=== PATIENT | female | born 1935 | race Caucasian/White ===

== ENCOUNTER 2016-11-17 09:18 | Inpatient (IN) | payer MEDICARE, BC ==
[2016-11-17] MEDS ORDERED: Ondansetron INJ* 2 MG/ML VIAL IV PRN (12:33)
[2016-11-17] MEDS ORDERED: Albuterol 2.5 MG/3 ML NEB.SOL* (0.083%) INH PRN (12:33)
[2016-11-17] MEDS ORDERED: Acetaminophen TAB* 325 MG PO PRN (12:33)
[2016-11-17] MEDS ORDERED: Dextrose 50% Syringe 50 ML* 25 GM/50 ML SYRINGE IV PUSH PRN (12:33)
[2016-11-17] MEDS ORDERED: Digoxin IV* 0.5 MG/2 ML AMP (0.25 MG/ML) IV SLOW PU ONE ×2 (12:45→16:00)
--- NOTE | 2016-11-17 13:22 | RAD ---
Indication: Pneumonia. Single frontal view of the chest performed at 1250 hours was reviewed. No prior study is available. No mediastinal shift is noted. Heart is of normal size and configuration. Lung hernández appear clear. IMPRESSION: NO ACTIVE CARDIOPULMONARY DISEASE IS NOTED.
[2016-11-17] MEDS: predniSONE TAB* 20 MG PO SCH (13:31)
[2016-11-17] MEDS: Metoprolol Tartrate TAB* 25 MG PO SCH ×2 (13:31→18:29)
[2016-11-17] MEDS: cefTRIAXone VIAL(*) 1,000 MG in NS 0.9% 50 ML* 50 ML IVPB SCH (14:07)
[2016-11-17] MEDS: Azithromycin IV(*) 500 MG in NS 0.9% 250 ML* 250 ML IVPB SCH (14:43)
[2016-11-17] MEDS: Diltiazem TAB* 30 MG PO SCH ×3 (14:45→23:37)
[2016-11-17 15:43] LABS: Hematocrit 33 % (35-47); Hemoglobin 10.8 g/dl (12.0-16.0); Mean Corpuscular HGB Conc 33 g/dl (31-36); Mean Corpuscular Hemoglobin 30 pg (27-31); Mean Corpuscular Volume 92 fL (80-97); Mean Platelet Volume 8 um3 (7.4-10.4); Red Blood Count 3.63 10^6/ul (4.0-5.4); Red Cell Distribution Width 14 % (10.5-15); White Blood Count 10.7 10^3/ul (3.5-10.8)
[2016-11-17 15:45] LABS: Add Diff/Slide Review? Slide Review Added; Comments Flag Yes
[2016-11-17 16:01] LABS: BUN/Creatinine Ratio 55.8 (8-20); EGFR African American 146.7 (>60); Magnesium 1.2 mg/dL (1.9-2.7); Potassium 3.1 mmol/L (3.5-5.0)
[2016-11-17 16:03] LABS: Calcium 5.3 mg/dL (8.6-10.3)
[2016-11-17 16:13] LABS: TSH (Thyroid Stimulating Horm) 0.83 mcIU/mL (0.34-5.60)
[2016-11-17 16:37] LABS: Urine Bacteria Absent (Absent)
[2016-11-17 16:39] LABS: Urine Bilirubin Negative (Negative); Urine Glucose 3+(>=500 mg/dL) (Negative); Urine Nitrite Negative (Negative)
--- NOTE | 2016-11-17 16:49 | PN ---
Hospitalist Progress Note Hospitalist MEDICINE PROCEDURE NOTE DATE OF PROCEDURE: 11/17/2016 SERVICE: Hospitalist LOCATION OF PROCEDURE: ICU Room 9 PROCEDURE: Midline placement under ultrasound guidance PROCEDURALIST: Moni Pedraza N.P. Consent obtain: Verbal, Long Dwell PIV. Patient stated understanding and agreement. Time out held: Not indicated INDICATION: Multiple attempts by staff members to obtain Labs and vascular access without success. Patient currently has a 22 gauge PIV in the left arm which is tenuous. Multiple lines needed in a critical care setting with pneumonia & Afib requiring multiple IV medications. PROCEDURE: Midline placed with ultrasound guidance in the left lower forearm cephalic. Patient sitting up right in bed. Pre-medication not indicated. Patient tolerated well and stated appreciation for placement of IV with minimal pain. Primary RN notified and at bedside to draw pending labs and blood cultures. Moni Tom
[2016-11-17 16:56] LABS: BUN/Creatinine Ratio 44.2 (8-20); Calcium 8.4 mg/dL (8.6-10.3); EGFR African American 82.1 (>60); EGFR Non-African American 63.8 (>60); Potassium 4.7 mmol/L (3.5-5.0)
[2016-11-17 17:07] LABS: Hematocrit 43 % (35-47); Hemoglobin 13.6 g/dl (12.0-16.0); Mean Corpuscular HGB Conc 32 g/dl (31-36); Mean Corpuscular Hemoglobin 29 pg (27-31); Mean Corpuscular Volume 92 fL (80-97); Mean Platelet Volume 9 um3 (7.4-10.4); Red Blood Count 4.65 10^6/ul (4.0-5.4); Red Cell Distribution Width 14 % (10.5-15); White Blood Count 14.7 10^3/ul (3.5-10.8)
[2016-11-17] MEDS: Albuterol/Ipratropium NEB.SOL* Albuterol 2.5 MG/Ipratropium 0.5 MG 3 ML INH SCH ×3 (17:10→23:15)
[2016-11-17 17:12] LABS: Add Diff/Slide Review? Slide Review Added; Comments Flag Yes
[2016-11-17 17:18] LABS: Calcium 8.4 mg/dL (8.6-10.3); EGFR African American 79.9 (>60); EGFR Non-African American 62.1 (>60); Magnesium 1.9 mg/dL (1.9-2.7); Potassium 4.8 mmol/L (3.5-5.0)
[2016-11-17 17:28] LABS: TSH (Thyroid Stimulating Horm) 1.1 mcIU/mL (0.34-5.60)
[2016-11-17] MEDS: Insulin LISPRO* 1 UNITS UNIT SUBCUT SCH (17:58)
[2016-11-17] MEDS: Atorvastatin* 20 MG TAB PO SCH (17:59)
[2016-11-17] MEDS ORDERED: Enoxaparin(*) 100 MG/ML SYR SUBCUT ONE (18:32)
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
[2016-11-17] MEDS: Mometasone/Formoter 200/5 MDI INH SCH (23:15)
[2016-11-18] MEDS: Metoprolol Tartrate TAB* 25 MG PO SCH ×4 (00:34→22:57)
--- NOTE | 2016-11-18 01:17 | CONS ---
CC: Dr. Puckett, [facility]; Olaf Jones NP,hospitalist service ; Dr. Mercado. * CARDIOLOGY CONSULT: DATE OF CONSULT: 11/17/16 HISTORY OF PRESENT ILLNESS: I was asked by Olaf Jones from hospitalist service to see this 80-year-old female patient who was transferred from [facility] today with rapid atrial fibrillation. The patient was admitted to [facility] because of left lower lobe infiltrate and pneumonia. She does have chronic medical conditions including diabetes mellitus type 2, gastroesophageal reflux disease, hyperlipidemia and systemic arterial hypertension. She had known history of chronic atrial fibrillation since 2008 and she is on Coumadin treatment. She was treated for her pneumonia, but she had an echocardiogram that was done on November 15, showed EF 30% to 35 %, biatrial enlargement, trace aortic insufficiency, moderate mitral insufficiency, moderate tricuspid insufficiency, moderate to severe pulmonary hypertension, dilated ascending aorta. It was noticed that she was on calcium channel lilli and beta lilli, but her heart rate was still uncontrolled. She was transferred for further medical management. In speaking to her, she gives no active symptoms of chest pain. She said her shortness improved. No orthopnea, no PND, no dizziness, no syncope, no history of congestive heart failure, no edema in the lower extremities, no hematochezia, no scattered rash, no abdominal pain, no syncope, no nausea, no vomiting is appreciated. PAST MEDICAL HISTORY: As outlined above. PAST SURGICAL HISTORY: Includes history of appendectomy, history of cancer of the uterus. She is status post total abdominal hysterectomy and bilateral salpingo- oophorectomy, history of umbilical hernia surgery. She gives no history of drinking and no illicit drug use, no history of smoking. MEDICATIONS: On discharge from [facility] include: 1. Diltiazem 120 mg t.i.d. 2. Metoprolol 25 mg b.i.d. 3. Lipitor 20 mg daily. 4. Lisinopril 20 mg daily. 5. Metformin 1000 in the morning. 6. Omeprazole 20 mg daily. 7. Evista 60 mg daily. 8. Coumadin adjusted to her PT and INR. Her medications as an inpatient include: 1. Tylenol 650 mg p.o. q.4 hours p.r.n. 2. Ventolin inhaler 200. 3. Lipitor 20 mg daily. 4. Azithromycin 500 mg q.24 hours. 5. Ceftriaxone 1000 mg q.24 hours. 6. Digoxin loaded just now, then 0.25 mg IV daily. 7. Diltiazem 30 mg p.o. q.6 hours. 8. Insulin adjusted to her blood sugar. 9. Metoprolol 25 mg p.o. q.6 hours. 10. Prednisone 60 mg daily. 11. Coumadin adjusted to her PT/INR. ALLERGIES: She is allergic to CIPRO and SULFA. FAMILY HISTORY: She does have father of [place] at age, according to her, 47. SOCIAL HISTORY: She is . She has 3 kids, doing well. PHYSICAL EXAMINATION: On exam, she is awake, alert and oriented. She feels better. Vitals: Blood pressure is 104/77, pulse is coming down to about 86. She is in atrial fibrillation. Respiratory rate 18 and she is afebrile with a temperature of 97.6. Head and Neck Exam: Normocephalic and atraumatic. Head, ears, nose, and throat essentially benign. Neck: Supple. JVP is not elevated. No carotid bruits. No masses in the neck is appreciated. Chest: Diminished air entry bilaterally at the bases. Heart: Irregularly irregular. S1, S2. No added sounds. No gallops, no rubs. Abdomen: Benign. Positive bowel sounds. Extremities: No edema, no cyanosis, no clubbing. Skin exam is normal. Psych: Normal affect and mood. 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 DIAGNOSTIC STUDIES/LAB DATA: Her chemistry is pending. Her white blood cell is 10.7, hemoglobin 10.8, hematocrit 33, platelets 160. Her echocardiogram as described. Her chest x-ray, no active cardiopulmonary disease noted. Her EKG done today at our facility, showed her to be in atrial fibrillation, heart rate is 111, borderline low voltage, nonspecific T abnormality. IMPRESSION: The patient is a 80-year-old with a transfer from [facility] with: 1. Diagnosed recently with left lower lobe pneumonia, on antibiotic treatment. 2. Rapid atrial fibrillation. Not well controlled, with history of atrial fibrillation, chronic, goes back to 2008. She is on Coumadin treatment. 3. Systemic arterial hypertension. 4. Diabetes mellitus type 2. 5. Hyperlipidemia. 6. Obesity. 7. Cardiomyopathy with an ejection fraction by recent echo of 30% to 35% of unknown duration. 8. Moderate mitral insufficiency. 9. [id number] tricuspid insufficiency and [id number] pulmonary hypertension. 10. Biatrial enlargement. 11. Abnormal EKG as described. PLAN: I have discussed this patient further with Olaf Jones from the hospitalist service. I agree with the current medical regimen with beta lilli , calcium channel lilli after adjusting the dosages and adding digoxin, which I believe it will help with her heart rate and her cardiomyopathy. It is not immediately clear the etiology for her cardiomyopathy and how long she had reduced left ventricular systolic function. Possibility in the differential includes tachycardia induced, especially she had history of atrial fibrillation since 2008. Other possibilities include hypertensive heart disease, ischemic cardiomyopathy, although she has just been free of thyroid cardiomyopathy or idiopathic cardiomyopathy. I think the plan at the present time is a treatment for her AFib with rate control. Continue Coumadin as you are already doing. Continue cardiomyopathy medication as you are already doing. Consideration for adding a very low dose CAITLIN inhibitor if blood pressure allows and follow up accordingly. I answered all her concerns and questions up to her satisfaction. Thank you very much for asking us to participate in the care of this patient. At one point, we might need to follow up the echo after she is treated for her pneumonia for followup on her left ventricular systolic function. TIME SPENT: More than half of at least 35 plus minutes was [id number] in education and counseling mode, explaining the above and talking to the patient. [id number]/CPS #: [id number] PACO
[2016-11-18] MEDS: Albuterol/Ipratropium NEB.SOL* Albuterol 2.5 MG/Ipratropium 0.5 MG 3 ML INH SCH ×2 (03:39→07:45)
[2016-11-18] MEDS: Diltiazem TAB* 30 MG PO SCH ×4 (06:27→22:57)
[2016-11-18 06:50] LABS: Hematocrit 42 % (35-47); Hemoglobin 13.9 g/dl (12.0-16.0); Mean Corpuscular HGB Conc 33 g/dl (31-36); Mean Corpuscular Hemoglobin 30 pg (27-31); Mean Corpuscular Volume 90 fL (80-97); Mean Platelet Volume 8 um3 (7.4-10.4); Red Blood Count 4.69 10^6/ul (4.0-5.4); Red Cell Distribution Width 14 % (10.5-15); White Blood Count 11.6 10^3/ul (3.5-10.8)
[2016-11-18 06:51] LABS: Add Diff/Slide Review? Slide Review Added; Comments Flag Yes
[2016-11-18 07:40] LABS: Digoxin 1.2 ng/ml (0.8-2.0)
[2016-11-18 07:41] LABS: BUN/Creatinine Ratio 39.5 (8-20); Blood Urea Nitrogen 30 mg/dL (6-24); CO2 Carbon Dioxide 30 mmol/L (22-32); Calcium 8.3 mg/dL (8.6-10.3); Chloride 99 mmol/L (101-111); EGFR African American 94.7 (>60); EGFR Non-African American 73.6 (>60); Glucose 252 mg/dL (70-100); Sodium 133 mmol/L (133-145)
[2016-11-18] MEDS: Mometasone/Formoter 200/5 MDI INH SCH ×2 (07:45→20:01)
[2016-11-18] MEDS: Digoxin TAB* 0.125 MG PO SCH (09:04)
[2016-11-18] MEDS: Omeprazole CAP* 20 MG PO SCH (09:05)
[2016-11-18] MEDS: predniSONE TAB* 20 MG PO SCH (09:05)
[2016-11-18] MEDS: Insulin LISPRO* 1 UNITS UNIT SUBCUT SCH ×3 (09:22→17:29)
[2016-11-18 09:35] LABS: Anion Gap 4 mmol/L (2-11)
[2016-11-18] MEDS ORDERED: Diltiazem TAB* 30 MG PO ONE (09:55)
[2016-11-18] MEDS ORDERED: Digoxin IV* 0.5 MG/2 ML AMP (0.25 MG/ML) IV SLOW PU ONE (09:56)
[2016-11-18] MEDS ORDERED: Diltiazem TAB* 30 MG ONE (09:59)
[2016-11-18] MEDS ORDERED: Digoxin IV* 0.5 MG/2 ML AMP (0.25 MG/ML) ONE (09:59)
[2016-11-18] MEDS ORDERED: Ipratropium 0.5MG/2.5ML NEB* 0.5 MG/2.5 ML NEB.SOLN INH SCH (10:00)
--- NOTE | 2016-11-18 10:26 | PN ---
Subjective Date of Service: 11/18/16 Interval History: HRs uncontrolled thia AM, frequently in 140s-150s, occasionally higher. Patient seen this morning. Biggest complaint is fatigue. Does not feel SOB although notes some wheezing. No chest pain or SOB. Cough has now become productive of calix sputum, no blood. Family History: Unchanged from Admission Social History: Unchanged from Admission Past Medical History: Unchanged from Admission Objective Active Medications: Acetaminophen (Tylenol Tab*) 650 mg PO Q4H PRN Atorvastatin Calcium (Lipitor*) 20 mg PO 1700 [facility] Dextrose (D50w Syringe 50 Ml*) 12.5 gm IV PUSH .FOR FS < 60 - SS PRN Digoxin (Lanoxin Tab*) 0.125 mg PO DAILY [facility] Diltiazem HCl (Cardizem Tab*) 60 mg PO Q6HR [facility] Ceftriaxone Sodium 1,000 mg/ (Sodium Chloride) 50 mls @ 200 mls/hr IVPB Q24H [facility] Azithromycin 500 mg/ Sodium (Chloride) 250 mls @ 250 mls/hr IVPB Q24H [facility] Insulin Human Lispro (Humalog*) 0 units SUBCUT AC MARCEL Ipratropium [place] (Atrovent 0.5 Mg Neb.Essence*) 0.5 mg INH Q4H [facility] Levalbuterol HCl (Xopenex 1.25 Mg/0.5 Ml Neb.Essence*) 1.25 mg INH Q2H PRN Metoprolol Tartrate (Lopressor Tab*) 25 mg PO Q6H [facility] Mometasone Furoate/Formoterol Fumar (Dulera 200/5 Mdi*) 2 puff INH BID [facility] Omeprazole (Prilosec Cap*) 20 mg PO DAILY [facility] Ondansetron HCl (Zofran Inj*) 4 mg IV Q6H PRN Prednisone (Deltasone Tab*) 40 mg PO DAILY [facility] Warfarin Sodium (Coumadin Tab(*)) 5 mg PO SuTuThSa@1700 [facility] Warfarin Sodium (Coumadin Tab(*)) 6 mg PO MoWeFr@1700 [facility] Vital Signs 11/17/16 11/17/16 11/17/16 11:19 11:20 11:30 Temperature Pulse Rate 125 156 90 Respiratory 28 Rate Blood Pressure 127/109 118/101 (mmHg) O2 Sat by Pulse 97 98 97 Oximetry 11/17/16 11/17/16 11/17/16 11:36 11:39 11:45 Temperature 97.6 F Pulse Rate 91 170 86 Respiratory 25 19 20 Rate Blood Pressure 133/82 121/77 121/77 (mmHg) O2 Sat by Pulse 97 97 97 Oximetry 11/17/16 11/18/16 11/18/16 23:40 00:00 00:01 Temperature 97.0 F Pulse Rate 94 84 89 Respiratory 16 18 15 Rate Blood Pressure 125/73 105/57 (mmHg) O2 Sat by Pulse 96 95 95 Oximetry 11/18/16 11/18/16 11/18/16 07:31 07:56 08:00 Temperature 97.5 F Pulse Rate 86 132 Respiratory 13 122 Rate Blood Pressure 142/84 (mmHg) O2 Sat by Pulse 98 100 Oximetry Oxygen Devices in Use Now: Nasal Cannula - 2L Appearance: Elderly, F, laying in bed in NAD Eyes: No Scleral Icterus Ears/Nose/Mouth/Throat: Mucous Membranes Moist Neck: NL Appearance and Movements; NL JVP Respiratory: Symmetrical Chest Expansion and Respiratory Effort, - - Moderate air movement, minimal wheezing, diminished BS in bases Cardiovascular: - - IRIR, tachycardia Abdominal: NL Sounds; No Tenderness; No Distention Lymphatic: No Cervical Adenopathy Extremities: - - Trace B/L LE edema Skin: No Rash or Ulcers Neurological: Alert and Oriented x 3 Result Diagrams: 11/18/16 06:36 11/18/16 06:36 Microbiology and Other Data: Microbiology 11/18/16 02:55 Gram Stain - Final Sputum 11/17/16 15:55 Legionella Urinary Antigen - Final Urine Negative Legionella Streptococcus pneumoniae Ag Screen - Final Negative S. pneumo Antigen 11/17/16 15:45 Influenza Types A,B Antigen (TANIA) - Final Nasal Specimen received for Influenza A/B Molecular testing Assess/Plan/Problems-Billing Assessment: CAP, AFib with RVR in a 80 yo F with hx of AFib on coumadin, HTN, HLD, DM, GERD - Patient Problems (1) Afib Current Visit: Yes Comment: HRs uncontrolled this morning. Gave additional IV Digoxin 125 mcg x 1 and additional PO Cardizem. Spoke with Cardiology who recommended increase beta-lilli due to cardiomyopathy, will increase Metoprolol to 50 mg q8h. INR subtherapeutic, continue Coumadin for now. Minimize beta-agonists (change to Ipratroprum and xopenex). Monitor K and Mg, redraw this AM. (2) CAP (community acquired pneumonia) Current Visit: Yes Comment: Continue CTX and Azithromycin. Seems to have some component of RAD. Decrease prednisone to 40 mg daily. Change duonebs to ATC ipratropium and change prn albuterol to xopenex. (3) Cardiomyopathy Current Visit: Yes Comment: EF 30-35% on echo from [facility]. Etiology unknown at this time. Continue rate control as above. Will need stress test in the future. Add CAITLIN-I if BPs allow. (4) Diabetes Current Visit: Yes Comment: Continue HISS, add back home Metformin. If BGs remain elevated can start Lantus. (5) GERD (gastroesophageal reflux disease) Current Visit: Yes Comment: Continue PPI (6) DVT prophylaxis Current Visit: Yes Comment: Lovenox SQ while INR subtherapeutic
[2016-11-18] MEDS ORDERED: Enoxaparin(*) 40 MG/0.4 ML SYR SUBCUT SCH (11:00)
[2016-11-18] MEDS ORDERED: Diltiazem TAB* 30 MG PO SCH (12:00)
[2016-11-18] MEDS: cefTRIAXone VIAL(*) 1,000 MG in NS 0.9% 50 ML* 50 ML IVPB SCH (12:15)
[2016-11-18] MEDS: metFORMIN* 1,000 MG TAB PO SCH (12:16)
[2016-11-18] MEDS ORDERED: Senna TAB PO PRN (12:46)
[2016-11-18] MEDS: Levalbuterol 1.25MG/0.5ML NEB INH PRN ×3 (12:47→23:05)
[2016-11-18] MEDS: Ipratropium 0.5MG/2.5ML NEB* 0.5 MG/2.5 ML NEB.SOLN INH SCH ×4 (12:47→23:05)
[2016-11-18] MEDS ORDERED: Metoprolol Tartrate IV* 1 MG/ML 5 ML VIAL ONE (12:50)
[2016-11-18] MEDS ORDERED: Metoprolol Tartrate IV* 1 MG/ML 5 ML VIAL IV ONE (12:50)
[2016-11-18] MEDS: Azithromycin IV(*) 500 MG in NS 0.9% 250 ML* 250 ML IVPB SCH (14:03)
[2016-11-18] MEDS: Atorvastatin* 20 MG TAB PO SCH (16:53)
[2016-11-18] MEDS: Warfarin TAB(*) 5 MG PO SCH (16:53)
[2016-11-18] MEDS: Enoxaparin(*) 100 MG/ML SYR SUBCUT SCH (21:16)
[2016-11-19] MEDS: Ipratropium 0.5MG/2.5ML NEB* 0.5 MG/2.5 ML NEB.SOLN INH SCH ×2 (03:38→08:25)
[2016-11-19] MEDS: Metoprolol Tartrate TAB* 25 MG PO SCH ×2 (05:44→16:23)
[2016-11-19] MEDS: Diltiazem TAB* 30 MG PO SCH ×2 (05:45→12:02)
[2016-11-19 06:35] LABS: BUN/Creatinine Ratio 26.8 (8-20); Calcium 8.4 mg/dL (8.6-10.3); EGFR African American 86.7 (>60); EGFR Non-African American 67.4 (>60); Potassium 4.2 mmol/L (3.5-5.0)
[2016-11-19] MEDS: Mometasone/Formoter 200/5 MDI INH SCH ×2 (08:20→21:52)
[2016-11-19] MEDS: Insulin LISPRO* 1 UNITS UNIT SUBCUT SCH ×3 (08:22→18:22)
[2016-11-19] MEDS: Digoxin TAB* 0.125 MG PO SCH (08:31)
[2016-11-19] MEDS: Enoxaparin(*) 100 MG/ML SYR SUBCUT SCH ×2 (08:31→22:08)
--- NOTE | 2016-11-19 08:58 | PN ---
Subjective Date of Service: 11/19/16 Interval History: Patient seen this morning. No new complaints, still feels "tired". Denies SOB, chest pain. No BM in a few days. Anxious about ELAYNE today, a bit tearful. Family History: Unchanged from Admission Social History: Unchanged from Admission Past Medical History: Unchanged from Admission Objective Active Medications: Acetaminophen (Tylenol Tab*) 650 mg PO Q4H PRN Atorvastatin Calcium (Lipitor*) 20 mg PO 1700 [facility] Dextrose (D50w Syringe 50 Ml*) 12.5 gm IV PUSH .FOR FS < 60 - SS PRN Digoxin (Lanoxin Tab*) 0.125 mg PO DAILY [facility] Diltiazem HCl (Cardizem Tab*) 30 mg PO Q6HR [facility] Docusate Sodium (Colace Cap*) 100 mg PO DAILY PRN Enoxaparin Sodium (Lovenox(*)) 100 mg SUBCUT Q12HR [facility] Ceftriaxone Sodium 1,000 mg/ (Sodium Chloride) 50 mls @ 200 mls/hr IVPB Q24H [facility] Azithromycin 500 mg/ Sodium (Chloride) 250 mls @ 250 mls/hr IVPB Q24H [facility] Insulin Human Lispro (Humalog*) 0 units SUBCUT AC [facility] Ipratropium Minetto (Atrovent 0.5 Mg Neb.Essence*) 0.5 mg INH [id number] AWAKE [facility] Levalbuterol HCl (Xopenex 1.25 Mg/0.5 Ml Neb.Essence*) 1.25 mg INH Q2H PRN Metformin HCl (Glucophage*) 1,000 mg PO DAILY [facility] Metoprolol Tartrate (Lopressor Tab*) 50 mg PO Q8H [facility] Mometasone Furoate/Formoterol Fumar (Dulera 200/5 Mdi*) 2 puff INH BID [facility] Omeprazole (Prilosec Cap*) 20 mg PO DAILY [facility] Ondansetron HCl (Zofran Inj*) 4 mg IV Q6H PRN Prednisone (Deltasone Tab*) 40 mg PO DAILY [facility] Senna (Senokot Tab*) 1 tab PO DAILY PRN Warfarin Sodium (Coumadin Tab(*)) 5 mg PO SuTuThSa@1700 [facility] Warfarin Sodium (Coumadin Tab(*)) 6 mg PO MoWeFr@1700 [facility] Vital Signs 11/18/16 11/18/16 11/18/16 09:00 09:04 09:31 Temperature 97.7 F Pulse Rate 94 151 156 Respiratory 15 23 18 Rate Blood Pressure 112/84 109/88 117/96 (mmHg) O2 Sat by Pulse 97 97 96 Oximetry 11/18/16 11/18/16 11/18/16 20:30 21:00 21:01 Temperature Pulse Rate 105 109 89 Respiratory 16 16 18 Rate Blood Pressure 97/79 82/70 (mmHg) O2 Sat by Pulse 96 95 95 Oximetry 11/19/16 11/19/16 11/19/16 06:31 07:00 08:00 Temperature 97.7 F Pulse Rate 79 78 Respiratory 14 14 Rate Blood Pressure 135/70 153/84 (mmHg) O2 Sat by Pulse 99 99 Oximetry Oxygen Devices in Use Now: Nasal Cannula - 2L Appearance: Elderly, F, laying in bed in NAD Eyes: No Scleral Icterus Ears/Nose/Mouth/Throat: - - Dry MM Neck: NL Appearance and Movements; NL JVP Respiratory: Symmetrical Chest Expansion and Respiratory Effort, - - Diminished in bases, no wheezing, no rales or ronchi Cardiovascular: - - IRIR, tachycardic Abdominal: - - Soft, non-distended, mild TTP, BS+ Lymphatic: No Cervical Adenopathy Extremities: - - Trace LE edema Skin: No Rash or Ulcers Neurological: Alert and Oriented x 3 Result Diagrams: 11/18/16 06:36 11/19/16 05:55 Assess/Plan/Problems-Billing Assessment: CAP, AFib with RVR in a 80 yo F with hx of AFib on coumadin, HTN, HLD, DM, GERD - Patient Problems (1) Afib Current Visit: Yes Comment: HRs better controlled today but still fast at rest. Plan is for ELAYNE and possible cardioversion today. Continue Digoxin, Cardizem and increased Metoprolol. INR subtherapeutic, continue Coumadin for now as well as Lovenox bridge. Minimize beta-agonists (change to Ipratroprum and xopenex). Monitor K and Mg. (2) CAP (community acquired pneumonia) Current Visit: Yes Comment: Patient received ABx at [place]. Will give one more dose of CTX today and then stop. ATC ipratropium and prn xopenex. Will hold prednisone. (3) Cardiomyopathy Current Visit: Yes Comment: EF 30-35% on echo from [place]. Etiology unknown at this time. Continue rate control as above. Will need stress test in the future. Add CAITLIN-I if BPs allow. (4) Diabetes Current Visit: Yes Comment: Continue HISS and home Metformin. Will see if BGs improve with cessation of prednisone. (5) GERD (gastroesophageal reflux disease) Current Visit: Yes Comment: Continue PPI (6) DVT prophylaxis Current Visit: Yes Comment: Lovenox SQ while INR subtherapeutic Status and Disposition: Inpatient for continued rate control/ELAYNE cardioversion.
[2016-11-19] MEDS ORDERED: predniSONE TAB* 20 MG PO SCH (09:00)
[2016-11-19 09:54] LABS: Magnesium 1.7 mg/dL (1.9-2.7)
[2016-11-19] MEDS ORDERED: Polyethylene Glycol 3350* 17 GM PACKET PO ONE (11:30)
[2016-11-19] MEDS: Omeprazole CAP* 20 MG PO SCH (12:02)
[2016-11-19] MEDS ORDERED: Ipratropium 0.5MG/2.5ML NEB* 0.5 MG/2.5 ML NEB.SOLN INH SCH (13:00)
[2016-11-19] MEDS: cefTRIAXone VIAL(*) 1,000 MG in NS 0.9% 50 ML* 50 ML IVPB SCH (13:19)
[2016-11-19] MEDS ORDERED: Midazolam* 1 MG/ML 5 ML VIAL (5 MG) ONE (13:25)
[2016-11-19] MEDS ORDERED: fentaNYL* 50 MCG/ML 2 ML VIAL (100 MCG VIAL) ONE (13:25)
[2016-11-19] MEDS ORDERED: Lidocaine 2% VISCOUS* 15 ML UDC ONE (13:26)
[2016-11-19] MEDS ORDERED: Naloxone* 0.4 MG/ML 1 ML VIAL ONE (13:26)
[2016-11-19] MEDS ORDERED: Flumazenil* 0.1 MG/ML 5 ML MDV ONE (13:26)
[2016-11-19] MEDS ORDERED: Magnesium Sulfate 2 GM IV* 2 GM/50 ML BAG IVPB ONE (13:36)
[2016-11-19] MEDS ORDERED: Magnesium Sulfate 2 GM IV* 2 GM/50 ML BAG ONE (13:39)
[2016-11-19] MEDS ORDERED: Amiodarone 150 MG IVPREMIX* 150 MG/100 ML BAG IV ONE (14:38)
[2016-11-19] MEDS ORDERED: Amiodarone IV VIAL* 6 ML ONE (14:38)
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
[2016-11-19] MEDS: metFORMIN* 1,000 MG TAB PO SCH (16:08)
[2016-11-19] MEDS: Amiodarone TAB* 200 MG PO SCH ×2 (16:20→22:06)
[2016-11-19] MEDS: Docusate CAP* 100 MG PO PRN (16:20)
[2016-11-19] MEDS: Warfarin TAB(*) 6 MG PO SCH (18:22)
[2016-11-20] MEDS: Mometasone/Formoter 200/5 MDI INH SCH ×2 (08:37→21:28)
[2016-11-20] MEDS: Enoxaparin(*) 100 MG/ML SYR SUBCUT SCH (08:49)
[2016-11-20] MEDS: Insulin LISPRO* 1 UNITS UNIT SUBCUT SCH ×3 (08:49→17:43)
[2016-11-20] MEDS: Omeprazole CAP* 20 MG PO SCH (08:52)
[2016-11-20] MEDS: Amiodarone TAB* 200 MG PO SCH ×2 (08:52→20:14)
[2016-11-20] MEDS: metFORMIN* 1,000 MG TAB PO SCH (08:52)
[2016-11-20 09:29] LABS: BUN/Creatinine Ratio 22.2 (8-20); Calcium 8.2 mg/dL (8.6-10.3); EGFR African American 100.8 (>60); EGFR Non-African American 78.3 (>60); Magnesium 1.9 mg/dL (1.9-2.7); Potassium 4.2 mmol/L (3.5-5.0)
[2016-11-20] MEDS ORDERED: Magnesium Oxide TAB* 400 MG PO ONE (09:33)
--- NOTE | 2016-11-20 09:38 | PN ---
Subjective Date of Service: 11/20/16 Interval History: Had short burst of SVT this AM. Patient seen this morning. Reports feeling well overall but still very tired. Reports some cough this morning, productive of calix sputum, ?maybe slightly pink -tinged. No fever or chills. Family History: Unchanged from Admission Social History: Unchanged from Admission Past Medical History: Unchanged from Admission Objective Active Medications: Acetaminophen (Tylenol Tab*) 650 mg PO Q4H PRN Amiodarone HCl (Cordarone Tab*) 200 mg PO BID [facility] Dextrose (D50w Syringe 50 Ml*) 12.5 gm IV PUSH .FOR FS < 60 - SS PRN Docusate Sodium (Colace Cap*) 100 mg PO DAILY PRN Enoxaparin Sodium (Lovenox(*)) 100 mg SUBCUT Q12HR [facility] Insulin Human Lispro (Humalog*) 0 units SUBCUT AC [facility] Levalbuterol HCl (Xopenex 1.25 Mg/0.5 Ml Neb.Essence*) 1.25 mg INH Q2H PRN Metformin HCl (Glucophage*) 1,000 mg PO DAILY [facility] Mometasone Furoate/Formoterol Fumar (Dulera 200/5 Mdi*) 2 puff INH BID [facility] Omeprazole (Prilosec Cap*) 20 mg PO DAILY [facility] Ondansetron HCl (Zofran Inj*) 4 mg IV Q6H PRN Rosuvastatin Calcium (Crestor (Nf)) 10 mg PO BEDTIME [facility] Senna (Senokot Tab*) 1 tab PO DAILY PRN Warfarin Sodium (Coumadin Tab(*)) 5 mg PO SuTuThSa@1700 [facility] Warfarin Sodium (Coumadin Tab(*)) 6 mg PO MoWeFr@1700 [facility] Vital Signs 11/19/16 11/19/16 11/19/16 10:00 10:01 10:30 Temperature Pulse Rate 84 83 80 Respiratory 12 15 15 Rate Blood Pressure 139/81 128/96 (mmHg) O2 Sat by Pulse 98 98 99 Oximetry 11/19/16 11/19/16 11/19/16 16:01 16:15 16:31 Temperature Pulse Rate 68 62 62 Respiratory 17 15 21 Rate Blood Pressure 114/67 127/71 123/69 (mmHg) O2 Sat by Pulse 98 98 94 Oximetry 11/20/16 11/20/16 07:26 08:40 Temperature 97.3 F Pulse Rate 70 78 Respiratory 16 14 Rate Blood Pressure 125/59 (mmHg) O2 Sat by Pulse 96 94 Oximetry Oxygen Devices in Use Now: Nasal Cannula - 2L Appearance: Elderly, F, laying in bed in NAD Eyes: No Scleral Icterus Ears/Nose/Mouth/Throat: Mucous Membranes Moist Neck: NL Appearance and Movements; NL JVP Respiratory: Symmetrical Chest Expansion and Respiratory Effort, - - Slightly diminished in bases, some scattered ronchi on R lower lung field Cardiovascular: NL Sounds; No Murmurs; No JVD, RRR Abdominal: NL Sounds; No Tenderness; No Distention Lymphatic: No Cervical Adenopathy Extremities: No Edema, - Neurological: Alert and Oriented x 3 Result Diagrams: 11/18/16 06:36 11/20/16 09:00 Assess/Plan/Problems-Billing Assessment: CAP, AFib with RVR in a 80 yo F with hx of AFib on coumadin, HTN, HLD, DM, GERD - Patient Problems (1) Afib Current Visit: Yes Comment: Appreciate Cardiology assistance, successful ELAYNE on 11/19, remains in NSR this morning. Continue Amiodarone. INR pending this morning, continue Coumadin for now as well as Lovenox bridge. Keep K and Mg replete. (2) CAP (community acquired pneumonia) Current Visit: Yes Comment: Completed ABx course (3) Cardiomyopathy Current Visit: Yes Comment: EF 30-35% on echo from [place]. Etiology unknown at this time. Continue rate control as above. Will need stress test in the future. Start low dose Lisinopril 2.5 mg daily. Beta-lilli on hold. Changed from Atorvastatin to Rosuvastatin due to Amiodarone interactions (4) Diabetes Current Visit: Yes Comment: Continue HISS and home Metformin. (5) GERD (gastroesophageal reflux disease) Current Visit: Yes Comment: Continue PPI (6) DVT prophylaxis Current Visit: Yes Comment: Lovenox SQ while INR subtherapeutic Status and Disposition: Continue to monitor on tele, PT eval, ?need for SONY
--- NOTE | 2016-11-20 10:05 | PN ---
Subjective Date of Service: 11/20/16 - CC: cough, weak Interval History: Breathing is stable. Complete resolution of fluttering sensation in her chest. Her cough is more productive, alejandro, rarely pink tinge. She hasn't tried walking yet, feels washed out. Medications Active Medications: Acetaminophen (Tylenol Tab*) 650 mg PO Q4H PRN PRN Reason: FEVER/PAIN Amiodarone HCl (Cordarone Tab*) 200 mg PO BID [facility] Last Admin: 11/20/16 08:52 Dose: 200 mg Dextrose (D50w Syringe 50 Ml*) 12.5 gm IV PUSH .FOR FS < 60 - SS PRN PRN Reason: FS < 60 Docusate Sodium (Colace Cap*) 100 mg PO DAILY PRN PRN Reason: CONSTIPATION Last Admin: 11/19/16 16:20 Dose: 100 mg Insulin Human Lispro (Humalog*) 0 units SUBCUT AC [facility] PRN Reason: Protocol Last Admin: 11/20/16 08:49 Dose: 3 units Levalbuterol HCl (Xopenex 1.25 Mg/0.5 Ml Neb.Essence*) 1.25 mg INH Q2H PRN PRN Reason: SOB/WHEEZING Last Admin: 11/18/16 23:05 Dose: 1.25 mg Lisinopril (Prinivil Tab*) 2.5 mg PO DAILY [facility] Metformin HCl (Glucophage*) 1,000 mg PO DAILY [facility] Last Admin: 11/20/16 08:52 Dose: 1,000 mg Mometasone Furoate/Formoterol Fumar (Dulera 200/5 Mdi*) 2 puff INH BID [facility] Last Admin: 11/20/16 08:37 Dose: 2 puff Omeprazole (Prilosec Cap*) 20 mg PO DAILY [facility] Last Admin: 11/20/16 08:52 Dose: 20 mg Ondansetron HCl (Zofran Inj*) 4 mg IV Q6H PRN PRN Reason: NAUSEA Rosuvastatin Calcium (Crestor (Nf)) 10 mg PO BEDTIME [facility] Last Admin: 11/19/16 22:09 Dose: 10 mg Senna (Senokot Tab*) 1 tab PO DAILY PRN PRN Reason: CONSTIPATION Warfarin Sodium (Coumadin Tab(*)) 5 mg PO SuTuThSa@1700 [facility] PRN Reason: Protocol Last Admin: 11/18/16 16:53 Dose: 5 mg Warfarin Sodium (Coumadin Tab(*)) 6 mg PO MoWeFr@1700 [facility] PRN Reason: Protocol Last Admin: 11/19/16 18:22 Dose: 6 mg Objective Vital Signs: Temp Pulse Resp BP Pulse Ox 97.3 F 78 14 125/59 94 11/20/16 07:26 11/20/16 08:40 11/20/16 08:40 11/20/16 07:26 11/20/16 08:40 Oxygen Devices in Use Now: Nasal Cannula - 2L Appearance: elderly female, lying 30 degrees comfortable, smiling. Eyes: No Scleral Icterus, PERRLA Ears/Nose/Mouth/Throat: Clear Oropharnyx, Mucous Membranes Moist Neck: NL Appearance and Movements; NL JVP, No Thyroid Enlargement, Masses Respiratory: Clear to Auscultation - rhonchorous cough. Cardiovascular: NL Sounds; No Murmurs; No JVD Abdominal: NL Sounds; No Tenderness; No Distention Extremities: No Edema, No Clubbing, Cyanosis Skin: No Rash or Ulcers Neurological: Alert and Oriented x 3, NL Muscle Strength and Tone - in bed. Lines/Tubes/Other Access: Clean, Dry and Intact Peripheral IV Laboratory Results: 11/18/16 06:36 11/20/16 09:00 INR (Anticoag Therapy) 2.22 (0.89-1.11) H 11/20/16 09:00 TSH 1.10 mcIU/mL (0.34-5.60) 11/17/16 16:15 11/17/16 11/17/16 11/17/16 16:15 18:45 22:00 Troponin I 0.00 0.00 0.00 Diagnostic Imaging: ECHO at [facility]: EF 30% ELAYNE 11/19/16 EF 45-50%, mild MR, TR, bi atrial enlargement. No clot in appendage, evidence of low flow/Rouleaux formation. small PFO by color Doppler. EKG Data: Monitor: NSR. Assessment/Plan 80 yo female with longstanding paroxysmal atrial fibrillation on chronic coumodin admitted with pneumonia, in afib, RVR and new drop in EF. Rate has been difficult to control. Now s/p electrical CV, EF had improved with rate control. Large atria indicate high risk of recurrent afib. AFIB: -Continue coumodin and lovenox bridge until INR theraputic. -Future option of NOAC if INR's hard to stabilize. Amiodarone will increase INR. -Maintaining sinus rhythm with amiodarone. HTN: -Well controlled with lisinopril. Continue abx/supportive care for pneumonia. Continue CAD risk factor modification. I stopped atorvastatin and replaced with rosuvastatin due to amiodarone interactions. Cardiology will follow distantly. Follow up in [place] with me (or Dr Ibanez) in November with ECG should be scheduled at discharge.
[2016-11-20] MEDS: Lisinopril TAB* 5 MG PO SCH (10:08)
[2016-11-20] MEDS: Docusate CAP* 100 MG PO PRN (12:06)
[2016-11-20] MEDS: Warfarin TAB(*) 5 MG PO SCH (17:44)
--- NOTE | 2016-11-20 22:06 | CARD ---
CC: Dr. Kings Puckett, [place], [place]; Hospitalist Service ELECTRICAL CARDIOVERSION: DATE OF CARDIOVERSION: 11/19/16 PROCEDURE: The indications, risks and benefits of a combined transesophageal echo and cardioversion were discussed with the patient. I had communicated with her primary care physician and confirmed that she was in paroxysmal AFib for years, not persistent or chronic. The patient was amenable to p roceeding. The patient received a total of 5 mg of Versed and 50 mcg of fentanyl throughout the combined proced ure. The transesophageal echo did not show thrombus in the left atrial appendage and the decision w as made to proceed with cardioversion. The patient had AP patches on and 200 joules was synchronously delivered across the chest wall with successful cardioversion to sinus rhythm. She had initially frequent PACs and some short bursts of SVT, but then settled out to sinus bradycardia. CONCLUSION: Successful cardioversion from atrial fibrillation to normal sinus rhythm. No complicat ions. [id number]/[facility] #: [id number]
[2016-11-21] MEDS ORDERED: Magnesium Sulfate 2 GM IV* 2 GM/50 ML BAG IVPB ONE ×2 (05:42→07:11)
[2016-11-21 05:52] LABS: BUN/Creatinine Ratio 19.2 (8-20); EGFR African American 99.2 (>60); EGFR Non-African American 77.1 (>60); Magnesium 1.8 mg/dL (1.9-2.7)
--- NOTE | 2016-11-21 08:28 | PN ---
Subjective Date of Service: 11/21/16 Interval History: Patient had isolated episodes of SVT yesterday afternoon and overnight. Seen this morning sitting up in chair eating breakfast. Says she is feeling great. Energy is returning. Denies chest pain, palpitations, cough. A little weak with PT yesterday but felt she did well after being in bed for so long. Family History: Unchanged from Admission Social History: Unchanged from Admission Past Medical History: Unchanged from Admission Objective Active Medications: Acetaminophen (Tylenol Tab*) 650 mg PO Q4H PRN Amiodarone HCl (Cordarone Tab*) 200 mg PO BID [facility] Dextrose (D50w Syringe 50 Ml*) 12.5 gm IV PUSH .FOR FS < 60 - SS PRN Docusate Sodium (Colace Cap*) 100 mg PO DAILY PRN Heparin Sodium (Porcine) (Heparin Flush Picc/Ml/Cvc(*)) 1 - 3 ml FLUSH 0600, 1800 [facility] Insulin Human Lispro (Humalog*) 0 units SUBCUT AC [facility] Levalbuterol HCl (Xopenex 1.25 Mg/0.5 Ml Neb.Essence*) 1.25 mg INH Q2H PRN Lisinopril (Prinivil Tab*) 2.5 mg PO DAILY [facility] Metformin HCl (Glucophage*) 1,000 mg PO DAILY [facility] Mometasone Furoate/Formoterol Fumar (Dulera 200/5 Mdi*) 2 puff INH BID [facility] Omeprazole (Prilosec Cap*) 20 mg PO DAILY [facility] Ondansetron HCl (Zofran Inj*) 4 mg IV Q6H PRN Rosuvastatin Calcium (Crestor (Nf)) 10 mg PO BEDTIME [facility] Senna (Senokot Tab*) 1 tab PO DAILY [facility] Warfarin Sodium (Coumadin Tab(*)) 5 mg PO SuTuThSa@1700 [facility] Warfarin Sodium (Coumadin Tab(*)) 6 mg PO MoWeFr@1700 [facility] Vital Signs 11/20/16 11/20/16 11/20/16 08:40 11:23 17:12 Temperature 97.7 F 98.2 F Pulse Rate 78 77 79 Respiratory 14 16 16 Rate Blood Pressure 131/61 132/60 (mmHg) O2 Sat by Pulse 94 96 97 Oximetry 11/20/16 11/20/16 11/20/16 19:30 19:56 20:00 Temperature 97.5 F Pulse Rate 81 77 Respiratory 16 16 16 Rate Blood Pressure 156/69 (mmHg) O2 Sat by Pulse 97 97 Oximetry 11/20/16 11/21/16 11/21/16 23:40 03:37 06:35 Temperature 97.4 F 97.8 F Pulse Rate 79 71 Respiratory 16 16 18 Rate Blood Pressure 131/87 120/54 (mmHg) O2 Sat by Pulse 98 97 Oximetry 11/21/16 11/21/16 11/21/16 07:25 07:44 07:45 Temperature 97.6 F Pulse Rate 78 74 Respiratory 18 18 Rate Blood Pressure 138/57 (mmHg) O2 Sat by Pulse 98 99 99 Oximetry Oxygen Devices in Use Now: Nasal Cannula - 2L Appearance: Elderly, F, sitting in chair in NAD Eyes: No Scleral Icterus Ears/Nose/Mouth/Throat: Mucous Membranes Moist Neck: NL Appearance and Movements; NL JVP Respiratory: Symmetrical Chest Expansion and Respiratory Effort, - - Slightly diminished in bases, no rales Cardiovascular: NL Sounds; No Murmurs; No JVD, RRR Abdominal: NL Sounds; No Tenderness; No Distention Lymphatic: No Cervical Adenopathy Extremities: - - Trace LE edema Skin: No Rash or Ulcers Neurological: Alert and Oriented x 3 Result Diagrams: 11/18/16 06:36 11/21/16 05:13 Assess/Plan/Problems-Billing Assessment: CAP, AFib with RVR in a 80 yo F with hx of AFib on coumadin, HTN, HLD, DM, GERD - Patient Problems (1) Afib Current Visit: Yes Comment: Appreciate Cardiology assistance, successful ELAYNE on 11/19, remains in NSR though having episodes of SVT. Will add back Metoprolol 25 mg BID. Continue Amiodarone. INR therapeutic, Lovenox bridge stopped. Keep K and Mg replete. (2) CAP (community acquired pneumonia) Current Visit: Yes Comment: Completed ABx course (3) Cardiomyopathy Current Visit: Yes Comment: EF 30-35% on echo from [place]. Etiology unknown at this time. Continue rate control as above. Will need stress test in the future. Start low dose Lisinopril 2.5 mg daily. Beta-lilli resume. Changed from Atorvastatin to Rosuvastatin due to Amiodarone interactions (4) Diabetes Current Visit: Yes Comment: Continue HISS and home Metformin. (5) GERD (gastroesophageal reflux disease) Current Visit: Yes Comment: Continue PPI (6) DVT prophylaxis Current Visit: Yes Comment: Coumadin Status and Disposition: Continue to monitor on tele, PT eval, ?need for SONY
[2016-11-21] MEDS: Insulin LISPRO* 1 UNITS UNIT SUBCUT SCH ×3 (08:31→17:12)
[2016-11-21] MEDS: Lisinopril TAB* 5 MG PO SCH (08:33)
[2016-11-21] MEDS: metFORMIN* 1,000 MG TAB PO SCH (08:33)
[2016-11-21] MEDS: Omeprazole CAP* 20 MG PO SCH (08:33)
[2016-11-21] MEDS: Amiodarone TAB* 200 MG PO SCH ×2 (08:33→22:37)
[2016-11-21] MEDS ORDERED: Metoprolol Tartrate TAB* 25 MG ONE (08:38)
[2016-11-21] MEDS: Metoprolol Tartrate TAB* 25 MG PO SCH ×2 (08:40→22:36)
[2016-11-21] MEDS: Mometasone/Formoter 200/5 MDI INH SCH ×2 (08:54→20:09)
--- NOTE | 2016-11-21 11:02 | TEE ---
Patient: IRAIDA WYATT [facility] [place] Rec#: [id number] : 1935 Date: 11/19/2016 Age: 80y Height: 170.18 cm / 67.0 in Weight: 103.42 kg / 227.9 lbs Sex: F BSA: 2.14 Room#: [facility] Type: Inpatient Referring: Kathryn Mercado MD Performing: Laurence Bearden MD Reading: Laurence Bearden MD Process Project Engineer: Isa Pettit RDCS Nurse: Iraida Bell Transesophageal Echocardiogram Indication: A-fib BP: 116/71 HR: 119 Rhythm: A-Fib Findings History: Uterine cancer, DM, HLD, HTN, chronic atrial fibrillation. Technical Comments: The study quality is good. Left Ventricle: The left ventricular chamber size is normal. There is mildly decreased left ventricular systolic function. The estimated ejection fraction is 45-50%. The assessment of diastolic function is non-diagnostic. Left Atrium: The left atrium is mildly dilated. Spontaneous echo contrast is present in the left atrium cavity and appendage. The left atrial appendage velocity is mildly reduced. No thrombus is visualized within the left atrium. There is no thrombus visualized in the left atrial appendage. Right Ventricle: The right ventricular cavity size is normal. The right ventricular global systolic function is mildly to moderately reduced. Right Atrium: The right atrial cavity size is severely dilated. The bubble study is negative. A patent foramen ovale is demonstrated by color Doppler. Aortic Valve: The aortic valve is trileaflet. The aortic valve leaflets are mildly thickened.Lambl's excressence noted, incidental finding. There is a trace of aortic regurgitation. There is no evidence of aortic stenosis. Mitral Valve: The mitral valve leaflets are mildly thickened. There is mild mitral regurgitation. There is no evidence of mitral stenosis. Tricuspid Valve: The tricuspid valve leaflets are normal. There is mild tricuspid regurgitation. The right ventricular systolic pressure is estimated at 27 mmHg. There is evidence that pulmonary hypertension may be underestimated. There is no tricuspid stenosis. Pulmonic Valve: The pulmonic valve appears normal. There is a trace pulmonic regurgitation. There is no pulmonic stenosis. Pericardium: There is no significant pericardial effusion. Aorta: There is mild dilatation of the ascending aorta. The aortic root is normal in size. There is plaque visualized in the descending aorta. There is minimal atherosclerotic plaque in the visualized segments of the aorta. Pulmonary Artery: The main pulmonary artery appears normal. Venous: The bicaval view was obtained and appears normal. The pulmonary veins appear normal. 3 of 4 visualized. The pulmonary veins appear normal in size. ELAYNE Procedures: All standard views were attempted within the limitations of patient tolerance and safety. History and physical as well as labs were reviewed. The patient was in a fasting state. Risks and benefits of the procedure, including alternatives, were discussed and written informed consent was obtained. The patient and/or their health care access services representative expressed understanding of the procedure, risks and benefits. Baseline and continuous monitoring of blood pressure, heart rate, pulse oximetry and heart rhythm was performed throughout the procedure. The appropriate time-out procedure was performed as per [facility] protocol. The patient was placed in the left lateral decubitus position. The patient's posterior pharynx was anesthetized with 20ml of 2% viscous lidocaine. The patient received IV Midazolam with a total dose of 4 mg. The patient received IV Fentanyl with a total dose of 50 mcg. An oral bite block was inserted for protection of oral dentition. The multiplane transesophageal echocardiogram probe was inserted through the posterior oropharynx and advanced into the esophagus without difficulty. Multiple 2D images were obtained of the heart and its related structures. Color flow Doppler was used for evaluation. Spectral Doppler was also used. The atrial septum was interrogated with color flow Doppler. At the conclusion of the procedure the probe was removed with continuous suction without complications. The patient tolerated the procedure with no apparent complications. Contrast: Normal saline was used as contrast for the bubble study. Image 42. Intravenous contrast was used to help determine presence of intracardiac shunting. Conclusions The patient was in atrial fibrillation throughout the study. There is mildly decreased left ventricular systolic function. The estimated ejection fraction is 45-50%. The right ventricular global systolic function is mildly to moderately reduced. The left atrium is mildly dilated. Spontaneous echo contrast is present in the left atrium cavity and appendage. The left atrial appendage velocity is mildly reduced. There is no thrombus visualized in the left atrial appendage. A patent foramen ovale is demonstrated by color Doppler. There is a trace of aortic regurgitation. There is mild mitral regurgitation. There is mild tricuspid regurgitation. There is mild dilatation of the ascending aorta. Compared with echo of 11/15/16, LV EF has improved from 30%, RV function has improved, the degree of MR and TR have improved from moderate. PA pressure previoiusly 61 mmHg. Measurements Name Value Normal Range RAd ISD 4CH 6.3 cm (3.4 - 4.9) RA (A4C)W 5.3 cm (2.9 - 4.6) Aortic Annulus 1.9 cm (1.4 - 2.6) Ao root diameter (2D) 3.4 cm (2.1 - 3.5) Ascending Ao 3.5 cm (2.1 - 3.4) LAd ISD 4CH 4.2 cm (2.9 - 5.3) LA ISD 4CH W 5.2 cm (2.5 - 4.5) Name Value Normal Range MV E-wave Vmax 0.67 m/sec - MV deceleration time 130.8 msec - Name Value Normal Range TR Vmax 2.2 m/sec - TR peak gradient 19 mmHg - RAP 8 mmHg - RVSP 27 mmHg -
[2016-11-21] MEDS: Warfarin TAB(*) 5 MG PO SCH (17:14)
[2016-11-22 05:37] LABS: BUN/Creatinine Ratio 17.3 (8-20); Calcium 8.1 mg/dL (8.6-10.3); EGFR African American 96.1 (>60); EGFR Non-African American 74.7 (>60); Magnesium 1.9 mg/dL (1.9-2.7); Potassium 4.2 mmol/L (3.5-5.0)
[2016-11-22] MEDS: Mometasone/Formoter 200/5 MDI INH SCH ×2 (08:42→20:56)
[2016-11-22] MEDS: Insulin LISPRO* 1 UNITS UNIT SUBCUT SCH ×3 (09:24→17:20)
[2016-11-22] MEDS: Metoprolol Tartrate TAB* 25 MG PO SCH ×2 (09:25→21:37)
[2016-11-22] MEDS: metFORMIN* 1,000 MG TAB PO SCH (09:25)
[2016-11-22] MEDS: Omeprazole CAP* 20 MG PO SCH (09:25)
[2016-11-22] MEDS: Lisinopril TAB* 5 MG PO SCH (09:25)
[2016-11-22] MEDS: Amiodarone TAB* 200 MG PO SCH ×2 (09:25→21:37)
[2016-11-22] MEDS: Docusate CAP* 100 MG PO PRN (10:27)
--- NOTE | 2016-11-22 13:59 | PN ---
Subjective Date of Service: 11/22/16 Interval History: Pt is feeling ok. She has been having blood clots drip down from her nose to her throat which then she is able to cough up. This started just today. She states that earlier today she worked with PT and walked 4x around the floor without difficulty. She finally had a BM today. Family History: Unchanged from Admission Social History: Unchanged from Admission Past Medical History: Unchanged from Admission Objective Active Medications: Acetaminophen (Tylenol Tab*) 650 mg PO Q4H PRN PRN Reason: FEVER/PAIN Amiodarone HCl (Cordarone Tab*) 200 mg PO BID [facility] Last Admin: 11/22/16 09:25 Dose: 200 mg Dextrose (D50w Syringe 50 Ml*) 12.5 gm IV PUSH .FOR FS < 60 - SS PRN PRN Reason: FS < 60 Docusate Sodium (Colace Cap*) 100 mg PO DAILY PRN PRN Reason: CONSTIPATION Last Admin: 11/22/16 10:27 Dose: 100 mg Heparin Sodium (Porcine) (Heparin Flush Picc/Ml/Cvc(*)) 1 - 3 ml FLUSH 0600, 1800 [facility] PRN Reason: Protocol Last Admin: 11/22/16 05:45 Dose: 1 ml Insulin Human Lispro (Humalog*) 0 units SUBCUT AC [facility] PRN Reason: Protocol Last Admin: 11/22/16 12:15 Dose: 6 units Levalbuterol HCl (Xopenex 1.25 Mg/0.5 Ml Neb.Essence*) 1.25 mg INH Q2H PRN PRN Reason: SOB/WHEEZING Last Admin: 11/18/16 23:05 Dose: 1.25 mg Lisinopril (Prinivil Tab*) 2.5 mg PO DAILY [facility] Last Admin: 11/22/16 09:25 Dose: 2.5 mg Metformin HCl (Glucophage*) 1,000 mg PO DAILY [facility] Last Admin: 11/22/16 09:25 Dose: 1,000 mg Metoprolol Tartrate (Lopressor Tab*) 25 mg PO BID [facility] Last Admin: 11/22/16 09:25 Dose: 25 mg Mometasone Furoate/Formoterol Fumar (Dulera 200/5 Mdi*) 2 puff INH BID [facility] Last Admin: 11/22/16 08:42 Dose: 2 puff Omeprazole (Prilosec Cap*) 20 mg PO DAILY [facility] Last Admin: 11/22/16 09:25 Dose: 20 mg Ondansetron HCl (Zofran Inj*) 4 mg IV Q6H PRN PRN Reason: NAUSEA Rosuvastatin Calcium (Crestor (Nf)) 10 mg PO BEDTIME [facility] Last Admin: 11/21/16 22:37 Dose: 10 mg Senna (Senokot Tab*) 1 tab PO DAILY PRN PRN Reason: CONSTIPATION Last Admin: 11/22/16 12:16 Dose: 1 tab Warfarin Sodium (Coumadin Tab(*)) 5 mg PO SuTuThSa@1700 [facility] PRN Reason: Protocol Last Admin: 11/21/16 17:14 Dose: 5 mg Warfarin Sodium (Coumadin Tab(*)) 6 mg PO MoWeFr@1700 [facility] PRN Reason: Protocol Last Admin: 11/19/16 18:22 Dose: 6 mg Vital Signs 11/21/16 11/21/16 11/21/16 15:36 19:39 19:43 Temperature 97.5 F 98.0 F Pulse Rate 77 79 Respiratory 16 18 16 Rate Blood Pressure 140/57 127/61 (mmHg) O2 Sat by Pulse 98 99 Oximetry 11/21/16 11/22/16 11/22/16 22:36 00:16 00:24 Temperature 98.7 F Pulse Rate 78 71 Respiratory 16 18 Rate Blood Pressure 126/55 118/56 (mmHg) O2 Sat by Pulse 98 Oximetry 11/22/16 11/22/16 11/22/16 04:12 04:29 07:24 Temperature 97.8 F 98.2 F Pulse Rate 71 72 74 Respiratory 18 16 20 Rate Blood Pressure 108/51 130/52 (mmHg) O2 Sat by Pulse 98 98 97 Oximetry 11/22/16 11/22/16 11/22/16 07:27 08:00 08:42 Temperature Pulse Rate 81 108 Respiratory 16 Rate Blood Pressure 141/63 (mmHg) O2 Sat by Pulse Oximetry 11/22/16 10:59 Temperature 98.6 F Pulse Rate 74 Respiratory 20 Rate Blood Pressure 112/59 (mmHg) O2 Sat by Pulse 92 Oximetry Oxygen Devices in Use Now: Nasal Cannula - 2L Appearance: Elderly female sitting in a chair, NAD Eyes: No Scleral Icterus Ears/Nose/Mouth/Throat: Mucous Membranes Moist Respiratory: Symmetrical Chest Expansion and Respiratory Effort, Clear to Auscultation Cardiovascular: NL Sounds; No Murmurs; No JVD, RRR, - - 2+ LE edema Abdominal: NL Sounds; No Tenderness; No Distention Extremities: No Clubbing, Cyanosis Skin: No Rash or Ulcers, No Nodules or Sclerosis Neurological: Alert and Oriented x 3 Result Diagrams: 11/18/16 06:36 11/22/16 04:52 Microbiology and Other Data: Microbiology 11/18/16 02:55 Gram Stain - Final Sputum 11/17/16 15:55 Legionella Urinary Antigen - Final Urine Negative Legionella Streptococcus pneumoniae Ag Screen - Final Negative S. pneumo Antigen 11/17/16 15:45 Influenza Types A,B Antigen (TANIA) - Final Nasal Specimen received for Influenza A/B Molecular testing Assess/Plan/Problems-Billing Ms Burdick is a 80 yo F with a hx of AFib on coumadin, HTN, HLD, DM, GERD who presented initially to [facility] with c/o respiratory illness and was admitted for treatment of pna and rapid afib but subsequently transferred to [facility] for further management of her uncontrolled afib. - Patient Problems (1) Afib Current Visit: Yes Status: Acute Code(s): I48.91 - UNSPECIFIED ATRIAL FIBRILLATION SNOMED Code(s): 32070083 Comment: The patient was cardioverted on 11/19 and has remained in NSR. Continue amiodarone and metoprolol. INR is now therapeutic. She is having bleeding likely from her nasopharynx-will monitor this overnight and if it worsens will need ENT eval. Otherwise she is stable for d/c home. (2) CAP (community acquired pneumonia) Current Visit: Yes Status: Acute Code(s): J18.9 - PNEUMONIA, UNSPECIFIED ORGANISM SNOMED Code(s): 428832043 Comment: The patient is coughing up some tannish colored sputum but overall improved from the pneumonia. She has completed a full course of Abx therapy. (3) Cardiomyopathy Current Visit: Yes Status: Acute Code(s): I42.9 - CARDIOMYOPATHY, UNSPECIFIED SNOMED Code(s): 58371386 Comment: EF 30-35% on echo from [place]. Etiology unknown at this time. Continue metoprolol and lisinopril. She will need to follow up with cardiology next month (needs appt scheduled on d/c with EKG). She will likely need stress test and follow up echo. (4) Diabetes Current Visit: Yes Status: Acute Code(s): E11.9 - TYPE 2 DIABETES MELLITUS WITHOUT COMPLICATIONS SNOMED Code(s): 58175635 Comment: Sugars are elevated but she has not been receiving her invokana. Continue metformin and lispro sliding scale for now. On d/c I suspect her sugars will improve with resuming her invokana. (5) GERD (gastroesophageal reflux disease) Current Visit: Yes Status: Acute Code(s): K21.9 - GASTRO-ESOPHAGEAL REFLUX DISEASE WITHOUT ESOPHAGITIS SNOMED Code(s): 448573540 Comment: Continue omeprazole (6) DVT prophylaxis Current Visit: Yes Status: Acute Code(s): HYY0821 - SNOMED Code(s): 091168084 Comment: Coumadin (7) Full code status Current Visit: Yes Status: Acute Code(s): Z78.9 - OTHER SPECIFIED HEALTH STATUS SNOMED Code(s): 406516512 Status and Disposition: Continue to monitor on tele, PT eval, ?need for SONY
[2016-11-22] MEDS: Warfarin TAB(*) 6 MG PO SCH (17:09)
[2016-11-23 04:50] LABS: Hematocrit 38 % (35-47); Hemoglobin 12.6 g/dl (12.0-16.0); Mean Corpuscular HGB Conc 33 g/dl (31-36); Mean Corpuscular Hemoglobin 30 pg (27-31); Mean Corpuscular Volume 90 fL (80-97); Mean Platelet Volume 8 um3 (7.4-10.4); Red Blood Count 4.24 10^6/ul (4.0-5.4); Red Cell Distribution Width 14 % (10.5-15); White Blood Count 9.1 10^3/ul (3.5-10.8)
[2016-11-23 05:04] LABS: BUN/Creatinine Ratio 18.1 (8-20); Calcium 8.3 mg/dL (8.6-10.3); EGFR African American 85.5 (>60); EGFR Non-African American 66.5 (>60)
[2016-11-23] MEDS: Mometasone/Formoter 200/5 MDI INH SCH ×2 (08:28→20:43)
[2016-11-23] MEDS: Amiodarone TAB* 200 MG PO SCH ×2 (08:45→21:05)
[2016-11-23] MEDS: Lisinopril TAB* 5 MG PO SCH (08:45)
[2016-11-23] MEDS: Insulin LISPRO* 1 UNITS UNIT SUBCUT SCH ×3 (08:45→17:03)
[2016-11-23] MEDS: Metoprolol Tartrate TAB* 25 MG PO SCH ×2 (08:45→21:05)
[2016-11-23] MEDS: metFORMIN* 1,000 MG TAB PO SCH (08:45)
[2016-11-23] MEDS: Omeprazole CAP* 20 MG PO SCH (08:45)
--- NOTE | 2016-11-23 10:49 | PN ---
Subjective Date of Service: 11/23/16 Interval History: Patient seen and examined at bedside. Patient denies any shortness of breath. Patient had 11 beat run of V-tach this AM. Asymptomatic. States she had abdominal distention last night which cause her severe discomfort. Now improved after voiding and a BM this AM. Ambulated in hallway without difficulty. Family History: Unchanged from Admission Social History: Unchanged from Admission Past Medical History: Unchanged from Admission Objective Active Medications: Acetaminophen (Tylenol Tab*) 650 mg PO Q4H PRN Amiodarone HCl (Cordarone Tab*) 200 mg PO BID [facility] Docusate Sodium (Colace Cap*) 100 mg PO DAILY PRN Heparin Sodium (Porcine) (Heparin Flush Picc/Ml/Cvc(*)) 1 - 3 ml FLUSH 0600, 1800 [facility] Insulin Human Lispro (Humalog*) 0 units SUBCUT AC [facility] Levalbuterol HCl (Xopenex 1.25 Mg/0.5 Ml Neb.Essence*) 1.25 mg INH Q2H PRN Lisinopril (Prinivil Tab*) 2.5 mg PO DAILY [facility] Metformin HCl (Glucophage*) 1,000 mg PO DAILY [facility] Metoprolol Tartrate (Lopressor Tab*) 25 mg PO BID [facility] Mometasone Furoate/Formoterol Fumar (Dulera 200/5 Mdi*) 2 puff INH BID [facility] Omeprazole (Prilosec Cap*) 20 mg PO DAILY [facility] Ondansetron HCl (Zofran Inj*) 4 mg IV Q6H PRN Senna (Senokot Tab*) 1 tab PO DAILY PRN Warfarin Sodium (Coumadin Tab(*)) 5 mg PO SuTuThSa@1700 [facility] Warfarin Sodium (Coumadin Tab(*)) 6 mg PO MoWeFr@1700 [facility] Vital Signs 11/22/16 11/22/16 11/23/16 20:00 20:57 00:05 Temperature 97.3 F Pulse Rate 78 Respiratory 16 16 20 Rate Blood Pressure 131/59 (mmHg) O2 Sat by Pulse 96 95 Oximetry Oxygen Devices in Use Now: Nasal Cannula - 2L Appearance: sitting up in chair, NAD Eyes: No Scleral Icterus, PERRLA Ears/Nose/Mouth/Throat: NL Teeth, Lips, Gums Neck: NL Appearance and Movements; NL JVP Respiratory: Symmetrical Chest Expansion and Respiratory Effort, Clear to Auscultation Cardiovascular: NL Sounds; No Murmurs; No JVD, RRR Abdominal: NL Sounds; No Tenderness; No Distention Extremities: No Edema Skin: No Rash or Ulcers Neurological: Alert and Oriented x 3, NL Muscle Strength and Tone Lines/Tubes/Other Access: Clean, Dry and Intact Peripheral IV Nutrition: Taking PO's Result Diagrams: 11/23/16 04:12 11/23/16 04:12 Assess/Plan/Problems-Billing Ms Burdick is a 80 yo F with a hx of AFib on coumadin, HTN, HLD, DM, GERD who presented initially to [facility] with c/o respiratory illness and was admitted for treatment of pna and rapid afib but subsequently transferred to [facility] for further management of her uncontrolled afib. - Patient Problems (1) Ventricular tachycardia Comment: Asymptomatic 11 beat run of V-tach this morning. D/w cardiology who recommends stress test before discharge. Ordered for tomorrow. Continue telemetry for now. (2) Afib Comment: The patient was cardioverted on 11/19 and has remained in NSR. Continue amiodarone and metoprolol. INR is now therapeutic. Nasopharynx bleeding resolved (3) CAP (community acquired pneumonia) Comment: The patient is coughing up some tannish colored sputum but overall improved from the pneumonia. She has completed a full course of Abx therapy. (4) Cardiomyopathy Comment: EF 30-35% on echo from [facility] and 45-50% on echocardiogram here. With new V-tach today will get stress test here before discharge. Etiology unknown at this time. Continue metoprolol and lisinopril. She will need to follow up with cardiology next month (needs appt scheduled on d/c with EKG). Will need follow up echo. (5) Diabetes Comment: SUgars improved. Continue metformin and lispro sliding scale for now. On d/c sugars should improve with resuming her invokana. (6) GERD (gastroesophageal reflux disease) Current Visit: Yes Status: Acute Comment: Continue omeprazole (7) DVT prophylaxis Comment: Coumadin (8) Full code status Status and Disposition: Will need stress test and then stable to discharge hopefully tomorrow.
[2016-11-23 13:30] LABS: Magnesium 1.7 mg/dL (1.9-2.7)
[2016-11-23] MEDS: Warfarin TAB(*) 5 MG PO SCH (17:26)
[2016-11-23] MEDS ORDERED: CMCS: Melatonin (NF) 3 MG TAB PO SCH (21:00)
[2016-11-24] MEDS: Mometasone/Formoter 200/5 MDI INH SCH (07:38)
[2016-11-24] MEDS: Insulin LISPRO* 1 UNITS UNIT SUBCUT SCH ×3 (08:06→12:39)
--- NOTE | 2016-11-24 10:07 | RAD ---
Edited for charges. INDICATION: History of V. tach. Chest pain. COMPARISON: Chest x-ray November 17, 2016 TECHNIQUE: A single day SPECT protocol was utilized. Rest images were acquired following the intravenous injection of 10.8 millicuries of technetium 99m tetrofosmin. Pharmacologic stress images were acquired following the intravenous administration of 25.2 millicuries of technetium 99m tetrofosmin. FINDINGS: There is a defect in the anterior wall which reverses with attenuation correction. The findings are therefore suspicious for breast attenuation artifact. There are no other defects.. The cardiac chamber size is normal. There are no wall motion abnormalities. The ejection fraction is calculated at 73 during stress. Source images show airspace disease in the left lung base. Suggest a repeat chest x-ray. IMPRESSION: PROBABLE BREAST ATTENUATION ARTIFACT. AIRSPACE DISEASE LEFT LUNG BASE. SUGGEST A FOLLOW-UP CHEST X-RAY. ASSESSMENT: LOW-RISK Based on imaging criteria from ACC/AHA 2002 Guideline Update for the Management of Patients With Chronic Stable Angina Table 23. Noninvasive Risk Stratification. MTDD
[2016-11-24] MEDS: Metoprolol Tartrate TAB* 25 MG PO SCH (10:46)
[2016-11-24] MEDS: Lisinopril TAB* 5 MG PO SCH (10:46)
[2016-11-24] MEDS: metFORMIN* 1,000 MG TAB PO SCH (10:46)
[2016-11-24] MEDS: Amiodarone TAB* 200 MG PO SCH (10:47)
[2016-11-24] MEDS: Omeprazole CAP* 20 MG PO SCH (10:48)
[2016-11-24] MEDS ORDERED: Hydrocortisone 1% CREAM* 30 GM TUBE TOPICAL SCH (11:00)
[2016-11-24 12:13] VITALS: BP 131/87
[2016-11-24] MEDS ORDERED: Regadenoson* 0.4 MG/5 ML SYRINGE ONE (13:29)
[2016-11-24] MEDS ORDERED: Metoprolol Tartrate IV* 1 MG/ML 5 ML VIAL ONE (13:30)
[2016-11-24] MEDS ORDERED: Aminophylline IV* 25 MG/ML 10 ML VIAL ONE (13:30)
--- NOTE | 2016-11-24 14:48 | PN ---
Subjective Date of Service: 11/24/16 Interval History: Patient seen and examined at bedside. Patient tolerated stress test without difficulty. No further V-tach seen on telemetry. Patient ambulating with walker without difficulty. Family History: Unchanged from Admission Social History: Unchanged from Admission Past Medical History: Unchanged from Admission Objective Active Medications: Acetaminophen (Tylenol Tab*) 650 mg PO Q4H PRN Amiodarone HCl (Cordarone Tab*) 200 mg PO BID [facility] Docusate Sodium (Colace Cap*) 100 mg PO DAILY PRN Heparin Sodium (Porcine) (Heparin Flush Picc/Ml/Cvc(*)) 1 - 3 ml FLUSH 0600, 1800 [facility] Hydrocortisone (Hytone Cream 1%*) 1 applic TOPICAL BID [facility] Insulin Human Lispro (Humalog*) 0 units SUBCUT AC [facility] Levalbuterol HCl (Xopenex 1.25 Mg/0.5 Ml Neb.Essence*) 1.25 mg INH Q2H PRN Lisinopril (Prinivil Tab*) 2.5 mg PO DAILY [facility] Melatonin (Melatonin (Nf)) 3 mg PO BEDTIME [facility] Metformin HCl (Glucophage*) 1,000 mg PO DAILY [facility] Metoprolol Tartrate (Lopressor Tab*) 25 mg PO BID [facility] Mometasone Furoate/Formoterol Fumar (Dulera 200/5 Mdi*) 2 puff INH BID [facility] Omeprazole (Prilosec Cap*) 20 mg PO DAILY [facility] Ondansetron HCl (Zofran Inj*) 4 mg IV Q6H PRN Rosuvastatin Calcium (Crestor (Nf)) 10 mg PO BEDTIME [facility] Senna (Senokot Tab*) 1 tab PO DAILY [facility] Warfarin Sodium (Coumadin Tab(*)) 5 mg PO 1700 [facility] Vital Signs 11/23/16 11/23/16 11/23/16 19:39 20:05 20:46 Temperature 98.6 F Pulse Rate 76 78 Respiratory 16 16 20 Rate Blood Pressure 113/58 (mmHg) O2 Sat by Pulse 93 94 Oximetry 11/23/16 11/24/16 11/24/16 23:34 03:28 07:15 Temperature 97.3 F 97.9 F 98.4 F Pulse Rate 71 72 78 Respiratory 16 16 16 Rate Blood Pressure 116/54 106/41 138/62 (mmHg) O2 Sat by Pulse 97 93 94 Oximetry 11/24/16 11/24/16 08:00 11:14 Temperature 97.6 F Pulse Rate 72 Respiratory 16 20 Rate Blood Pressure 131/87 (mmHg) O2 Sat by Pulse 95 Oximetry Oxygen Devices in Use Now: Nasal Cannula - 2L Appearance: sitting in chair, NAD Eyes: No Scleral Icterus, PERRLA Ears/Nose/Mouth/Throat: NL Teeth, Lips, Gums Neck: NL Appearance and Movements; NL JVP Respiratory: Symmetrical Chest Expansion and Respiratory Effort, Clear to Auscultation Cardiovascular: NL Sounds; No Murmurs; No JVD, RRR Abdominal: NL Sounds; No Tenderness; No Distention Extremities: No Edema Skin: No Rash or Ulcers Neurological: Alert and Oriented x 3, NL Muscle Strength and Tone Result Diagrams: 11/23/16 04:12 11/23/16 04:12 Assess/Plan/Problems-Billing Ms Burdick is a 80 yo F with a hx of AFib on coumadin, HTN, HLD, DM, GERD who presented initially to [facility] with c/o respiratory illness and was admitted for treatment of pna and rapid afib but subsequently transferred [place] [facility] [place] further management of her uncontrolled afib. - Patient Problems (1) Ventricular tachycardia (2) Afib (3) CAP (community acquired pneumonia) (4) Cardiomyopathy (5) Diabetes (6) GERD (gastroesophageal reflux disease) Current Visit: Yes Status: Acute (7) DVT prophylaxis (8) Full code status Status and Disposition: Stable to be discharged home.
[2016-11-24] MEDS ORDERED: Warfarin TAB(*) 5 MG PO SCH (17:00)
--- NOTE | 2016-11-25 02:46 | DS ---
DISCHARGE SUMMARY: ADDENDUM: DISCHARGE PLAN: The patient will need to have an INR drawn on 11/24/16, with the results ca lled to Dr. Puckett and then subsequently every Tuesday, Tuesday while she is on amiodarone. KYRA YORK, TIE FASTENER [id number]/CPS #: [id number]
--- NOTE | 2016-11-25 03:44 | DS ---
CC: Dr. Laurence Bearden; Dr. Puckett* DISCHARGE SUMMARY: DATE OF ADMISSION: 11/17/16 DATE OF DISCHARGE: 11/24/16 PRIMARY CARE PROVIDER: Dr. Puckett. ATTENDING PHYSICIAN: Dr. Sandra Celis* (report dictated by Amparo Lester NP). CONSULTATIONS WHILE IN THE HOSPITAL: Dr. Laurence Bearden. PRIMARY DIAGNOSES: 1. Pneumonia. 2. Atrial fibrillation with rapid ventricular response. SECONDARY DIAGNOSES: Hypertension, hyperlipidemia, and diabetes. STUDIES WHILE IN THE HOSPITAL: 1. Chest x-ray portable 11/17/16, no active cardiopulmonary disease is noted. 2. Nuclear cardiac stress test 11/24/16, probable breast attenuation artifact, airspace disease, left lung base. Suggest followup x-ray. 3. Transesophageal echocardiogram 11/19/16, mild decreased left ventricular systolic function. The estimated ejection fraction is 45% to 50%. The right ventricular global systolic function is mild to moderately reduced. The left atrium is mildly dilated. The left atrial appendage velocity is mildly reduced. There is no thrombus visualized in the left atrial appendage. Compared with echo of 11/15/16, left ventricular EF has improved from 30%. RV function has improved. The degree of MR and TR have improved from moderate PA pressure approximately 61 mmHg. MEDICATIONS AT THE TIME OF DISCHARGE: New medications: 1. Amiodarone 200 mg oral twice daily. 2. Metoprolol 25 mg oral twice daily. 3. Crestor 10 mg oral at bedtime. Changed medications: 1. Warfarin 5 mg oral at bedtime. 2. Lisinopril decreased to 2.5 mg oral every day. The following medications are the medications that the patient came in on: 1. Glucophage 1000 mg oral daily. 2. Evista 60 mg oral daily. 3. Prilosec 20 mg oral daily. 4. Invokana 100 mg oral daily. HISTORY OF PRESENT ILLNESS AND HOSPITAL COURSE: Ms. Burdick is a 80-year-old female with past medical history significant for hypertension, hyperlipidemia, diabetes, atrial fibrillation, who initially presented to [facility] on 11/09/16 in acute respiratory failure. She was admitted there for pneumonia and while admitted, she went into atrial fibrillation with rapid ventricular response. Echocardiogram there showed a low ejection fraction. Despite medication changes, the patient's rate was difficult to control and transfer request was made to [facility]. The patient was transferred here on 11/17/16. The patient was admitted to the ICU for close management of her atrial fibrillation. Consultation was obtained from Cardiology. Please refer to Dr. Mercado's dictation for details. The patient was anticoagulated and had a transesophageal echocardiogram on . Please refer to dictation for details. Subsequently, she was placed on amiodarone in an attempt to keep her in normal sinus rhythm. She was maintained on warfarin and maintained the therapeutic INR. Warfarin dose has been cut down as it interacts with amiodarone. In regards to her other cardiac medications, her statin was changed to rosuvastatin to decrease interaction with amiodarone and atenolol was switched to metoprolol to also help keep her in normal sinus rhythm. After her cardioversion, she did stay in normal sinus rhythm. On 11/23/16, she had an 11 beat run of most likely SVT with an aberrancy. Recommendation was for the patient to proceed with a stress test. The patient had a stress test on 11/24/16 that was low risk. She will be discharged with close Cardiology followup. For her pneumonia, she was kept on Dulera and had breathing treatment as needed. She was weaned off oxygen. She did not have any further evidence of any fever during the hospitalization. For her diabetes, blood sugars were controlled with lispro sliding scale as we do not have her home diabetes medication, this will be restarted upon discharge. For hyperlipidemia, her statin therapy was changed to rosuvastatin and she has been provided with a prescription for this. Her blood pressure was maintained with Lopressor as well as lisinopril now at a much lower dose of 2.5 mg. On 11/24/16, vitals were as follows: Temperature 84, heart rate 78, respiratory rate 16, oxygen saturation 95% on room air, blood pressure 138/62. At this point, she was stable for discharge. DISCHARGE PLANNING: The patient is discharged on a consistent carb, heart healthy diet with no caffeine. The patient's activity as tolerated. The patient has been instructed to follow up with Dr. Puckett. She has an appointment with him on December 02 at 11:30 a.m. and subsequently has an appointment with Dr. Ibanez at 11 a.m. The patient should return to the hospital if she experiences any worsening shortness of breath, high fever, chest pain, or palpitations. I have reviewed all these instructions with the patient and she is agreeable to discharge today. This is a summarized report of a complex medical history and hospital stay. For more details, please see the entire medical record. TIME SPENT: Time of discharge was 60 minute and 35 minutes was spent with the patient discussing medications and discharge plan. CONDITION ON DISCHARGE: Stable. AMPARO LESTER NP ADDENDUM TO DISCHARGE SUMMARY: DISCHARGE PLAN: The patient will need to have an INR drawn on 11/24/16 , with the results called to Dr. Puckett and then subsequently every Tuesday, Tuesday while she is on amiodarone. AMPARO LESTER NP [id number]/[facility]PS #: [id number]/CPS #: [id number] PACO
== END 2016-11-24 17:15 | disposition home health service (06) | DRG 308 ==
LOC: ICU 11:24 → MEDTELE 11-19 20:30
PROVIDERS: ADMIT Internal Medicine; ATTEND Internal Medicine
PROC: 05HF33Z Insertion of Infusion Device into Left Cephalic Vein, Percutaneous Approach (ICD-10-PCS; 2016-11-17)
PROC: B54NZZA Ultrasonography of Left Upper Extremity Veins, Guidance (ICD-10-PCS; 2016-11-17)
PROC: 5A2204Z Restoration of Cardiac Rhythm, Single (ICD-10-PCS; principal; 2016-11-20)
PROC: B24BZZ4 Ultrasonography of Heart with Aorta, Transesophageal (ICD-10-PCS; 2016-11-21)
DX: I48.0 Paroxysmal atrial fibrillation (principal); J18.9 Pneumonia, unspecified organism; I47.2 Ventricular tachycardia; I42.9 Cardiomyopathy, unspecified; I27.2 Other secondary pulmonary hypertension; I48.2 Chronic atrial fibrillation; E11.9 Type 2 diabetes mellitus without complications; I08.3 Combined rheumatic disorders of mitral, aortic and tricuspid valves; I10 Essential (primary) hypertension; I47.1 Supraventricular tachycardia; E66.9 Obesity, unspecified; I77.819 Aortic ectasia, unspecified site; K21.9 Gastro-esophageal reflux disease without esophagitis; E78.5 Hyperlipidemia, unspecified; Z85.42 Personal history of malignant neoplasm of other parts of uterus; Z90.710 Acquired absence of both cervix and uterus; Z88.1 Allergy status to other antibiotic agents; Z88.2 Allergy status to sulfonamides; Z82.49 Family history of ischemic heart disease and other diseases of the circulatory system; Z80.49 Family history of malignant neoplasm of other genital organs; Z90.722 Acquired absence of ovaries, bilateral; Z68.34 Body mass index [BMI] 34.0-34.9, adult; Z79.01 Long term (current) use of anticoagulants; Z79.4 Long term (current) use of insulin
CPT/HCPCS: 36415; 71010; 78452; 80048; 80162; 81003; 81015; 83036; 83735; 84145; 84443; 84484; 85025; 85027; 85610; 87040; 87070; 87086; 87106; 87205; 87502; 87899; 93005; 93017; 94640; 94760; A9270-GY; A9502; J0280; J0282; J0456; J0696; J1160; J1650; J2250; J2310; J2785; J3010; J3475; J7512; J7644

== ENCOUNTER 2019-06-01 14:02 | Inpatient (IN) | payer BC, MEDICARE ==
[2019-06-01] MEDS ORDERED: Diltiazem IV BAG* D5W Premix 125 MG/125 ML BAG IV ONE (14:44)
--- NOTE | 2019-06-01 14:46 | ED ---
HPI Cardiac - HPI Summary HPI Summary: Patient is an 83 y/o F presenting to [facility] for evaluation of afib with RVR. The patient had awoken around 0600 this morning with chest pressure and rapid heart rate. She went to [facility] and was found to be in afib with RVR on EKG. The patient had received ASA, nitro, duoneb, Lasix, heparin drip and cardizem 25 mg. CTA chest/thorax was negative for PE and aortic dissection. Patient was transferred to [facility] for further workup. Fever, cough, vomiting are denied. Patient does note that she has some epigastric pain/ pressure and attributes this pain to hiatal hernia. Home medications and allergies are reviewed. - History of Current Complaint Stated Complaint: SOB, AFIB PER EMS Time Seen by Provider: 06/01/19 14:10 Hx Obtained From: Patient Onset/Duration: Still Present Timing: Constant Current Severity: Severe Pain Intensity: 7 Pain Scale Used: 0-10 Numeric Character: Fast, Pressure/Squeezing Associated Signs and Symptoms: Positive: Chest Pain, Palpitations, Abdominal Pain. Negative: Fever, Cough, Productive Cough, Nonproductive Cough, Vomiting - Additional Pertinent History Primary Care Physician: [id number] - Allergy/Home Medications Allergies/Adverse Reactions: Allergies Allergy/AdvReac Type Severity Reaction Status Date / Time ciprofloxacin [From Cipro] Allergy GI Upset Verified 06/01/19 14:34 ondansetron Allergy Hives Verified 06/01/19 17:25 Sulfa (Sulfonamide Allergy Rash Verified 06/01/19 14:34 Antibiotics) Home Medications: Home Medications metFORMIN* [Glucophage 1000 MG TAB *] 500 mg PO BID 11/17/16 [History Confirmed 06/01/19] Amiodarone TAB* [Cordarone Tab*] 100 mg PO DAILY 06/01/19 [History Confirmed 05/17] Empagliflozin (NF) [Jardiance] 25 mg PO DAILY 06/01/19 [History Confirmed ] Fluticasone HFA 44 mcg(NF) [Flovent Hfa 44 mcg(NF)] 2 puff INH BID 06/01/19 [ History Confirmed 06/01/19] Hydrochlorothiazide TAB* [Hydrodiuril TAB*] 12.5 mg PO DAILY 06/01/19 [History Confirmed 06/01/19] Levothyroxine TAB* [Synthroid TAB*] 112 mcg PO QAM 06/01/19 [History Confirmed 06/01/19] Lisinopril TAB* [Prinivil TAB 5 MG*] 30 mg PO DAILY 06/01/19 [History Confirmed 06/01/19] Warfarin TAB(*) [Coumadin TAB(*)] 3 mg PO DAILY 06/01/19 [History Confirmed 05/17] PMH/Surg Hx/FS Hx/Imm Hx Endocrine/Hematology History: Reports: Hx Diabetes Cardiovascular History: Reports: Hx Congestive Heart Failure, Hx Hypercholesterolemia, Hx Hypertension Denies: Hx Coronary Artery Disease, Hx Myocardial Infarction, Hx Valvular Heart Disease Respiratory History: Reports: Hx Asthma - just alittle bit several yrs ago per pt Denies: Hx Chronic Obstructive Pulmonary Disease (COPD) GI History: Reports: Other GI Disorders - Trauma, multiple surgeries Sensory History: Reports: Hx Contacts or Glasses Denies: Hx Hearing Aid Opthamlomology History: Reports: Hx Contacts or Glasses - Cancer History Cancer Type, Location and Year: uterine, melanoma - Surgical History Surgery Procedure, Year, and Place: Abd surg. Infectious Disease History: No Infectious Disease History: Denies: Traveled Outside the [place] in Last 30 Days - Family History Known Family History: Positive: Cardiac Disease - Social History Alcohol Use: None Substance Use Type: Reports: None Smoking Status (MU): Never Smoked Tobacco Have You Smoked in the Last Year: No Review of Systems Negative: Fever Positive: Chest Pain Negative: Cough Positive: Abdominal Pain. Negative: Vomiting All Other Systems Reviewed And Are Negative: Yes Physical Exam - Summary Physical Exam Summary: Constitutional: Well-developed, Well-nourished, Alert. (-) Distressed Skin: Warm, Dry; patient has slight erythema of the RLE that is characterized as chronic by the patient HENT: Normocephalic; Atraumatic Eyes: Conjunctiva normal Neck: Musculoskeletal ROM normal neck. (-) JVD, (-) Stridor, (-) Tracheal deviation Cardio: Tachycardic with an irregular rhythm, Heart sounds normal; Intact distal pulses; The pedal pulses are 2+ and symmetric. Radial pulses are 2+ and symmetric. (-) Murmur Pulmonary/Chest wall: Effort normal. (-) Respiratory distress, (-) Wheezes, (-) Rales Abd: Soft, Epigastric tenderness is noted. (-) Distension, (-) Guarding, (-) Rebound Musculoskeletal: Mild BLE edema noted Lymph: (-) Cervical adenopathy Neuro: Alert, Oriented x3 Psych: Mood and affect Normal Triage Information Reviewed: Yes Vital Signs On Initial Exam: Initial Vitals Temp Pulse Resp BP Pulse Ox 97.9 F 102 24 125/87 96 06/01/19 14:15 06/01/19 14:15 06/01/19 14:15 06/01/19 14:15 06/01/19 14:15 Vital Signs Reviewed: Yes Procedures - Sedation Patient Received Moderate/Deep Sedation with Procedure: No Diagnostics - Vital Signs Vital Signs Temp Pulse Resp BP Pulse Ox 06/01/19 14:15 97.9 F 109 27 125/87 96 - Laboratory Result Diagrams: 06/02/19 05:35 06/02/19 05:35 Lab Statement: Any lab studies that have been ordered have been reviewed, and results considered in the medical decision making process. - Radiology CXR Radiology Interpretation Completed By: Radiologist Summary of Radiographic Findings: IMPRESSION: In the correct clinical setting chest x-ray findings could be compatible with. mild pulmonary edema and/or pulmonary vascular congestion. THIS REPORT WAS REVIEWED BY ED PHYSICIAN. - EKG 1452 Cardiac Rate: Other Rate - afib with rate of 110 BPM EKG Rhythm: Atrial Fibrillation Summary of EKG Findings: EKG showed afib with rate of 110 BPM, T-wave inversion in V5-V6. ED physician has reviewed and interpreted this EKG. Disposition - Course Course Of Treatment: Patient is an 83 y/o F presenting to [facility] for evaluation of afib with RVR. The patient had awoken around 0600 this morning with chest pressure and rapid heart rate. She went to [facility] and was found to be in afib with RVR on EKG. The patient had received ASA, nitro, duoneb, Lasix, heparin drip and cardizem 25 mg. CTA chest/thorax was negative for PE and aortic dissection. Patient was transferred to [facility] for further workup. Fever, cough, vomiting are denied. Patient does note that she has some epigastric pain/pressure and attributes this pain to hiatal hernia. On physical exam, patient is noted to be tachycardic with an irregular rhythm. Epigastric tenderness is noted. Mild BLE edema noted, patient has slight erythema of the RLE that is characterized as chronic by the patient. EKG showed afib with rate of 110 BPM, T-wave inversion in V5-V6. CXR IMPRESSION: In the correct clinical setting chest x-ray findings could be compatible with. mild pulmonary edema and/or pulmonary vascular congestion. Bloodwork was obtained, abnormal values include trop of 1.13, magnesium 1.8, glucose 150, anion gap 14, APTT 78.6, INR 3.08, RDW 16. During ED course, patient received Diltiazem 5 mg IV. Patients case was discussed with Dr. Stephens, Dr. Stephens accepts for admission. - Diagnoses Provider Diagnoses: Atrial fibrillation with RVR, Chest pain, Elevated troponin, Elevated brain natriuretic peptide (BNP) level - Physician Notifications Discussed Care Of Patient With: Martha Stephens Time Discussed With Above Provider: 14:38 Instructed by Provider To: Other - Patients case was discussed with Dr. Stephens , Dr. Stephens accepts for admission. Discharge ED - Sign-Out/Discharge Documenting (check all that apply): Patient Departure - admit - Discharge Plan Condition: Fair Disposition: ADMITTED TO [facility] - Billing Disposition and Condition Condition: FAIR Disposition: Admitted to [facility] - Attestation Statements Document Initiated by Libby: Yes Documenting Scribe: SENDY LANGSTON Provider For Whom Libby is Documenting (Include Credential): YOBANI KELLY DO [employer]ma[employer]ick Attestation: SENDY Garcia scribed for YOBANI KELLY DO on 06/02/19 at 1211. Scribe Documentation Reviewed: Yes Provider Attestation: The documentation as recorded by the SENDY bergman accurately reflects the service I personally performed and the decisions made by , YOBANI KELLY DO Status of Scribmaverick Document: Viewed
[2019-06-01] MEDS ORDERED: Diltiazem IV push/loading dose 5 MG/ML 5 ML vial (25 mg) IV SLOW PU ONE (15:20)
[2019-06-01 15:29] LABS: ABS Eosinophils 0.1 10^3/ul (0-0.6); ABS Monocytes 0.8 10^3/ul (0-0.8); ABS Neutrophils 7.7 10^3/ul (1.5-7.7); Hematocrit 39 % (35-47); Lymphocyte % 10.3 %; Mean Corpuscular HGB Conc 33 g/dL (31-36); Mean Corpuscular Hemoglobin 30 pg (27-31); Mean Corpuscular Volume 90 fL (80-97); Mean Platelet Volume 7.6 fL (7.4-10.4); Nucleated Red Blood Cells % 0.1; Platelet Count 312 10^3/uL (150-450); Red Blood Count 4.37 10^6 /uL (3.70-4.87); Red Cell Distribution Width 16 % (10-15); White Blood Count 9.7 10^3/uL (3.5-10.8)
[2019-06-01 15:45] LABS: Albumin 3.5 g/dL (3.2-5.2); Anion Gap 14 mmol/L (2-11); CO2 Carbon Dioxide 22 mmol/L (22-32); Calcium 9.1 mg/dL (8.6-10.3); Chloride 102 mmol/L (101-111); Magnesium 1.8 mg/dL (1.9-2.7); Potassium 4.1 mmol/L (3.5-5.0); Sodium 138 mmol/L (135-145)
[2019-06-01 15:47] LABS: Activated Partial Thrombo Time 78.6 seconds (26.0-38.0); INR 3.08 (0.82-1.09)
[2019-06-01 15:50] LABS: Troponin I 1.13 ng/mL (<0.03)
[2019-06-01 15:51] LABS: ALT 12 U/L (7-52); AST 13 U/L (13-39); Albumin/Globulin Ratio 1.2 (1-3); Alkaline Phosphatase 59 U/L (34-104); BUN/Creatinine Ratio 19.6 (8-20); Blood Urea Nitrogen 18 mg/dL (6-24); EGFR African American 70.9 (>60); EGFR Non-African American 58.6 (>60); Globulin 2.9 g/dL (2-4); Glucose 150 mg/dL (70-100); Total Protein 6.4 g/dL (6.4-8.9)
[2019-06-01] MEDS ORDERED: Heparin DRIP 25,000 UNITS(*) 25,000 UNITS/500 ML BAG IV SCH (16:15)
[2019-06-01] MEDS ORDERED: Acetaminophen TAB* 325 MG PO PRN (16:28)
[2019-06-01] MEDS ORDERED: Furosemide IV* 10 MG/ML VIAL (40 MG) IV SLOW PU ONE (16:31)
[2019-06-01] MEDS ORDERED: Metoprolol Tartrate IV* 1 MG/ML 5 ML VIAL IV ONE (16:54)
[2019-06-01] MEDS ORDERED: Nitro Patch/OINT Remove TOPICAL SCH ×2 (17:00)
[2019-06-01] MEDS ORDERED: Diltiazem IV BAG* D5W Premix 125 MG/125 ML BAG IV SCH (17:00)
[2019-06-01] MEDS ORDERED: Heparin VIAL(*) 5000 UNITS/ML VIAL (FIVE THOUSAND) IV SCH (17:00)
[2019-06-01] MEDS ORDERED: Nitroglycerin 0.1 mg/Hr PATCH* (2.5 MG) TRANSDERM ONE (17:01)
[2019-06-01] MEDS ORDERED: Nitroglycerin 0.2 MG/HR PATCH* (5 MG) TRANSDERM ONE ×2 (17:03)
[2019-06-01] MEDS ORDERED: Digoxin IV* 0.5 MG/2 ML AMP (0.25 MG/ML) IV SLOW PU ONE ×2 (17:14→21:27)
[2019-06-01] MEDS ORDERED: Dextrose 50% Syringe 50 ML* 25 GM/50 ML SYRINGE IV PUSH PRN (17:38)
[2019-06-01] MEDS ORDERED: Magnesium Oxide TAB* 400 MG PO ONE (17:51)
[2019-06-01] MEDS ORDERED: Metoprolol Tartrate IV* 1 MG/ML 5 ML VIAL IV PRN (17:58)
[2019-06-01] MEDS ORDERED: Amiodarone TAB* 200 MG PO SCH (18:00)
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
[2019-06-01 19:01] LABS: Troponin I 1.34 ng/mL (<0.03)
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
[2019-06-01] MEDS: Amiodarone TAB* 200 MG PO SCH (20:54)
[2019-06-01] MEDS: Atorvastatin* 20 MG TAB PO SCH (20:56)
[2019-06-02] MEDS ORDERED: Furosemide IV* 10 MG/ML 2 ML VIAL (20 MG) IV SLOW PU ONE (03:56)
[2019-06-02] MEDS ORDERED: Furosemide IV* 10 MG/ML 2 ML VIAL (20 MG) ONE (03:57)
--- NOTE | 2019-06-02 04:06 | PN ---
Hospitalist Progress Note Date of Service: 06/02/19 Called for shortness of breath. Patient c/o extreme shortness of breath and chest pain after ambulating to the bathroom unable to catch her breath. Patient was seen and evaluated at the bedside. Patient noted to be tachypneic with respiratory rate of 30, HR 100-110 afib on the monitor, and BP 148/95. Lung sounds are diminished with expiratory wheeze. Suspect the patient has flash pulmonary edema and intolerance of her elevated heart rate. Will give 5 mg IV metoprolol and lasix 20 mg IV x1 now. Place on strict I/O's and daily weights. 0500- patient continues to have shortness of breath, reports that the chest pain is improving. Will change nitro patch to nitro paste. and continue to monitor. 0600- Patient reports that she is feeling better, reports that she is less short of breath. Chest pain is improved.
[2019-06-02] MEDS ORDERED: Nitro 2% OINT* (Nitroglycerin) 1 INCH/PAK PAK TOPICAL ONE (05:15)
[2019-06-02] MEDS: Levothyroxine TAB* 112 MCG TAB PO SCH (05:51)
[2019-06-02] MEDS: Mometasone 220 MCG MDI INH SCH ×2 (06:29→20:15)
[2019-06-02 06:38] LABS: ABS Basophils 0.1 10^3/ul (0-0.2); ABS Eosinophils 0.5 10^3/ul (0-0.6); ABS Lymphocytes 0.9 10^3/ul (1.0-4.8); ABS Monocytes 0.8 10^3/ul (0-0.8); ABS Neutrophils 6.7 10^3/ul (1.5-7.7); Eosinophil % 5.6 %; Hematocrit 38 % (35-47); Hemoglobin 12.6 g/dL (12.0-16.0); Lymphocyte % 10.3 %; Mean Corpuscular HGB Conc 34 g/dL (31-36); Mean Corpuscular Hemoglobin 30 pg (27-31); Mean Corpuscular Volume 90 fL (80-97); Mean Platelet Volume 8.2 fL (7.4-10.4); Platelet Count 321 10^3/uL (150-450); Red Blood Count 4.19 10^6 /uL (3.70-4.87); Red Cell Distribution Width 16 % (10-15)
[2019-06-02 06:50] LABS: INR 4.12 (0.82-1.09)
[2019-06-02 07:01] LABS: Albumin 3.4 g/dL (3.2-5.2); Albumin/Globulin Ratio 1.1 (1-3); BUN/Creatinine Ratio 18.3 (8-20); Calcium 9.1 mg/dL (8.6-10.3); EGFR Non-African American 57.9 (>60); HDL Cholesterol 42.3 mg/dL; Magnesium 1.8 mg/dL (1.9-2.7); Total Bilirubin 0.6 mg/dL (0.2-1.0); Total Protein 6.4 g/dL (6.4-8.9)
[2019-06-02 07:02] LABS: Troponin I 1.01 ng/mL (<0.03)
[2019-06-02] MEDS: Insulin LISPRO* 1 UNITS UNIT SUBCUT SCH ×3 (08:47→16:07)
[2019-06-02] MEDS: Aspirin 81 mg CHEW TAB* 81 MG TAB.CHEW PO SCH (08:48)
[2019-06-02] MEDS: Amiodarone TAB* 200 MG PO SCH ×2 (08:48→23:03)
[2019-06-02] MEDS ORDERED: Lisinopril TAB* 5 MG PO SCH (09:00)
[2019-06-02] MEDS ORDERED: Amiodarone TAB* 200 MG PO SCH (09:00)
[2019-06-02] MEDS ORDERED: Potassium Chloride* LIQUID 20 MEQ/15 ML UDC PO ONE (09:18)
[2019-06-02] MEDS ORDERED: Magnesium Sulfate 2 GM IV* 2 GM/50 ML BAG IVPB ONE (09:18)
[2019-06-02] MEDS ORDERED: Digoxin IV* 0.5 MG/2 ML AMP (0.25 MG/ML) IV SLOW PU ONE ×2 (09:40→17:18)
--- NOTE | 2019-06-02 09:44 | PN ---
Subjective Date of Service: 06/02/19 Interval History: Pt seen for afib , cp, nstemi. Recurrent CP and dyspnea early this am after walking to bathroom associated with increased HR. Hr's otherwise 90-100. Troponins were decreasing prior to this episode. no orthopnea, cough, now. Medications Active Medications: Acetaminophen (Tylenol Tab*) 650 mg PO Q4H PRN PRN Reason: MILD PAIN or TEMP > 100.4 Al Hydrox/Mg Hydrox/Simethicone (Maalox Plus*) 30 ml PO Q6H PRN PRN Reason: INDIGESTION Amiodarone HCl (Cordarone Tab*) 100 mg PO 0900,2100 [facility] Last Admin: 06/02/19 08:48 Dose: 100 mg Aspirin (Aspirin 81 Mg Chew Tab*) 81 mg PO DAILY [facility] Last Admin: 06/02/19 08:48 Dose: 81 mg Atorvastatin Calcium (Lipitor*) 20 mg PO 2100 [facility] Last Admin: 06/01/19 20:56 Dose: Not Given Dextrose (D50w Syringe 50 Ml*) 12.5 gm IV PUSH .FOR FS < 60 - SS PRN PRN Reason: FS < 60 Digoxin (Digoxin Iv*) 0.125 mg IV SLOW PU ONCE ONE Stop: 06/02/19 09:41 Heparin Sodium (Porcine) (Heparin Vial(*)) 0 units IV .FOR HEPARIN BOLUSES [facility] Heparin Sodium/Dextrose (Heparin Drip 25,000 Units(*)) 25,000 units in 500 mls @ 0 mls/hr IV PER RATE [facility]; Protocol Magnesium Sulfate (Magnesium Sulfate 2 Gm Iv*) 2 gm in 50 mls @ 50 mls/hr IVPB ONCE ONE Stop: 06/02/19 10:17 Magnesium Sulfate/Dextrose (Magnesium Sulfate 1 Gm Iv*) 1 gm in 100 mls @ 200 mls/hr IV ONCE ONE Stop: 06/02/19 09:49 Insulin Human Lispro (Humalog*) 0 units SUBCUT [facility]; Protocol Last Admin: 06/02/19 08:47 Dose: 2 units Levothyroxine Sodium (Synthroid Tab*) 112 mcg PO QAM@0600 [facility] Last Admin: 06/02/19 05:51 Dose: 112 mcg Metoprolol Tartrate (Lopressor Tab*) 25 mg PO BID [facility] Mometasone Furoate (Asmanex 220 Mcg Mdi *) 1 puff INH QPM [facility] Last Admin: 06/02/19 06:29 Dose: Not Given Nitroglycerin (Nitroglycerin 2% Oint*) 0.5 inch TOPICAL 0600,1200 [facility]; Protocol Pharmacy Profile Note (Nitro Patch/Oint Remove*) 1 note TOPICAL ONCE ONE Stop: 06/02/19 11:16 Potassium Chloride (Potassium Chloride Liquid) 40 meq PO ONCE ONE Stop: 06/02/19 09:19 Senna (Senokot 8.6 Mg Tab*) 1 tab PO BID PRN PRN Reason: CONSTIPATION Objective Vital Signs: Temp Pulse Resp BP Pulse Ox 97.7 F 90 20 126/72 99 06/02/19 07:15 06/02/19 07:15 06/02/19 07:15 06/02/19 07:15 06/02/19 07:15 Oxygen Devices in Use Now: None, Nasal Cannula Appearance: wd wn mild dyspnea Eyes: No Scleral Icterus Neck: - - no definite JVD Respiratory: - - soft rales mid right posterior lung field. Cardiovascular: RRR - s1 s2 irregular Extremities: No Edema - 1 + left, trace right lower ext Neurological: Alert and Oriented x 3 Laboratory Results: 06/02/19 05:35 06/02/19 05:35 INR (Anticoag Therapy) 4.12 (0.82-1.09) H 06/02/19 05:35 APTT 89.1 seconds (26.0-38.0) H 06/02/19 08:08 Total Bilirubin 0.60 mg/dL (0.2-1.0) 06/02/19 05:35 AST 13 U/L (13-39) 06/02/19 05:35 ALT 11 U/L (7-52) 06/02/19 05:35 Alkaline Phosphatase 56 U/L (34-104) 06/02/19 05:35 B-Natriuretic Peptide 957 pg/mL (<=100) H 06/01/19 15:17 Total Protein 6.4 g/dL (6.4-8.9) 06/02/19 05:35 Albumin 3.4 g/dL (3.2-5.2) 06/02/19 05:35 Globulin 3.0 g/dL (2-4) 06/02/19 05:35 Albumin/Globulin Ratio 1.1 (1-3) 06/02/19 05:35 Triglycerides 130 mg/dL 06/02/19 05:35 Cholesterol 220 mg/dL 06/02/19 05:35 LDL Cholesterol 152 mg/dL 06/02/19 05:35 HDL Cholesterol 42.3 mg/dL 06/02/19 05:35 TSH 1.50 mcIU/mL (0.34-5.60) 06/01/19 15:17 06/01/19 06/01/19 06/01/19 15:17 18:31 21:28 Troponin I 1.13 H* 1.34 H* 1.10 H* 06/02/19 05:35 Troponin I 1.01 H* EKG Data: afib LBBB Assessment/Plan afib: continue rate control with metoprolol and dig as tolerated IV heparin hold coumadin pending possible cath.\ Replace mag and maintain k over 4 NSTEMI NSTEMI in the setting of increased hr in afib. ?demand vs acute coronary syndrome Given progressive fatigue and berger over many months and risk factors, Significanc CAD is a consideration Plan rate control nitrates. serial troponins consider cath this admission watch for correction of inr off coumadin Points of Discussion: 25+ minutes with patient and coordinating care.
[2019-06-02] MEDS: Metoprolol Tartrate TAB* 25 MG PO SCH ×2 (10:25→23:03)
[2019-06-02] MEDS: Magnesium Sulfate 1 GM IV* 1 GM/100 ML BAG IV ONE ×2 (10:33→10:36)
[2019-06-02] MEDS ORDERED: Phytonadione Oral Solution* 5 MG/25 ML UDC PO ONE (11:00)
[2019-06-02] MEDS ORDERED: Nitro Patch/OINT Remove TOPICAL ONE (11:15)
[2019-06-02] MEDS: Nitro 2% OINT* (Nitroglycerin) 1 INCH/PAK PAK TOPICAL SCH (12:04)
[2019-06-02 13:41] LABS: BUN/Creatinine Ratio 16.2 (8-20); Calcium 8.9 mg/dL (8.6-10.3); EGFR African American 65.1 (>60); EGFR Non-African American 53.8 (>60); Magnesium 2.5 mg/dL (1.9-2.7); Potassium 4.3 mmol/L (3.5-5.0)
[2019-06-02 13:51] LABS: Troponin I 0.86 ng/mL (<0.03)
[2019-06-02] MEDS ORDERED: Furosemide IV* 10 MG/ML VIAL (40 MG) IV ONE (15:49)
[2019-06-02] MEDS ORDERED: Potassium Chlor TAB* 20 MEQ TAB.ER PO ONE (15:50)
--- NOTE | 2019-06-02 15:58 | PN ---
Subjective Date of Service: 06/02/19 Interval History: Pt still c/o SOB, although better on 0-2 supplementation Denies CP Objective Active Medications: Acetaminophen (Tylenol Tab*) 650 mg PO Q4H PRN PRN Reason: MILD PAIN or TEMP > 100.4 Al Hydrox/Mg Hydrox/Simethicone (Maalox Plus*) 30 ml PO Q6H PRN PRN Reason: INDIGESTION Amiodarone HCl (Cordarone Tab*) 100 mg PO 0900,2100 [facility] Last Admin: 06/02/19 08:48 Dose: 100 mg Aspirin (Aspirin 81 Mg Chew Tab*) 81 mg PO DAILY [facility] Last Admin: 06/02/19 08:48 Dose: 81 mg Atorvastatin Calcium (Lipitor*) 20 mg PO 2099 [facility] Last Admin: 06/01/19 20:56 Dose: Not Given Dextrose (D50w Syringe 50 Ml*) 12.5 gm IV PUSH .FOR FS < 60 - SS PRN PRN Reason: FS < 60 Furosemide (Lasix Iv*) 40 mg IV ONCE ONE Stop: 06/02/19 15:50 Heparin Sodium (Porcine) (Heparin Vial(*)) 0 units IV .FOR HEPARIN BOLUSES [facility] Insulin Human Lispro (Humalog*) 0 units SUBCUT [facility]; Protocol Last Admin: 06/02/19 12:00 Dose: 2 units Levothyroxine Sodium (Synthroid Tab*) 112 mcg PO QAM@0600 [facility] Last Admin: 06/02/19 05:51 Dose: 112 mcg Metoprolol Tartrate (Lopressor Tab*) 25 mg PO BID [facility] Last Admin: 06/02/19 10:25 Dose: 25 mg Mometasone Furoate (Asmanex 220 Mcg Mdi *) 1 puff INH QPM [facility] Last Admin: 06/02/19 06:29 Dose: Not Given Nitroglycerin (Nitroglycerin 2% Oint*) 0.5 inch TOPICAL 0600,1200 [facility]; Protocol Last Admin: 06/02/19 12:04 Dose: 0.5 inch Pharmacy Profile Note (Nitro Patch/Oint Remove*) 1 note TOPICAL 1800 [facility] Potassium Chloride (Klor Con Er Tab*) 20 meq PO ONCE ONE Stop: 06/02/19 15:51 Senna (Senokot 8.6 Mg Tab*) 1 tab PO BID PRN PRN Reason: CONSTIPATION Vital Signs - 8 hr 06/02/19 06/02/19 06/02/19 08:00 10:17 10:26 Temperature Pulse Rate 100 100 Respiratory 20 Rate Blood Pressure 130/72 (mmHg) O2 Sat by Pulse Oximetry 06/02/19 06/02/19 11:35 15:10 Temperature 97.8 F 97.9 F Pulse Rate 89 85 Respiratory 22 20 Rate Blood Pressure 113/67 122/71 (mmHg) O2 Sat by Pulse 98 99 Oximetry Oxygen Devices in Use Now: None, Nasal Cannula Appearance: 83 yo F in NAD, AAOx3 Eyes: No Scleral Icterus, PERRLA Ears/Nose/Mouth/Throat: NL Teeth, Lips, Gums, Mucous Membranes Moist Neck: NL Appearance and Movements; NL JVP, Trachea Midline Respiratory: Symmetrical Chest Expansion and Respiratory Effort, - - rales b/l lower to mid lungs Cardiovascular: - - irregular Abdominal: NL Sounds; No Tenderness; No Distention, No Hepatosplenomegaly Lymphatic: No Cervical Adenopathy Extremities: No Clubbing, Cyanosis, - - trace pedal edema b/l Skin: No Rash or Ulcers, No Nodules or Sclerosis Neurological: Alert and Oriented x 3, NL Muscle Strength and Tone Result Diagrams: 06/02/19 05:35 06/02/19 13:14 Assess/Plan/Problems-Billing Assessment: Ms Burdick is a 80 yo F with a hx of AFib on Coumadin, HTN, HLD, DM, GERD who presented initially to [place] ER with c/o SOB and in a. fib Pt has h/o PAF - Patient Problems (1) Afib Comment: The patient was cardioverted in 2017 and [address] Hernandez's note cont amiodarone, digoxin (2) Cardiomyopathy Comment: h/o EF 45-50% on echocardiogram here 2017. Echo ordered Now with acute systolic CHF, will add another dose of Lasix IV (3) Diabetes Comment: cont ISS (4) NSTEMI (non-ST elevated myocardial infarction) Comment: troponin peaked at 1.34 due to NSTEMI Cardiology following Heparin gtt stopped due to supratherapuetic INR, will recheck it this PM, may be able to restart heparin gtt if INR closer to 2 cont ASA, statin (5) DVT prophylaxis Comment: Coumadin, INR 4. as per d/w Dr. Hernandez will tx with Vit K 5 mg dose Status and Disposition: inpatient
[2019-06-02 17:33] LABS: INR 3.36 (0.82-1.09)
[2019-06-02] MEDS ORDERED: Nitro Patch/OINT Remove TOPICAL SCH (18:00)
[2019-06-02] MEDS: Atorvastatin* 20 MG TAB PO SCH (23:02)
[2019-06-03] MEDS ORDERED: Furosemide IV* 10 MG/ML 2 ML VIAL (20 MG) IV SLOW PU ONE (01:17)
[2019-06-03] MEDS ORDERED: Nitro 2% OINT* (Nitroglycerin) 1 INCH/PAK PAK TOPICAL ONE (01:19)
[2019-06-03 06:03] LABS: ABS Basophils 0.1 10^3/ul (0-0.2); ABS Eosinophils 0.6 10^3/ul (0-0.6); ABS Lymphocytes 0.9 10^3/ul (1.0-4.8); ABS Monocytes 0.8 10^3/ul (0-0.8); ABS Neutrophils 5.6 10^3/ul (1.5-7.7); Eosinophil % 7.2 %; Hematocrit 39 % (35-47); Hemoglobin 12.7 g/dL (12.0-16.0); Lymphocyte % 11.2 %; Mean Corpuscular HGB Conc 33 g/dL (31-36); Mean Corpuscular Hemoglobin 30 pg (27-31); Mean Corpuscular Volume 90 fL (80-97); Mean Platelet Volume 7.7 fL (7.4-10.4); Nucleated Red Blood Cells % 0.1; Platelet Count 316 10^3/uL (150-450); Red Cell Distribution Width 16 % (10-15)
[2019-06-03 06:07] LABS: INR 1.6 (0.82-1.09)
[2019-06-03 06:18] LABS: BUN/Creatinine Ratio 14.4 (8-20); Calcium 8.9 mg/dL (8.6-10.3); EGFR African American 66.7 (>60); EGFR Non-African American 55.1 (>60); Potassium 4.1 mmol/L (3.5-5.0)
[2019-06-03] MEDS: Levothyroxine TAB* 112 MCG TAB PO SCH (06:37)
[2019-06-03] MEDS: Nitro 2% OINT* (Nitroglycerin) 1 INCH/PAK PAK TOPICAL SCH ×2 (06:37→12:57)
--- NOTE | 2019-06-03 07:08 | PN ---
Hospitalist Progress Note Date of Service: 06/03/19 Overnight Cross Cover Note Pt with tachypnea overnight and cardiac wheeze, responded to nitro paste and lasix
[2019-06-03] MEDS: Insulin LISPRO* 1 UNITS UNIT SUBCUT SCH ×3 (08:19→17:16)
[2019-06-03] MEDS: Metoprolol Tartrate TAB* 25 MG PO SCH ×2 (08:21→22:50)
[2019-06-03] MEDS: Amiodarone TAB* 200 MG PO SCH ×2 (08:22→22:51)
[2019-06-03] MEDS: Aspirin 81 mg CHEW TAB* 81 MG TAB.CHEW PO SCH (08:23)
--- NOTE | 2019-06-03 09:13 | PN ---
Subjective Date of Service: 06/03/19 - afib, chf nstemi Interval History: Pt seen for afib , cp, nstemi. No CP overnight. Rates 90-100 for the most part. Dyspnea improved c/t yesterday but has been limited to using bedside commode rather than walking to bathroom which was associated with increased HR/ cp yesterday. Troponins were decreasing. No orthopnea. Had tickle and cough last pm but no cp. Reports lower ext edeman and tenderness has improved. Medications Active Medications: Acetaminophen (Tylenol Tab*) 650 mg PO Q4H PRN PRN Reason: MILD PAIN or TEMP > 100.4 Al Hydrox/Mg Hydrox/Simethicone (Maalox Plus*) 30 ml PO Q6H PRN PRN Reason: INDIGESTION Amiodarone HCl (Cordarone Tab*) 100 mg PO 0900,2100 [facility] Last Admin: 06/03/19 08:22 Dose: 100 mg Aspirin (Aspirin 81 Mg Chew Tab*) 81 mg PO DAILY [facility] Last Admin: 06/03/19 08:23 Dose: 81 mg Atorvastatin Calcium (Lipitor*) 20 mg PO 2100 [facility] Last Admin: 06/02/19 23:02 Dose: Not Given Dextrose (D50w Syringe 50 Ml*) 12.5 gm IV PUSH .FOR FS < 60 - SS PRN PRN Reason: FS < 60 Furosemide (Lasix Iv*) 40 mg IV 0800,1700 [facility] Heparin Sodium (Porcine) (Heparin Vial(*)) 0 units IV .FOR HEPARIN BOLUSES [facility] Insulin Human Lispro (Humalog*) 0 units SUBCUT [facility]; Protocol Last Admin: 06/03/19 08:19 Dose: 2 units Levothyroxine Sodium (Synthroid Tab*) 112 mcg PO QAM@0600 [facility] Last Admin: 06/03/19 06:37 Dose: 112 mcg Metoprolol Tartrate (Lopressor Tab*) 25 mg PO BID [facility] Last Admin: 06/03/19 08:21 Dose: 25 mg Mometasone Furoate (Asmanex 220 Mcg Mdi *) 1 puff INH QPM [facility] Last Admin: 06/02/19 20:15 Dose: 220 mcg Nitroglycerin (Nitroglycerin 2% Oint*) 0.5 inch TOPICAL 0600,1200 [facility]; Protocol Last Admin: 06/03/19 06:37 Dose: 0.5 inch Pharmacy Profile Note (Nitro Patch/Oint Remove*) 1 note TOPICAL 1800 [facility] Last Admin: 06/02/19 17:42 Dose: 1 patch Senna (Senokot 8.6 Mg Tab*) 1 tab PO BID PRN PRN Reason: CONSTIPATION Objective Vital Signs: Temp Pulse Resp BP Pulse Ox 97.6 F 100 20 132/88 99 06/03/19 07:15 06/03/19 07:15 06/03/19 07:52 06/03/19 07:15 06/03/19 07:15 Oxygen Devices in Use Now: Nasal Cannula Appearance: wd wn comfortable Eyes: No Scleral Icterus Neck: - - JVD 6 cm Respiratory: Clear to Auscultation, - - soft rales mid right posterior lung field which clear with coughing Cardiovascular: RRR - s1 s2 irregular Extremities: No Edema - no sig edema on the right ; trace edema left lower ext Neurological: Alert and Oriented x 3 Laboratory Results: 06/03/19 05:17 06/03/19 05:17 INR (Anticoag Therapy) 1.60 (0.82-1.09) H 06/03/19 05:17 APTT 89.1 seconds (26.0-38.0) H 06/02/19 08:08 Total Bilirubin 0.60 mg/dL (0.2-1.0) 06/02/19 05:35 AST 13 U/L (13-39) 06/02/19 05:35 ALT 11 U/L (7-52) 06/02/19 05:35 Alkaline Phosphatase 56 U/L (34-104) 06/02/19 05:35 B-Natriuretic Peptide 957 pg/mL (<=100) H 06/01/19 15:17 Total Protein 6.4 g/dL (6.4-8.9) 06/02/19 05:35 Albumin 3.4 g/dL (3.2-5.2) 06/02/19 05:35 Globulin 3.0 g/dL (2-4) 06/02/19 05:35 Albumin/Globulin Ratio 1.1 (1-3) 06/02/19 05:35 Triglycerides 130 mg/dL 06/02/19 05:35 Cholesterol 220 mg/dL 06/02/19 05:35 LDL Cholesterol 152 mg/dL 06/02/19 05:35 HDL Cholesterol 42.3 mg/dL 06/02/19 05:35 TSH 1.50 mcIU/mL (0.34-5.60) 06/01/19 15:17 06/01/19 06/01/19 06/01/19 15:17 18:31 21:28 Troponin I 1.13 H* 1.34 H* 1.10 H* 06/02/19 06/02/19 05:35 13:14 Troponin I 1.01 H* 0.86 H* EKG Data: afib LBBB Assessment/Plan afib: continue rate control with metoprolol and dig as tolerated will start IV heparin hold coumadin pending possible cath.\ Replace mag and maintain k over 4 Unclear if pt is now in permanent afib. will defer decision on discontinuation of amiodarone vs repeat attempt at cardioversion to her primary instructor dancing Dr. Ibanez. May be candidate for rate control rather than rhythm control NSTEMI NSTEMI in the setting of increased hr in afib. ?demand vs acute coronary syndrome Given progressive fatigue and berger over many months and risk factors, Significant CAD is a consideration Plan rate control nitrates. serial troponins consider cath this admission inr 1.6 off coumadin; will restart IV heparin. Echo pending. Points of Discussion: 25+ minutes with patient and coordinating care.
[2019-06-03] MEDS ORDERED: Metoprolol Tartrate TAB* 25 MG PO ONE (09:26)
[2019-06-03] MEDS ORDERED: Digoxin IV* 0.5 MG/2 ML AMP (0.25 MG/ML) IV SLOW PU ONE (09:36)
[2019-06-03 09:57] LABS: Digoxin 1.4 ng/ml (0.8-2.0)
[2019-06-03 10:06] LABS: Troponin I 0.81 ng/mL (<0.03)
[2019-06-03] MEDS: Enoxaparin(*) 80 MG/0.8 ML SYR SUBCUT SCH ×2 (10:25→21:46)
[2019-06-03] MEDS: Potassium Chloride* LIQUID 20 MEQ/15 ML UDC PO SCH (10:25)
--- NOTE | 2019-06-03 11:23 | ECHO ---
*[facility]* [place] [address] Fax #: [phone] Transthoracic Echocardiogram Patient: Kizzy Burdick : 1935 Study Date: 06/03/2019 Age: 83 Gender: F HR: 70 bpm Height: 67 in /170.2 cm BSA: 2 m^2 Weight: 193.6 lb /88 kg BMI: 30.4 kg/m^2 *Vessel Scrapper: Jacquelin Hernandez [facility] *Referring Physician: * Og Hernandez MD *Reading Physician: * Og Hernandez MD Indications: SOB. Myocardial Infarction (new). History: Atrial fibrillation. Risk factors: Hypertension. Diabetes mellitus. Dyslipidemia. Conclusions Summary: - Left ventricle: Systolic function is mildly reduced. The estimated ejection fraction is 40-45%. The ejection fraction has decreased from 45-50% and the inferior wall motion abnormality is new since the study of October 2016. Hypokinesis of the basalinferior and inferoseptal myocardium. - Regional wall motion abnormality: Dyskinesis of the basal inferoseptal, basal inferior, and apical septal myocardium; hypokinesis of the apical inferior myocardium; moderate hypokinesis of the mid inferoseptal and mid inferior myocardium. - Right atrium: The atrium is mildly to moderately dilated. - Mitral valve: There is mild to moderate regurgitation. - Tricuspid valve: There is mild-moderate regurgitation. Study data: Transthoracic echocardiogram. Procedure: Transthoracic echocardiography was performed. Image quality was fair. Complete 2D, spectral Doppler, and color flow Doppler. Location: Bedside. Patient status: Inpatient. Patient room number: 438. Comparison is made to the study of October 2016. Rhythm: Atrial fibrillation. Findings Left ventricle: The cavity size is normal. Wall thickness is mildly increased. Systolic function is mildly reduced. The estimated ejection fraction is 40-45%. The ejection fraction has decreased from 45-50% and the inferior wall motion abnormality is new since the study of October 2016. Regional wall motion abnormalities: Hypokinesis of the basalinferior and inferoseptal myocardium. Dyskinesis of the basal inferoseptal, basal inferior, and apical septal myocardium; hypokinesis of the apical inferior myocardium; moderate hypokinesis of the mid inferoseptal and mid inferior myocardium. Left ventricular diastolic function parameters are indeterminate. Right ventricle: The cavity size is normal. Wall thickness is at the upper limits of normal. Systolic function is normal. Left atrium: The atrium is moderately dilated. Right atrium: The atrium is mildly to moderately dilated. Mitral valve: The Mitral valve annulus appears mild to moderately calcified. The leaflets are mildly thickened. There is no evidence of stenosis. There is mild to moderate regurgitation. Aortic valve: The annulus is mildly calcified. The valve is trileaflet. The leaflets are normal thickness. There is no evidence of stenosis. There is no significant regurgitation. Tricuspid valve: The leaflets are normal thickness. There is mild-moderate regurgitation. Pulmonic valve: Not well visualized. There is trace to mild regurgitation. Aorta: The aortic root appears normal. The aortic arch appears normal. Pericardium: There is no significant pericardial effusion. Pulmonary arteries: Systolic pressure is within the normal range. Systemic veins: Inferior vena cava: The vessel is normal in size. There is (>= 50%) respiratory change in the IVC dimension. Measurements Left ventricle Value Ref Aortic valve Value Ref DIMITRIOS, LAX 4.2 cm 3.8 - Raffaele diam, ED 2.2 cm ------- 5.2 Peak v, S 1.5 m/sec ------- ESD, LAX 3.1 cm 2.2 - Peak grad, S 9.0 mm Hg ------- 3.5 FS, LAX (L) 26 % 27 - 45 Mitral valve Value Ref PW, ED, LAX (H) 1.1 cm 0.6 - Peak E 0.93 m/sec ------- 0.9 Decel time 180 ms ------- E', lat raffaele, TDI (L) 8.3 cm/sec >=10.0 Peak grad, D 3.4 mm Hg ------- E/e', lat raffaele, TDI 11 -------- E', med raffaele, TDI (L) 6.1 cm/sec >=7.0 Pulmonic valve Value Ref E/e', med raffaele, TDI 15 -------- Peak v, S 0.7 m/sec --- ---- E', avg, TDI 7.2 cm/sec -------- Peak grad, S 2.0 mm Hg --- ---- E/e', avg, TDI 13 <=14 Tricuspid valve Value Ref LVOT Value Ref TR peak v 2.5 m/sec <=2.8 Peak niurka, S 0.8 m/sec -------- Peak RV-RA grad, S 25 mm Hg ------- Peak grad, S 3 mm Hg -------- Aortic root Value Ref Ventricular septum Value Ref Root diam 3.0 cm <4.1 IVS, ED (H) 1.1 cm 0.6 - Root max diam/bsa, 1.5 cm/m^2 1.4 - 0.9 ED 2.2 Right ventricle Value Ref Ascending aorta Value Ref AW thickness, ED 0.4 cm 0.1 - AAo AP diam, S 3.0 cm ------- 0.5 AAo AP diam/bsa, S 1.5 cm/m^2 ------- DIMITRIOS, LAX 2.2 cm -------- DIMITRIOS minor ax, A4C (L) 1.6 cm 1.9 - Decending aorta Value Ref mid 3.5 Shey peak niurka 0.33 m/sec ------- Pressure, S 28 mm Hg -------- Pulmonary artery Value Ref Left atrium Value Ref Pressure, S 26.0 mm Hg ------- ML dim, A4C 4.7 cm -------- SI dim, A4C 6.5 cm -------- Inferior vena cava Value Ref Vol/bsa, ES, A/L (H) 46 ml/m^2 16 - 34 Diam 1.8 cm ------- Right atrium Value Ref SI dim, ES (H) 5.5 cm 3.4 - 5.3 ML dim, ES, A4C 4.2 cm 2.6 - 4.4 Estimated RAP 3 mm Hg -------- Legend: (L) and (H) stefano values outside specified reference range. Prepared and electronically signed by Og Hernandez MD 06/03/2019 11:22
[2019-06-03] MEDS ORDERED: NS 0.9% 500 ML* 200 ML IV ONE (13:06)
--- NOTE | 2019-06-03 13:27 | PN ---
Subjective Date of Service: 06/03/19 Interval History: Pt had another episode of PND that resolved after Nitro and Lasix tx. Today feels much better Objective Active Medications: Acetaminophen (Tylenol Tab*) 650 mg PO Q4H PRN PRN Reason: MILD PAIN or TEMP > 100.4 Al Hydrox/Mg Hydrox/Simethicone (Maalox Plus*) 30 ml PO Q6H PRN PRN Reason: INDIGESTION Amiodarone HCl (Cordarone Tab*) 100 mg PO 0900,2099 [facility] Last Admin: 06/03/19 08:22 Dose: 100 mg Aspirin (Aspirin 81 Mg Chew Tab*) 81 mg PO DAILY [facility] Last Admin: 06/03/19 08:23 Dose: 81 mg Atorvastatin Calcium (Lipitor*) 20 mg PO 2099 [facility] Last Admin: 06/02/19 23:02 Dose: Not Given Dextrose (D50w Syringe 50 Ml*) 12.5 gm IV PUSH .FOR FS < 60 - SS PRN PRN Reason: FS < 60 Digoxin (Digoxin Iv*) 0.125 mg IV SLOW PU DAILY [facility] Enoxaparin Sodium (Lovenox(*)) 80 mg SUBCUT Q12H [facility] Stop: 06/03/19 22:01 Last Admin: 06/03/19 10:25 Dose: 80 mg Heparin Sodium (Porcine) (Heparin Vial(*)) 0 units IV .FOR HEPARIN BOLUSES [facility] Sodium Chloride (Ns 0.9% 500 Ml*) 200 mls @ 100 mls/hr IV ONCE ONE Stop: 06/03/19 15:05 Insulin Human Lispro (Humalog*) 0 units SUBCUT [facility]; Protocol Last Admin: 06/03/19 12:17 Dose: 3 units Levothyroxine Sodium (Synthroid Tab*) 112 mcg PO QAM@0600 [facility] Last Admin: 06/03/19 06:37 Dose: 112 mcg Metoprolol Tartrate (Lopressor Tab*) 37.5 mg PO BID [facility] Mometasone Furoate (Asmanex 220 Mcg Mdi *) 1 puff INH QPM [facility] Last Admin: 06/02/19 20:15 Dose: 220 mcg Nitroglycerin (Nitroglycerin 2.5 Mg Patch*) 1 patch TRANSDERM DAILY@0900 [facility] Pharmacy Profile Note (Nitro Patch/Oint Remove*) 1 note PATCH OFF 2100 [facility] Potassium Chloride (Potassium Chloride Liquid) 20 meq PO DAILY [facility] Last Admin: 06/03/19 10:25 Dose: 20 meq Senna (Senokot 8.6 Mg Tab*) 1 tab PO BID PRN PRN Reason: CONSTIPATION Vital Signs - 8 hr 06/03/19 06/03/19 06/03/19 06:35 07:15 07:52 Temperature 97.6 F Pulse Rate 88 100 Respiratory 20 20 Rate Blood Pressure 121/70 132/88 (mmHg) O2 Sat by Pulse 99 Oximetry 06/03/19 06/03/19 10:27 12:45 Temperature Pulse Rate 88 Respiratory Rate Blood Pressure 90/50 (mmHg) O2 Sat by Pulse Oximetry Oxygen Devices in Use Now: Nasal Cannula Appearance: 83 yo F in nAD, aaOx3 Eyes: No Scleral Icterus, PERRLA Ears/Nose/Mouth/Throat: NL Teeth, Lips, Gums, Mucous Membranes Moist Neck: NL Appearance and Movements; NL JVP, Trachea Midline Respiratory: - - crackles at b/l bases-much improved from yesterday Cardiovascular: - - irregular Abdominal: NL Sounds; No Tenderness; No Distention, No Hepatosplenomegaly Lymphatic: No Cervical Adenopathy Extremities: No Clubbing, Cyanosis, - - trace edema b/l ankles Skin: No Rash or Ulcers Neurological: Alert and Oriented x 3, NL Muscle Strength and Tone Result Diagrams: 06/03/19 05:17 06/03/19 05:17 Assess/Plan/Problems-Billing Assessment: Ms Burdick is a 80 yo F with a hx of AFib on Coumadin, HTN, HLD, DM, GERD who presented initially to [place] ER with c/o SOB and in a. fib Pt has h/o PAF - Patient Problems (1) Afib Comment: The patient was cardioverted in 2017 and [address] Hernandez's note cont amiodarone, digoxin continues to be in a. fib, NPO in AM for cath por ccardioversion (2) Cardiomyopathy Comment: Echo 06/03/19 EF 45-50% with wall motion abn Acute systolic CHF resolving, got a dose of Lasix on 06/02/19 night and another dose today in AM, will hold diuresis for now as per d/c Dr. Hernandez (3) Diabetes Comment: cont ISS (4) NSTEMI (non-ST elevated myocardial infarction) Comment: troponin peaked at 1.34 due to NSTEMI Cardiology following Heparin gtt stopped due to supratherapuetic INR, now placed on Lovenox for poss cath in AM cont ASA, statin (5) DVT prophylaxis Comment: Coumadin held at admission INR 1.6 today. as per d/w Dr. David Mathews started Status and Disposition: inpatient
[2019-06-03] MEDS ORDERED: Furosemide IV* 10 MG/ML 10 ML VIAL (100 MG) IV SCH (17:00)
[2019-06-03] MEDS: Mometasone 220 MCG MDI INH SCH (20:58)
[2019-06-03] MEDS ORDERED: Nitro Patch/OINT Remove PATCH OFF SCH (21:00)
[2019-06-03] MEDS: Atorvastatin* 20 MG TAB PO SCH (21:45)
[2019-06-04] MEDS: Al Hydrox/Mg Hydrox/Simet LIQ* 30 ML UDC PO PRN ×2 (02:01→08:31)
[2019-06-04] MEDS: Senna TAB 8.6 mg* TAB PO PRN (04:08)
[2019-06-04] MEDS: Levothyroxine TAB* 112 MCG TAB PO SCH (05:43)
[2019-06-04 05:59] LABS: Hematocrit 39 % (35-47); Hemoglobin 12.8 g/dL (12.0-16.0); Mean Corpuscular HGB Conc 33 g/dL (31-36); Mean Corpuscular Hemoglobin 30 pg (27-31); Mean Corpuscular Volume 92 fL (80-97); Mean Platelet Volume 7.9 fL (7.4-10.4); Platelet Count 309 10^3/uL (150-450); Red Blood Count 4.29 10^6 /uL (3.70-4.87); Red Cell Distribution Width 16 % (10-15); White Blood Count 7.6 10^3/uL (3.5-10.8)
[2019-06-04 06:06] LABS: INR 1.26 (0.82-1.09)
[2019-06-04 06:14] LABS: BUN/Creatinine Ratio 19.2 (8-20); Calcium 8.8 mg/dL (8.6-10.3); EGFR African American 65.1 (>60); EGFR Non-African American 53.8 (>60); Potassium 4.3 mmol/L (3.5-5.0)
[2019-06-04] MEDS: Digoxin IV* 0.5 MG/2 ML AMP (0.25 MG/ML) IV SLOW PU SCH (08:32)
[2019-06-04] MEDS: Amiodarone TAB* 200 MG PO SCH ×2 (08:36→20:37)
[2019-06-04] MEDS: Aspirin 81 mg CHEW TAB* 81 MG TAB.CHEW PO SCH (08:37)
[2019-06-04] MEDS: Metoprolol Tartrate TAB* 25 MG PO SCH ×2 (08:37→21:35)
[2019-06-04] MEDS: Potassium Chloride* LIQUID 20 MEQ/15 ML UDC PO SCH (08:37)
[2019-06-04] MEDS ORDERED: Nitroglycerin 0.1 mg/Hr PATCH* (2.5 MG) TRANSDERM SCH (09:00)
[2019-06-04] MEDS: Insulin LISPRO* 1 UNITS UNIT SUBCUT SCH ×3 (09:34→17:03)
[2019-06-04] MEDS ORDERED: fentaNYL* 50 MCG/ML 2 ML VIAL (100 MCG VIAL) ONE (10:03)
[2019-06-04] MEDS ORDERED: Midazolam* 1 MG/ML 5 ML VIAL (5 MG) ONE (10:03)
[2019-06-04] MEDS ORDERED: Heparin(*) 1000 UNIT/ML 10 ML VIAL CATH LAB IV ONE (10:03)
[2019-06-04] MEDS ORDERED: VERAPAMIL 2.5 MG/ML 2 ML VIAL ** 5 mg/2 ml ONE (10:03)
[2019-06-04] MEDS ORDERED: Heparin 2 UNITS/ML IVPREMIX* 2,000 ML IV ONE (10:04)
[2019-06-04] MEDS ORDERED: nitroGLYCERIN DRIP* 25,000 MCG/250 ML BTL ONE (10:04)
[2019-06-04] MEDS ORDERED: Lidocaine 1% INJ* 10 MG/ML 30 ML SDV ONE (10:04)
[2019-06-04] MEDS ORDERED: Iodixanol 320 (CONTRAST) 100 ML SDV ONE (10:10)
[2019-06-04] MEDS ORDERED: Ticagrelor* 90 MG TAB PO ONE (11:09)
[2019-06-04] MEDS ORDERED: Nitroglycerin TAB 0.4 MG* 0.4 MG TAB SL PRN (11:58)
[2019-06-04] MEDS ORDERED: NS 0.9% 1000 ML** 1,000 ML IV SCH (12:00)
--- NOTE | 2019-06-04 12:00 | CATH ---
"*[facility]* [place] [address] Main: [phone] [email or web address] Cardiac Catheterization Patient: Kizzy Burdick : 1935 Study Date: 06/04/2019 Age: 83 Gender: F HR: Height: 67 in /170.2 cm BSA: 2.05 m^2 Weight: 190.1 lb /86.4 kg BMI: 29.8 kg/m^2 Medical Professionals: Yordan Ibanez MD Ordering Physician: Og Hernandez MD Referring Physician: Og Hernandez MD, - Left coronary angiography. Summary: Right coronary: Distal vessel lesion: There is a 95% stenosis. Recommendations: The patient should undergo coronary percutaneous coronary intervention. History: Functional status: LVEF 45%; prior history of congestive heart failure. Risk factors: Hypertension. Family history is significant for coronary artery disease. Labs, prior tests, procedures, and surgery: Blood tests: Troponin I (pre-procedure) of 0.81 ng/ml. International normalized ratio (INR) of 1.26. Partial thromboplastin time (PTT) of 89.1 sec. Serum potassium (K) of 4.3 mEq/l. Serum sodium (Na) of 141 mEq/l. Serum creatinine (current admission) of 0.99 mg/dl. Blood urea nitrogen of 19 mg/dl. Glucose of 138 mg/dl. Platelet count of 309 th/ul. White blood cell count (WBC) of 0.01 th/ul. Red blood cell count (RBC) of 4290 th/ul. Hematocrit of 39 %. Hemoglobin (pre-procedure) of 12.8 g/dl. Study data: Study status: Cardiac cath: urgent. Percutaneous coronary intervention: urgent. Percutaneous coronary intervention performed for high risk NSTEMI or unstable angina. Location: Catheterization laboratory. Consent: The risks, benefits, and alternatives to the procedure were explained to the patient and/or their healthcare automotive sales representative and written informed consent was obtained. All available pre-procedure labs were reviewed. Height: 170.2 cm. 67 in. Weight: 86.4 kg. 190.1 lb. Body surface area: 2.05 m^2. Body mass index: 29.8 kg/m^2. Procedure: 1. Supplemental oxygen. Oxygen, 3 L/min was administered throughout the procedure. 2. Sedation. was administered. 3. Local anesthesia. 1% lidocaine (1 ml) was administered. 4. Right radial artery access. A 6F Glidesheath Slender sheath was advanced into the vessel. 5. Selective left coronary angiography. A 5F TIG 4.0 catheter was advanced into the left coronary vessel ostium under fluoroscopic guidance. Contrast was injected. Images were obtained in multiple projections. 6. Initial setup. The patient was brought to the laboratory. Surface ECG leads, blood pressure measurements, and pulse oximetric signals were monitored. A baseline seven lead ECG was recorded. A time out was observed per protocol. 7. Skin preparation. The planned puncture sites were prepped and draped in the usual sterile manner. 8. Local anesthesia. 1% lidocaine was administered. Study completion: Minimal estimated blood loss. All catheters inserted during the procedure were removed. There were no apparent complications. Administered medications: (Radial) Nitroglycerin, 300mcg, intra-arterially. (Radial) Verapamil, 3mg, intra-arterially. (Radial) Heparin, 3,000units, intra-arterially. VERSED (Midazolam), for a total dose of 3mg, IV. Fentanyl, for a total dose of 50mcg, IV. NaCl 0.9% , infusion , at a rate of 999 ml/hr. Contrast: Visipaque 75 ml (total dose). Radiation: Fluoroscopy dose: 241.4 cGy. Discharge: The patient tolerated the procedure well and went on to PCI Findings Coronary arteries: The coronary circulation is right dominant. Left main: Normal, 0% stenosis. LAD: Normal, 0% stenosis. Left circumflex: Normal, 0% stenosis. Right coronary: Mildly calcified. Distal vessel lesion: There is a 95% stenosis. Hemodynamics: + + + |Stage description |Condition 1 -| + + + |Arterial pressure s/d (m)|93/53 (70) | + + + Prepared and electronically signed by Yordan Ibanez MD 06/04/2019 11:59"
[2019-06-04] MEDS ORDERED: fentaNYL* 50 MCG/ML 2 ML VIAL (100 MCG VIAL) IV SLOW PU ONE (12:55)
--- NOTE | 2019-06-04 13:51 | PN ---
Subjective Date of Service: 06/04/19 Interval History: HOSPITALIST PROGRESS NOTE Patient seen and examined at bedside. Care reviewed and d/w Tesha Melgar RN. She c/o bilateral calf tenderness. Denies CP, palpitations, or dyspnea. Family History: Unchanged from Admission Social History: Unchanged from Admission Past Medical History: Unchanged from Admission Objective Active Medications: Acetaminophen (Tylenol Tab*) 650 mg PO Q4H PRN PRN Reason: MILD PAIN or TEMP > 100.4 Al Hydrox/Mg Hydrox/Simethicone (Maalox Plus*) 30 ml PO Q6H PRN PRN Reason: INDIGESTION Last Admin: 06/04/19 08:31 Dose: 30 ml Amiodarone HCl (Cordarone Tab*) 100 mg PO 0900,2100 [facility] Last Admin: 06/04/19 08:36 Dose: 100 mg Aspirin (Aspirin 81 Mg Chew Tab*) 81 mg PO DAILY [facility] Last Admin: 06/04/19 08:37 Dose: 81 mg Atorvastatin Calcium (Lipitor*) 40 mg PO 2100 [facility] Dextrose (D50w Syringe 50 Ml*) 12.5 gm IV PUSH .FOR FS < 60 - SS PRN PRN Reason: FS < 60 Digoxin (Digoxin Iv*) 0.125 mg IV SLOW PU DAILY [facility] Last Admin: 06/04/19 08:32 Dose: 0.125 mg Heparin Sodium (Porcine) (Heparin Vial(*)) 0 units IV .FOR HEPARIN BOLUSES [facility] Sodium Chloride (Ns 0.9% 1000 Ml) 1,000 mls @ 100 mls/hr IV PER RATE [facility] Stop: 06/04/19 18:59 Insulin Human Lispro (Humalog*) [address] [facility]; Protocol Last Admin: 06/04/19 11:50 Dose: Not Given Levothyroxine Sodium (Synthroid Tab*) 112 mcg PO QAM@0600 [facility] Last Admin: 06/04/19 05:43 Dose: Not Given Metoprolol Tartrate (Lopressor Tab*) 37.5 mg PO BID [facility] Last Admin: 06/04/19 08:37 Dose: 37.5 mg Mometasone Furoate (Asmanex 220 Mcg Mdi *) 1 puff INH QPM [facility] Last Admin: 06/03/19 20:58 Dose: 220 mcg Nitroglycerin (Nitroglycerin 2.5 Mg Patch*) 1 patch TRANSDERM DAILY@0900 [facility] Last Admin: 06/04/19 08:36 Dose: 1 patch Nitroglycerin (Nitroglycerin Tab 0.4 Mg*) 0.4 mg SL Q5M PRN PRN Reason: ANGINA Pharmacy Profile Note (Nitro Patch/Oint Remove*) 1 note PATCH OFF 2100 [facility] Last Admin: 06/03/19 21:45 Dose: Not Given Potassium Chloride (Potassium Chloride Liquid) 20 meq PO DAILY [facility] Last Admin: 06/04/19 08:37 Dose: Not Given Senna (Senokot 8.6 Mg Tab*) 1 tab PO BID PRN PRN Reason: CONSTIPATION Last Admin: 06/04/19 04:08 Dose: 1 tab Ticagrelor (Brilinta*) 90 mg PO BID [facility] Vital Signs - 8 hr 06/04/19 06/04/19 06/04/19 07:31 08:00 08:32 Temperature 97.1 F Pulse Rate 78 101 Respiratory 16 18 Rate Blood Pressure 115/66 (mmHg) O2 Sat by Pulse 100 Oximetry 06/04/19 06/04/19 06/04/19 09:31 12:03 12:04 Temperature Pulse Rate 78 79 Respiratory 20 19 Rate Blood Pressure 97/75 (mmHg) O2 Sat by Pulse 98 92 Oximetry 06/04/19 06/04/19 06/04/19 12:15 12:31 13:00 Temperature Pulse Rate 82 76 73 Respiratory 18 15 24 Rate Blood Pressure 111/62 106/67 (mmHg) O2 Sat by Pulse 98 99 99 Oximetry 06/04/19 13:05 Temperature Pulse Rate Respiratory 22 Rate Blood Pressure (mmHg) O2 Sat by Pulse Oximetry Oxygen Devices in Use Now: Nasal Cannula Appearance: Pleasant elderly lady lying in bed in NAD Eyes: No Scleral Icterus Ears/Nose/Mouth/Throat: Mucous Membranes Moist Neck: Trachea Midline Respiratory: Symmetrical Chest Expansion and Respiratory Effort, Clear to Auscultation Cardiovascular: RRR - Normal S1 and S2 Extremities: - - Bilateral calf tenderness on palpation, with no edema Neurological: Alert and Oriented x 3, NL Muscle Strength and Tone Result Diagrams: 06/04/19 05:32 06/04/19 05:32 Assess/Plan/Problems-Billing Assessment: Ms Burdick is a 80 yo F with PMH of AFib on Coumadin, HTN, HLD, DM, GERD who presented initially to [place] ER with c/o SOB and in Afib - Patient Problems (1) Afib Comment: - Rate is controlled. - Continue amiodarone and Metoprolol. - Continue Lovenox for now - may change to NOAC tomorrow, but unclear if would continue DAPT with full dose NOAC. (2) NSTEMI (non-ST elevated myocardial infarction) Comment: - S/p stent to mid RCA. - Continue Aspirin, Brilinta, Metoprolol, increase Atorvastatin. (3) Cardiomyopathy Comment: - Echo 06/03/19 EF 45-50% with wall motion abnormality. - Acute systolic CHF resolved for now. (4) Leg pain Comment: - Check LE doppler. (5) DVT prophylaxis Comment: - Lovenox. (6) Diabetes Comment: - A1c 8.3. - Continue Lispro SS. (7) Full code status Current Visit: No Status: Acute Code(s): Z78.9 - OTHER SPECIFIED HEALTH STATUS SNOMED Code(s): 984031633 Status and Disposition: inpatient
--- NOTE | 2019-06-04 15:08 | CATH ---
CC: Dr. Yordan Ibanez, [facility]; Dr. Puckett INTERVENTIONAL REPORT: DATE OF PROCEDURE: 06/04/19 INDICATION FOR THE PROCEDURE: Asked by Dr. Yordan Ibanez, the patient's primary hydraulic controls technician, to perform intervention into the mid right coronary artery in light of presentation with acute coronary syndrome with non-ST elevation myocardial infarction and critical 95% mid right coronary artery lesion. PROCEDURE: Primary stenting of the mid right coronary artery utilizing a 2.75 x 18 mm long Orsiro drug-eluting stent, post dilated 2.8 mm. EQUIPMENT UTILIZED: 1. The guide catheter utilized was a 6-Vincentian Heartrail III IR 1.0 curved catheter. 2. Interventional wire utilized was a KaptaW 190 cm wire. 3. The stent utilized was a 2.75 x 18 mm long Orsiro drug-eluting stent. 4. Post stent deployment balloon catheter utilized was a 2.75 x 12 mm long NC Emerge balloon. 5. The closure device utilized was a regular length Vasc Band. PREPROCEDURE LABORATORY RESULTS: Please refer to the diagnostic study by Dr. Yordan Ibanez for these results. DESCRIPTION OF PROCEDURE: The patient already underwent the diagnostic heart catheterization via the right radial artery by Dr. Yordan Ibanez. The patient had an ACT checked which was found to be subtherapeutic for intervention and as such an additional dose of heparin 2000 units was given. The patient received 180 mg of Brilinta orally crushed. The patient had already been on aspirin for several days. (Of note, these medications were in addition to the radial artery cocktail given by Dr. Yordan Ibanez earlier on starting the diagnostic procedure ). The guide catheter was advanced over the exchange wire and positioned in the right coronary artery and preinterventional injections were made to serve as reference images. ACT was rechecked and found to be therapeutic to proceed and as such the interventional wire was passed across the lesion and placed in the distal right coronary artery. Primary stenting was performed followed by high pressure balloon dilatation utilizing the 2.75 x 12 mm long NC Emerge balloon. After that the artery was assessed for its final result. The catheter , wire, and sheaths were removed and hemostasis was obtained with the Vasc Band. The reverse Barbeau was a B. The total contrast used for the whole procedure was 125 cc of Visipaque dye. The radiation exposure included 10.8 minutes of fluoro time. The air kerma radiation was 2414 mGy. The DAP radiation was 13,816 microgray per meter square. RESULTS: INTERVENTION INTO THE MID RIGHT CORONARY ARTERY: Successful reduction of critical 95% mid right coronary artery lesion with primary stenting utilizing a 2.75 x 18 mm Orsiro drug-eluting stent post dilated to high pressures to obtain 2.8 mm with MATTHIAS- 3 flow, no dissection seen, and 0% residual stenosis. OVERALL ASSESSMENT: Successful intervention into mid right coronary artery as described above. The patient currently is on Brilinta and aspirin having been loaded in the analytical lab analyst. We will continue Brilinta b.i.d. and the [address] Ibanez will decide on timing of starting anticoagulation with her history of atrial fibrillation. We will increase her atorvastatin to 40 mg a day. [id number]/[facility] #: [id number] MTDD
--- NOTE | 2019-06-04 17:26 | PN ---
Progress Note - Progress Note Date of Service: 06/04/19 Note: Patient was transferred to ICU after cardiac catheterization and stenting of mid RCA with drug-eluting stent. She received Brilinta and ASA. She reports she has some discomfort in her right shoulder blade but otherwise no complaints. No chest pain or SOB. BLE ultrasound is negative for right or left DVT. Plan for hemodynamic monitoring and monitoring of right radial access site overnight. Will continue Brilinta BID and ASA 83 Start apixaban BID tomorrow per Dr Ibanez for a fib.
[2019-06-04] MEDS: Mometasone 220 MCG MDI INH SCH (18:10)
[2019-06-04] MEDS: Atorvastatin* 40 MG TAB PO SCH (20:37)
[2019-06-04] MEDS: Ticagrelor* 90 MG TAB PO SCH (20:39)
[2019-06-04] MEDS ORDERED: Enoxaparin(*) 100 MG/ML SYR SUBCUT SCH (22:00)
[2019-06-05] MEDS ORDERED: Furosemide IV* 10 MG/ML 2 ML VIAL (20 MG) IV ONE (01:37)
[2019-06-05] MEDS ORDERED: Nitro 2% OINT* (Nitroglycerin) 1 INCH/PAK PAK TOPICAL ONE (01:37)
[2019-06-05] MEDS ORDERED: Nitro 2% OINT* (Nitroglycerin) 1 INCH/PAK PAK ONE (01:40)
[2019-06-05] MEDS ORDERED: Simethicone TAB* 80 MG TAB.CHEW PO ONE (01:47)
--- NOTE | 2019-06-05 01:55 | PN ---
Hospitalist Progress Note Date of Service: 06/05/19 Cross Cover Note 83F PMH AF on AC, GERD, HTN, HfPEF who presented w NSTEMi, now s/p PCI to RCA who had c/o persitent abdominal bloating and pain in epigastric region. Repeat EKG showing fib with no changes. Last BM 5 days ago VSS On exam pt is well appearing and pleasant Cardiac irreg irreg Lungs Clear Belly distended with prior abd scars noted, sig amt of ventral hernia, soft abdomen pt has voluntary gaurding and winces to touch inititally but then allows deep palpation intermittenly without rebound or gaurding. Most TTP RUQ and epigastric. Tympanic, soft to hypoactive BS Overall pt appears to have gaseous distention, ddx SBO, ileus, much less likely perforation as she is so well appearing -Aim for symptomatic tx of gas with simethicone, offer enema, start bowel regimen -KUB in AM -If any nausea or vomiting would get stat CT
[2019-06-05] MEDS: Sodium Phosphate ADULT ENEMA* 118 ml bottle PR PRN (03:02)
[2019-06-05 04:51] LABS: Calcium 8.4 mg/dL (8.6-10.3); Total Bilirubin 0.9 mg/dL (0.2-1.0)
[2019-06-05 04:56] LABS: INR 1.07 (0.82-1.09)
[2019-06-05 04:57] LABS: EGFR African American 78.7 (>60); EGFR Non-African American 65.1 (>60); Globulin 2.9 g/dL (2-4); HDL Cholesterol 36.4 mg/dL; Total Protein 5.9 g/dL (6.4-8.9)
[2019-06-05] MEDS: Levothyroxine TAB* 112 MCG TAB PO SCH (05:04)
[2019-06-05] MEDS ORDERED: Nitro Patch/OINT Remove TOPICAL ONE (08:00)
[2019-06-05] MEDS ORDERED: Apixaban* 5 MG TAB PO SCH (09:00)
[2019-06-05] MEDS: Aspirin 81 mg CHEW TAB* 81 MG TAB.CHEW PO SCH (09:08)
[2019-06-05] MEDS: Digoxin IV* 0.5 MG/2 ML AMP (0.25 MG/ML) IV SLOW PU SCH (09:10)
[2019-06-05] MEDS: Metoprolol Tartrate TAB* 25 MG PO SCH ×2 (09:13→20:59)
[2019-06-05] MEDS ORDERED: Clopidogrel TAB* 300 MG PO ONE (09:14)
[2019-06-05] MEDS: Amiodarone TAB* 200 MG PO SCH ×2 (09:15→20:58)
[2019-06-05] MEDS: Senna TAB 8.6 mg* TAB PO PRN ×2 (09:15→20:59)
[2019-06-05] MEDS: Insulin LISPRO* 1 UNITS UNIT SUBCUT SCH ×3 (09:16→17:12)
[2019-06-05] MEDS: Potassium Chloride* LIQUID 20 MEQ/15 ML UDC PO SCH (09:16)
[2019-06-05] MEDS: Rivaroxaban TAB(*) 15 MG PO SCH ×2 (09:28→09:39)
--- NOTE | 2019-06-05 09:29 | PN ---
<Jeanne Driscoll - Last Filed: 06/05/19 09:54> Subjective Date of Service: 06/05/19 - NSTEMI Interval History: Patient is s/p NSTEMI resulting in JUAN to mid RCA 06/04/19. h/o PAF historically on Coumadin patient states she was never offered DOAC therapy. Denies h/o bleeding events. Last evening Dr. Tracy evaluated patient due to c/o abdominal pain. Per patient she was given an enema and pain improved. No c/o chest pain, sob, palpitations. resting in bed getting labs drawn upon entering room. Medications Active Medications: Acetaminophen (Tylenol Tab*) 650 mg PO Q4H PRN PRN Reason: MILD PAIN or TEMP > 100.4 Al Hydrox/Mg Hydrox/Simethicone (Maalox Plus*) 30 ml PO Q6H PRN PRN Reason: INDIGESTION Last Admin: 06/04/19 08:31 Dose: 30 ml Amiodarone HCl (Cordarone Tab*) 100 mg PO 0900,2099 [facility] Last Admin: 06/05/19 09:15 Dose: 100 mg Aspirin (Aspirin 81 Mg Chew Tab*) 81 mg PO DAILY [facility] Last Admin: 06/05/19 09:08 Dose: 81 mg Atorvastatin Calcium (Lipitor*) 40 mg PO 2099 [facility] Last Admin: 06/04/19 20:37 Dose: 40 mg Clopidogrel Bisulfate (Plavix Tab*) 75 mg PO DAILY [facility] Dextrose (D50w Syringe 50 Ml*) 12.5 gm IV PUSH .FOR FS < 60 - SS PRN PRN Reason: FS < 60 Digoxin (Digoxin Iv*) 0.125 mg IV SLOW PU DAILY [facility] Last Admin: 06/05/19 09:10 Dose: 0.125 mg Insulin Human Lispro (Humalog*) 0 units SUBCUT AC [facility]; Protocol Last Admin: 06/04/19 17:03 Dose: 3 units Levothyroxine Sodium (Synthroid Tab*) 112 mcg PO QAM@0600 [facility] Last Admin: 06/05/19 05:04 Dose: 112 mcg Metoprolol Tartrate (Lopressor Tab*) 37.5 mg PO BID [facility] Last Admin: 06/05/19 09:13 Dose: 37.5 mg Mometasone Furoate (Asmanex 220 Mcg Mdi *) 1 puff INH QPM [facility] Last Admin: 06/04/19 18:10 Dose: 1 puff Nitroglycerin (Nitroglycerin Tab 0.4 Mg*) 0.4 mg SL Q5M PRN PRN Reason: ANGINA Potassium Chloride (Potassium Chloride Liquid) 20 meq PO DAILY [facility] Last Admin: 06/05/19 09:16 Dose: 20 meq Rivaroxaban (Xarelto(*)) 15 mg PO DAILY [facility] Senna (Senokot 8.6 Mg Tab*) 1 tab PO BID PRN PRN Reason: CONSTIPATION Last Admin: 06/05/19 09:15 Dose: 1 tab Sodium Biphosphate/Sodium Phosphate (Fleet Enema*) 1 bottle CO DAILY PRN PRN Reason: CONSTIPATION Last Admin: 06/05/19 03:02 Dose: 1 bottle Objective Vital Signs: Temp Pulse Resp BP Pulse Ox 98 F 91 18 110/62 98 06/05/19 08:00 06/05/19 09:10 06/05/19 07:38 06/05/19 07:00 06/05/19 07:00 Oxygen Devices in Use Now: Nasal Cannula Appearance: wd wn comfortable Eyes: No Scleral Icterus Neck: - Respiratory: Clear to Auscultation, - - soft rales mid right posterior lung field which clear with coughing Cardiovascular: RRR - s1 s2 irregular Extremities: No Edema, - - right radial access site soft, non tender to palpation. 3+ radial pulse. No hematoma. Neurological: Alert and Oriented x 3 Lines/Tubes/Other Access: Clean, Dry and Intact Peripheral IV Laboratory Results: 06/04/19 05:32 06/05/19 04:20 INR (Anticoag Therapy) 1.07 (0.82-1.09) 06/05/19 04:20 APTT 89.1 seconds (26.0-38.0) H 06/02/19 08:08 Total Bilirubin 0.90 mg/dL (0.2-1.0) 06/05/19 04:20 AST 11 U/L (13-39) L 06/05/19 04:20 ALT 7 U/L (7-52) 06/05/19 04:20 Alkaline Phosphatase 51 U/L (34-104) 06/05/19 04:20 B-Natriuretic Peptide 957 pg/mL (<=100) H 04/03/20 15:17 Total Protein 5.9 g/dL (6.4-8.9) L 06/05/19 04:20 Albumin 3.0 g/dL (3.2-5.2) L 06/05/19 04:20 Globulin 2.9 g/dL (2-4) 06/05/19 04:20 Albumin/Globulin Ratio 1.0 (1-3) 06/05/19 04:20 Triglycerides 121 mg/dL 06/05/19 04:20 Cholesterol 194 mg/dL 06/05/19 04:20 LDL Cholesterol 133 mg/dL 06/05/19 04:20 HDL Cholesterol 36.4 mg/dL 06/05/19 04:20 TSH 1.50 mcIU/mL (0.34-5.60) 06/01/19 15:17 06/01/19 06/01/19 06/01/19 15:17 18:31 21:28 Troponin I 1.13 H* 1.34 H* 1.10 H* 06/02/19 06/02/19 06/03/19 05:35 13:14 05:17 Troponin I 1.01 H* 0.86 H* 0.81 H* Laboratory Results - last 24 hr 06/04/19 06/04/19 06/05/19 11:12 11:22 04:20 INR (Anticoag Therapy) 1.07 POC Activ Clotting Time 203 296 Sodium Potassium Chloride Carbon Dioxide Anion Gap BUN Creatinine Est GFR ( Amer) Est GFR (Non-Af Amer) BUN/Creatinine Ratio Glucose Calcium Total Bilirubin AST ALT Alkaline Phosphatase Total Protein Albumin Globulin Albumin/Globulin Ratio Triglycerides Cholesterol LDL Cholesterol HDL Cholesterol 06/05/19 04:20 INR (Anticoag Therapy) POC Activ Clotting Time Sodium 138 Potassium 4.0 Chloride 102 Carbon Dioxide 24 Anion Gap 12 H BUN 21 Creatinine 0.84 Est GFR ( Amer) 78.7 Est GFR (Non-Af Amer) 65.1 BUN/Creatinine Ratio 25.0 H Glucose 141 H Calcium 8.4 L Total Bilirubin 0.90 AST 11 L ALT 7 Alkaline Phosphatase 51 Total Protein 5.9 L Albumin 3.0 L Globulin 2.9 Albumin/Globulin Ratio 1.0 Triglycerides 121 Cholesterol 194 LDL Cholesterol 133 HDL Cholesterol 36.4 Diagnostic Imaging: Coronary arteries: The coronary circulation is right dominant. Left main: Normal, 0% stenosis. LAD: Normal, 0% stenosis. Left circumflex: Normal, 0% stenosis. Right coronary: Mildly calcified. Distal vessel lesion: There is a 95% stenosis. Hemodynamics: + + + |Stage description |Condition 1 -| + + + |Arterial pressure s/d (m)|93/53 (70) | + + + Prepared and electronically signed by Yordan Ibanez MD 06/04/2019 11:59 Dictated Date/Time: 06/04/19 0944 Transcribed Date/Time Copy to: CC: Og Hernandez MD; No [facility] This report is only to be considered final once signed by the Provider(s) as displayed in the "<Electronically Signed by >" field (s). Absence of a signature indicates the report is in a draft status and still needs to be finalized. In the event this document was created by someone other than the signing Provider, the individual initiating the document will be listed in the "Entered by:" or "Dictated by:" hernández. EKG Data: 06/05/19; Afib rate 91, known LBBB, anterolateral TWI noted c/w prior ECG. Telemetry reviewed; Afib rate 80's. Assessment/Plan #1 NSTEMI; new anterolateral changes s/p JUAN to mid RCA. No recurrent c/o chest discomfort. Troponin mildly elevated. Will convert to Plavix 75/day with Xarelto 15/day ( [place]-PCI trial) Will give 300mg PO Plavix x1 now, stop Brilinta 90 BID( last dose was yesterday evening). Will stop Eliquis 5 BID( last dose last evening) Will start Xarelto 15mg/day starting now. Continue ASA 81/day however, this needs to be discontinued at discharge. Therefore, she should only go home on Plavix 75/day in combination with Xarelto 15/day. I personally spoke with her pharmacy who states her out of pocket expense for Xarelto will be 3$ for a 90 day supply. LDL 133, ON Lipitor 40/day. Right radial access site intact, no hematoma. #2 h/o PAF; Chads Vasc 6 historically on Coumadin. Denies h/o bleeding events or being on DOAC. Given she is s/p PCI to RCA will convert Eliquis to Xarelto 15 /day in combination with Plavix 75/day. Rate controlled on current therapy. Will clarify if goal is rhythm versus rate control with primary foil cutter given she remains in AF despite Amiodarone use. #3 h/o HLD; now on Lipitor 40/day. Goal LDL < 70 #4 Disposition pending course. Will speak with Dr. Ibanez about stopping Amiodarone. Points of Discussion: 25+ minutes with patient and coordinating care. Attending: Yordan Ibanez <Yordan Ibanez - Last Filed: 06/05/19 10:39> Medications Active Medications: Acetaminophen (Tylenol Tab*) 650 mg PO Q4H PRN PRN Reason: MILD PAIN or TEMP > 100.4 Al Hydrox/Mg Hydrox/Simethicone (Maalox Plus*) 30 ml PO Q6H PRN PRN Reason: INDIGESTION Last Admin: 06/04/19 08:31 Dose: 30 ml Amiodarone HCl (Cordarone Tab*) 100 mg PO 0900,2100 [facility] Last Admin: 06/05/19 09:15 Dose: 100 mg Aspirin (Aspirin 81 Mg Chew Tab*) 81 mg PO DAILY [facility] Last Admin: 06/05/19 09:08 Dose: 81 mg Atorvastatin Calcium (Lipitor*) 40 mg PO 2100 [facility] Last Admin: 06/04/19 20:37 Dose: 40 mg Clopidogrel Bisulfate (Plavix Tab*) 75 mg PO DAILY [facility] Dextrose (D50w Syringe 50 Ml*) 12.5 gm IV PUSH .FOR FS < 60 - SS PRN PRN Reason: FS < 60 Digoxin (Digoxin Iv*) 0.125 mg IV SLOW PU DAILY [facility] Last Admin: 06/05/19 09:10 Dose: 0.125 mg Insulin Human Lispro (Humalog*) 0 units SUBCUT [facility]; Protocol Last Admin: 06/05/19 09:16 Dose: 2 units Levothyroxine Sodium (Synthroid Tab*) 112 mcg PO QAM@0600 [facility] Last Admin: 06/05/19 05:04 Dose: 112 mcg Metoprolol Tartrate (Lopressor Tab*) 37.5 mg PO BID [facility] Last Admin: 06/05/19 09:13 Dose: 37.5 mg Mometasone Furoate (Asmanex 220 Mcg Mdi *) 1 puff INH QPM [facility] Last Admin: 06/04/19 18:10 Dose: 1 puff Nitroglycerin (Nitroglycerin Tab 0.4 Mg*) 0.4 mg SL Q5M PRN PRN Reason: ANGINA Potassium Chloride (Potassium Chloride Liquid) 20 meq PO DAILY [facility] Last Admin: 06/05/19 09:16 Dose: 20 meq Rivaroxaban (Xarelto(*)) 15 mg PO DAILY@0830 [facility] Last Admin: 06/05/19 09:39 Dose: Not Given Senna (Senokot 8.6 Mg Tab*) 1 tab PO BID PRN PRN Reason: CONSTIPATION Last Admin: 06/05/19 09:15 Dose: 1 tab Sodium Biphosphate/Sodium Phosphate (Fleet Enema*) 1 bottle CO DAILY PRN PRN Reason: CONSTIPATION Last Admin: 06/05/19 03:02 Dose: 1 bottle Objective Vital Signs: Temp Pulse Resp BP Pulse Ox 98 F 91 19 125/74 98 06/05/19 08:00 06/05/19 09:10 06/05/19 09:47 06/05/19 08:00 06/05/19 09:00 Laboratory Results: 06/04/19 05:32 06/05/19 04:20 INR (Anticoag Therapy) 1.07 (0.82-1.09) 06/05/19 04:20 APTT 89.1 seconds (26.0-38.0) H 06/02/19 08:08 Total Bilirubin 0.90 mg/dL (0.2-1.0) 06/05/19 04:20 AST 11 U/L (13-39) L 06/05/19 04:20 ALT 7 U/L (7-52) 06/05/19 04:20 Alkaline Phosphatase 51 U/L (34-104) 06/05/19 04:20 B-Natriuretic Peptide 957 pg/mL (<=100) H 06/01/19 15:17 Total Protein 5.9 g/dL (6.4-8.9) L 06/05/19 04:20 Albumin 3.0 g/dL (3.2-5.2) L 06/05/19 04:20 Globulin 2.9 g/dL (2-4) 06/05/19 04:20 Albumin/Globulin Ratio 1.0 (1-3) 06/05/19 04:20 Triglycerides 121 mg/dL 06/05/19 04:20 Cholesterol 194 mg/dL 06/05/19 04:20 LDL Cholesterol 133 mg/dL 06/05/19 04:20 HDL Cholesterol 36.4 mg/dL 06/05/19 04:20 TSH 1.50 mcIU/mL (0.34-5.60) 06/01/19 15:17 06/01/19 06/01/19 06/01/19 15:17 18:31 21:28 Troponin I 1.13 H* 1.34 H* 1.10 H* 06/02/19 06/02/19 06/03/19 05:35 13:14 05:17 Troponin I 1.01 H* 0.86 H* 0.81 H* 06/05/19 04:20 Troponin I 0.32 H* Assessment/Plan Patient will stay on Amiodarone and attempt cardioversion as out pt MDB
[2019-06-05] MEDS: Ticagrelor* 90 MG TAB PO SCH (09:39)
--- NOTE | 2019-06-05 10:00 | PN ---
Date of Service: 06/05/19 Critical Care Services: C/o epigastric abdominal pain overnight, described as bloating and cramping. She received an enema overnight and had a small bowel movement as well as flatus. Last BM was 4 days ago. This morning the pain has almost resolved. She denies chest pain, SOB, nausea. The shoulder pain she reported yesterday has resolved. She has been out of bed to go to the bathroom. Vital Signs: Temp Pulse Resp BP SpO2 FiO2 98 F 91 19 125/74 98 06/05/19 08:00 06/05/19 09:10 06/05/19 09:47 06/05/19 08:00 06/05/19 09:00 Physical Exam: Gen: NAD, lying comfortably in bed. HEENT: Normocephalic and atraumatic. Pupils equal. Moist mucous membranes. Neck supple. Lungs: CTA, no accessory muscle use. Cardiac: Irregular rhythm, normal rate. Abdomen: Soft, obese, nontender. Bowel sounds present. Extremities: Warm. No pedal edema b/l. R radial access site clean and dry. Neuro: Alert and oriented x3. Moves all extremities equally. Fluid Balance (Past 24 Hours): I= O= Net Intake & Output 06/03/19 06/04/19 06/05/19 06/06/19 06:59 06:59 06:59 06:59 Intake Total 175.3 1155 500 Output Total 2930 1220 Balance -2754.7 -65 500 Weight 188 lb 12.8 oz 190 lb 9.6 oz 190 lb 9 oz Intake: IV Fluids 0 120 500 IV fluids 0 120 IVPB 0 0 IV fluids 0 0 Heparin 55.3 Oral 120 1035 Output: Urine 2930 1220 Other: Estimated Void Large Small # Voids 1 Labs: Laboratory Results - last 24 hr 06/04/19 06/04/19 06/05/19 11:12 11:22 04:20 INR (Anticoag Therapy) 1.07 POC Activ Clotting Time 203 296 Sodium Potassium Chloride Carbon Dioxide Anion Gap BUN Creatinine Est GFR ( Amer) Est GFR (Non-Af Amer) BUN/Creatinine Ratio Glucose Calcium Total Bilirubin AST ALT Alkaline Phosphatase Total Protein Albumin Globulin Albumin/Globulin Ratio Triglycerides Cholesterol LDL Cholesterol HDL Cholesterol 06/05/19 04:20 INR (Anticoag Therapy) POC Activ Clotting Time Sodium 138 Potassium 4.0 Chloride 102 Carbon Dioxide 24 Anion Gap 12 H BUN 21 Creatinine 0.84 Est GFR ( Amer) 78.7 Est GFR (Non-Af Amer) 65.1 BUN/Creatinine Ratio 25.0 H Glucose 141 H Calcium 8.4 L Total Bilirubin 0.90 AST 11 L ALT 7 Alkaline Phosphatase 51 Total Protein 5.9 L Albumin 3.0 L Globulin 2.9 Albumin/Globulin Ratio 1.0 Triglycerides 121 Cholesterol 194 LDL Cholesterol 133 HDL Cholesterol 36.4 Nutrition: Heart Healthy Impression: 83F admitted with dyspnea and a fib. NSTEMI s/p RCA stent placement A fib, rate controlled HTN Hyperlipidemia DM type 2 GERD Hypothyroidism Plan: Neuro: Tylenol prn for pain and fever Delirium precautions, avoid benzodiazepines if possible. CV: Plavix, ASA 81 per cardiology. Continue amiodarone, digoxin, metoprolol. Starting Xarelto today. Resp: Wean FiO2 to keep O2 >90%. Mometasone GI: HH diet. Bowel regimen ordered. Renal: Strict I&Os ID: No leukocytosis or fever. Heme: Daily CBC DVT ppx: anticoagulation with Xarelto Endo: Lispro sliding scale, goal BG <200 Home levothyroxine MSK: Activity as tolerated Wounds: None Status: Stable Dispo: Transfer to floor Code status: Full
[2019-06-05 10:21] LABS: Troponin I 0.32 ng/mL (<0.03)
[2019-06-05 12:08] LABS: ABS Basophils 0.1 10^3/ul (0-0.2); ABS Eosinophils 0.8 10^3/ul (0-0.6); ABS Lymphocytes 0.6 10^3/ul (1.0-4.8); ABS Monocytes 0.8 10^3/ul (0-0.8); ABS Neutrophils 5.7 10^3/ul (1.5-7.7); Eosinophil % 9.8 %; Hematocrit 39 % (35-47); Hemoglobin 12.6 g/dL (12.0-16.0); Lymphocyte % 7.7 %; Mean Corpuscular HGB Conc 32 g/dL (31-36); Mean Corpuscular Hemoglobin 30 pg (27-31); Mean Corpuscular Volume 93 fL (80-97); Mean Platelet Volume 8.4 fL (7.4-10.4); Nucleated Red Blood Cells % 0.1; Platelet Count 295 10^3/uL (150-450); Red Cell Distribution Width 16 % (10-15); White Blood Count 7.9 10^3/uL (3.5-10.8)
[2019-06-05] MEDS: Mometasone 220 MCG MDI INH SCH (20:43)
[2019-06-05] MEDS: Atorvastatin* 40 MG TAB PO SCH (20:58)
[2019-06-06] MEDS: Levothyroxine TAB* 112 MCG TAB PO SCH (05:58)
[2019-06-06 06:36] LABS: INR 1.45 (0.82-1.09)
[2019-06-06 06:48] LABS: Troponin I 0.23 ng/mL (<0.03)
[2019-06-06] MEDS: Insulin LISPRO* 1 UNITS UNIT SUBCUT SCH ×3 (07:43→17:11)
[2019-06-06] MEDS: Aspirin 81 mg CHEW TAB* 81 MG TAB.CHEW PO SCH (08:12)
[2019-06-06] MEDS: Clopidogrel TAB* 75 MG PO SCH (08:12)
[2019-06-06] MEDS: Potassium Chloride* LIQUID 20 MEQ/15 ML UDC PO SCH (08:12)
[2019-06-06] MEDS: Metoprolol Tartrate TAB* 25 MG PO SCH ×2 (08:12→21:06)
[2019-06-06] MEDS: Rivaroxaban TAB(*) 15 MG PO SCH (08:12)
[2019-06-06] MEDS: Senna TAB 8.6 mg* TAB PO PRN (08:13)
[2019-06-06] MEDS: Digoxin IV* 0.5 MG/2 ML AMP (0.25 MG/ML) IV SLOW PU SCH (08:13)
[2019-06-06] MEDS: Amiodarone TAB* 200 MG PO SCH ×2 (08:13→21:08)
--- NOTE | 2019-06-06 09:34 | PN ---
<BeliaenzoJeanne - Last Filed: 06/06/19 09:27> Subjective Date of Service: 06/06/19 - NSTEMI, PAF Interval History: Patient is s/p NSTEMI resulting in JUAN to mid RCA 06/04/19. h/o PAF historically on Coumadin, now on Plavix in combination with Xarelto 15/day. Patient is still wearing oxygen, adds that she does not wear oxygen at home. She denies chest pain, does report slight dyspnea. She worried about right arm restrictions when she gets home because she pulls her self up in the bathroom. I asked PT to evaluate her. I took her off of Oxygen to capture whether or not she still needs it. Medications Active Medications: Acetaminophen (Tylenol Tab*) 650 mg PO Q4H PRN PRN Reason: MILD PAIN or TEMP > 100.4 Al Hydrox/Mg Hydrox/Simethicone (Maalox Plus*) 30 ml PO Q6H PRN PRN Reason: INDIGESTION Last Admin: 06/04/19 08:31 Dose: 30 ml Amiodarone HCl (Cordarone Tab*) 100 mg PO 0900,2099 [facility] Last Admin: 06/06/19 08:13 Dose: 100 mg Aspirin (Aspirin 81 Mg Chew Tab*) 81 mg PO DAILY [facility] Last Admin: 06/06/19 08:12 Dose: 81 mg Atorvastatin Calcium (Lipitor*) 40 mg PO 2099 [facility] Last Admin: 06/05/19 20:58 Dose: 40 mg Clopidogrel Bisulfate (Plavix Tab*) 75 mg PO DAILY [facility] Last Admin: 06/06/19 08:12 Dose: 75 mg Dextrose (D50w Syringe 50 Ml*) 12.5 gm IV PUSH .FOR FS < 60 - SS PRN PRN Reason: FS < 60 Digoxin (Digoxin Iv*) 0.125 mg IV SLOW PU DAILY [facility] Last Admin: 06/06/19 08:13 Dose: 0.125 mg Insulin Human Lispro (Humalog*) 0 units SUBCUT AC [facility]; Protocol Last Admin: 06/06/19 07:43 Dose: Not Given Levothyroxine Sodium (Synthroid Tab*) 112 mcg PO QAM@0600 [facility] Last Admin: 06/06/19 05:58 Dose: 112 mcg Metoprolol Tartrate (Lopressor Tab*) 37.5 mg PO BID [facility] Last Admin: 06/06/19 08:12 Dose: 37.5 mg Mometasone Furoate (Asmanex 220 Mcg Mdi *) 1 puff INH QPM [facility] Last Admin: 06/05/19 20:43 Dose: Not Given Nitroglycerin (Nitroglycerin Tab 0.4 Mg*) 0.4 mg SL Q5M PRN PRN Reason: ANGINA Potassium Chloride (Potassium Chloride Liquid) 20 meq PO DAILY [facility] Last Admin: 06/06/19 08:12 Dose: 20 meq Rivaroxaban (Xarelto(*)) 15 mg PO DAILY@0830 [facility] Last Admin: 06/06/19 08:12 Dose: 15 mg Senna (Senokot 8.6 Mg Tab*) 1 tab PO BID PRN PRN Reason: CONSTIPATION Last Admin: 06/06/19 08:13 Dose: 1 tab Sodium Biphosphate/Sodium Phosphate (Fleet Enema*) 1 bottle [place] DAILY PRN PRN Reason: CONSTIPATION Last Admin: 06/05/19 03:02 Dose: 1 bottle Objective Vital Signs: Temp Pulse Resp BP Pulse Ox 97.2 F 84 16 143/72 97 06/06/19 07:00 06/06/19 08:13 06/06/19 07:52 06/06/19 07:00 06/06/19 07:00 Oxygen Devices in Use Now: Nasal Cannula Appearance: wd wn comfortable Eyes: No Scleral Icterus Neck: - Respiratory: Symmetrical Chest Expansion and Respiratory Effort, Clear to Auscultation, - Cardiovascular: RRR - s1 s2 irregular Extremities: No Edema, - - right radial access site soft, non tender to palpation. 3+ radial pulse. No hematoma. Neurological: Alert and Oriented x 3 Lines/Tubes/Other Access: Clean, Dry and Intact Peripheral IV Laboratory Results: 06/05/19 05:05 06/05/19 04:20 INR (Anticoag Therapy) 1.45 (0.82-1.09) H 06/06/19 06:13 APTT 89.1 seconds (26.0-38.0) H 06/02/19 08:08 Total Bilirubin 0.90 mg/dL (0.2-1.0) 06/05/19 04:20 AST 11 U/L (13-39) L 06/05/19 04:20 ALT 7 U/L (7-52) 06/05/19 04:20 Alkaline Phosphatase 51 U/L (34-104) 06/05/19 04:20 B-Natriuretic Peptide 957 pg/mL (<=100) H 06/01/19 15:17 Total Protein 5.9 g/dL (6.4-8.9) L 06/05/19 04:20 Albumin 3.0 g/dL (3.2-5.2) L 06/05/19 04:20 Globulin 2.9 g/dL (2-4) 06/05/19 04:20 Albumin/Globulin Ratio 1.0 (1-3) 06/05/19 04:20 Triglycerides 121 mg/dL 06/05/19 04:20 Cholesterol 194 mg/dL 06/05/19 04:20 LDL Cholesterol 133 mg/dL 06/05/19 04:20 HDL Cholesterol 36.4 mg/dL 06/05/19 04:20 TSH 1.50 mcIU/mL (0.34-5.60) 06/01/19 15:17 06/01/19 06/01/19 06/01/19 15:17 18:31 21:28 Troponin I 1.13 H* 1.34 H* 1.10 H* 06/02/19 06/02/19 06/03/19 05:35 13:14 05:17 Troponin I 1.01 H* 0.86 H* 0.81 H* 06/05/19 06/06/19 04:20 06:13 Troponin I 0.32 H* 0.23 H* Laboratory Results - last 24 hr 06/04/19 06/05/19 06/05/19 16:56 04:20 05:05 WBC 7.9 RBC 4.20 Hgb 12.6 Hct 39 MCV 93 MCH 30 MCHC 32 RDW 16 H Plt Count 295 MPV 8.4 Neut % (Auto) 71.9 Lymph % (Auto) 7.7 Morehouse % (Auto) 9.6 Eos % (Auto) 9.8 Baso % (Auto) 1.0 Absolute Neuts (auto) 5.7 Absolute Lymphs (auto) 0.6 L Absolute Monos (auto) 0.8 Absolute Eos (auto) 0.8 H Absolute Basos (auto) 0.1 Absolute Nucleated RBC 0.0 Nucleated RBC % 0.1 INR (Anticoag Therapy) Sodium 138 Potassium 4.0 Chloride 102 Carbon Dioxide 24 Anion Gap 12 H BUN 21 Creatinine 0.84 Est GFR ( Amer) 78.7 Est GFR (Non-Af Amer) 65.1 BUN/Creatinine Ratio 25.0 H Glucose 141 H POC Glucose (mg/dL) 152 H Calcium 8.4 L Total Bilirubin 0.90 AST 11 L ALT 7 Alkaline Phosphatase 51 Troponin I 0.32 H* Total Protein 5.9 L Albumin 3.0 L Globulin 2.9 Albumin/Globulin Ratio 1.0 Triglycerides 121 Cholesterol 194 LDL Cholesterol 133 HDL Cholesterol 36.4 06/05/19 06/05/19 06/05/19 07:57 11:32 13:19 WBC RBC Hgb Hct MCV MCH MCHC RDW Plt Count MPV Neut % (Auto) Lymph % (Auto) Morehouse % (Auto) Eos % (Auto) Baso % (Auto) Absolute Neuts (auto) Absolute Lymphs (auto) Absolute Monos (auto) Absolute Eos (auto) Absolute Basos (auto) Absolute Nucleated RBC Nucleated RBC % INR (Anticoag Therapy) Sodium Potassium Chloride Carbon Dioxide Anion Gap BUN Creatinine Est GFR ( Amer) Est GFR (Non-Af Amer) BUN/Creatinine Ratio Glucose POC Glucose (mg/dL) 135 H 162 H 133 H Calcium Total Bilirubin AST ALT Alkaline Phosphatase Troponin I Total Protein Albumin Globulin Albumin/Globulin Ratio Triglycerides Cholesterol LDL Cholesterol HDL Cholesterol 06/05/19 06/06/19 06/06/19 16:32 06:13 06:13 WBC RBC Hgb Hct MCV MCH MCHC RDW Plt Count MPV Neut % (Auto) Lymph % (Auto) Morehouse % (Auto) Eos % (Auto) Baso % (Auto) Absolute Neuts (auto) Absolute Lymphs (auto) Absolute Monos (auto) Absolute Eos (auto) Absolute Basos (auto) Absolute Nucleated RBC Nucleated RBC % INR (Anticoag Therapy) 1.45 H Sodium Potassium Chloride Carbon Dioxide Anion Gap BUN Creatinine Est GFR ( Amer) Est GFR (Non-Af Amer) BUN/Creatinine Ratio Glucose POC Glucose (mg/dL) 149 H Calcium Total Bilirubin AST ALT Alkaline Phosphatase Troponin I 0.23 H* Total Protein Albumin Globulin Albumin/Globulin Ratio Triglycerides Cholesterol LDL Cholesterol HDL Cholesterol 06/06/19 07:42 WBC RBC Hgb Hct MCV MCH MCHC RDW Plt Count MPV Neut % (Auto) Lymph % (Auto) Morehouse % (Auto) Eos % (Auto) Baso % (Auto) Absolute Neuts (auto) Absolute Lymphs (auto) Absolute Monos (auto) Absolute Eos (auto) Absolute Basos (auto) Absolute Nucleated RBC Nucleated RBC % INR (Anticoag Therapy) Sodium Potassium Chloride Carbon Dioxide Anion Gap BUN Creatinine Est GFR ( Amer) Est GFR (Non-Af Amer) BUN/Creatinine Ratio Glucose POC Glucose (mg/dL) 122 H Calcium Total Bilirubin AST ALT Alkaline Phosphatase Troponin I Total Protein Albumin Globulin Albumin/Globulin Ratio Triglycerides Cholesterol LDL Cholesterol HDL Cholesterol Diagnostic Imaging: Coronary arteries: The coronary circulation is right dominant. Left main: Normal, 0% stenosis. LAD: Normal, 0% stenosis. Left circumflex: Normal, 0% stenosis. Right coronary: Mildly calcified. Distal vessel lesion: There is a 95% stenosis. Hemodynamics: + + + |Stage description |Condition 1 -| + + + |Arterial pressure s/d (m)|93/53 (70) | + + + Prepared and electronically signed by Yordan Ibanez MD 06/04/2019 11:59 Dictated Date/Time: 06/04/19 0944 Transcribed Date/Time Copy to: CC: Og Hernandez MD; No Primary Care Phys,[facility] This report is only to be considered final once signed by the Provider(s) as displayed in the "<Electronically Signed by >" field (s). Absence of a signature indicates the report is in a draft status and still needs to be finalized. In the event this document was created by someone other than the signing Provider, the individual initiating the document will be listed in the "Entered by:" or "Dictated by:" hernández. EKG Data: 06/05/19; Afib rate 91, known LBBB, anterolateral TWI noted c/w prior ECG. 06/06/19; Afib rate 91 with LBBB with transient TWI in anterior leads ? bbb related. Telemetry reviewed; Afib rate 80's with known LBBB Assessment/Plan #1 NSTEMI; Troponin peaked at 1.1 on 06/01/19; s/p JUAN to mid RCA. LVEF 40-45% with new inferior wall motion abnormality. No recurrent c/o chest pain. She is doing well. Right radial access site non tender to palpation with 3+ radial pulse. She is still on oxygen? I have taken her off of it given she does not appear to have conversational dyspnea. she is now on Plavix 75/day in combination with Xarelto 15/day and Aspirin. Aspirin is to be discontinued prior to discharge and she is to only go home on Plavix 75/day and Xarelto 15/ day ( [facility] PCI-AF trial). #2 h/ PAF; Persistently in AF despite Amiodarone use. Last CV was a year ago per patient. dyspnea could be related to loss of atrial kick, although her breathing effort appears stable. I have taken her off of oxygen and placed her on a continuous oxygen monitor to determine if she truly needs supplemental O2. Plan is outpatient CV and to maintain her on Amiodarone, Toprol therapy. OAC = Xarelto 15/day. Although her CrCI is > 50, indication for lower dose DOAC is due to patient being f/p PCI. ( Refer to above #1) #3 c/o SOB on oxygen; will assess O2 level off of oxygen and capture whether or not she needs it upon leaving. #4 Concerns about mobility; PT order placed. #5 disposition pending course. Will assess O2 needs, if she is still requiring O2 will consider inpatient CV given AF could be contributing. will follow. Attending: Laurence Bearden <Laurence Bearden - Last Filed: 06/06/19 16:51> Subjective Interval History: I personally saw and examined the patient approx. 1 PM. The patient notes intermittent epigastric twisting sensation similar but not as strong as chest discomfort on admission. Medications Active Medications: Acetaminophen (Tylenol Tab*) 650 mg PO Q4H PRN PRN Reason: MILD PAIN or TEMP > 100.4 Al Hydrox/Mg Hydrox/Simethicone (Maalox Plus*) 30 ml PO Q6H PRN PRN Reason: INDIGESTION Last Admin: 06/04/19 08:31 Dose: 30 ml Amiodarone HCl (Cordarone Tab*) 100 mg PO 0900,2100 [facility] Last Admin: 06/06/19 08:13 Dose: 100 mg Aspirin (Aspirin 81 Mg Chew Tab*) 81 mg PO DAILY [facility] Last Admin: 06/06/19 08:12 Dose: 81 mg Atorvastatin Calcium (Lipitor*) 40 mg PO 2099 [facility] Last Admin: 06/05/19 20:58 Dose: 40 mg Clopidogrel Bisulfate (Plavix Tab*) 75 mg PO DAILY [facility] Last Admin: 06/06/19 08:12 Dose: 75 mg Dextrose (D50w Syringe 50 Ml*) 12.5 gm IV PUSH .FOR FS < 60 - SS PRN PRN Reason: FS < 60 Digoxin (Lanoxin Tab*) 0.125 mg PO DAILY [facility] Insulin Human Lispro (Humalog*) 0 units SUBCUT [facility]; Protocol Last Admin: 06/06/19 12:30 Dose: Not Given Levothyroxine Sodium (Synthroid Tab*) 112 mcg PO QAM@0600 [facility] Last Admin: 06/06/19 05:58 Dose: 112 mcg Magnesium Hydroxide (Milk Of Magnesia Liq*) 30 ml PO Q6H PRN PRN Reason: CONSTIPATION Metoprolol Tartrate (Lopressor Tab*) 37.5 mg PO BID [facility] Last Admin: 06/06/19 08:12 Dose: 37.5 mg Mometasone Furoate (Asmanex 220 Mcg Mdi *) 1 puff INH QPM [facility] Last Admin: 06/05/19 20:43 Dose: Not Given Nitroglycerin (Nitroglycerin Tab 0.4 Mg*) 0.4 mg SL Q5M PRN PRN Reason: ANGINA Potassium Chloride (Potassium Chloride Liquid) 20 meq PO DAILY [facility] Last Admin: 06/06/19 08:12 Dose: 20 meq Rivaroxaban (Xarelto(*)) 15 mg PO DAILY@0830 [facility] Last Admin: 06/06/19 08:12 Dose: 15 mg Senna (Senokot 8.6 Mg Tab*) 1 tab PO BID PRN PRN Reason: CONSTIPATION Last Admin: 06/06/19 08:13 Dose: 1 tab Simethicone (Mylicon Tab*) 80 mg PO Q6H PRN PRN Reason: gas pain Sodium Biphosphate/Sodium Phosphate (Fleet Enema*) 1 bottle [place] DAILY PRN PRN Reason: CONSTIPATION Last Admin: 06/05/19 03:02 Dose: 1 bottle Objective Vital Signs: Temp Pulse Resp BP Pulse Ox 97.7 F 80 16 115/58 96 06/06/19 11:15 06/06/19 11:15 06/06/19 11:15 06/06/19 11:15 06/06/19 11:15 Laboratory Results: 06/05/19 05:05 06/05/19 04:20 INR (Anticoag Therapy) 1.45 (0.82-1.09) H 06/06/19 06:13 APTT 89.1 seconds (26.0-38.0) H 06/02/19 08:08 Total Bilirubin 0.90 mg/dL (0.2-1.0) 06/05/19 04:20 AST 11 U/L (13-39) L 06/05/19 04:20 ALT 7 U/L (7-52) 06/05/19 04:20 Alkaline Phosphatase 51 U/L (34-104) 06/05/19 04:20 B-Natriuretic Peptide 957 pg/mL (<=100) H 06/01/19 15:17 Total Protein 5.9 g/dL (6.4-8.9) L 06/05/19 04:20 Albumin 3.0 g/dL (3.2-5.2) L 06/05/19 04:20 Globulin 2.9 g/dL (2-4) 06/05/19 04:20 Albumin/Globulin Ratio 1.0 (1-3) 06/05/19 04:20 Triglycerides 121 mg/dL 06/05/19 04:20 Cholesterol 194 mg/dL 06/05/19 04:20 LDL Cholesterol 133 mg/dL 06/05/19 04:20 HDL Cholesterol 36.4 mg/dL 06/05/19 04:20 TSH 1.50 mcIU/mL (0.34-5.60) 06/01/19 15:17 06/01/19 06/01/19 06/01/19 15:17 18:31 21:28 Troponin I 1.13 H* 1.34 H* 1.10 H* 06/02/19 06/02/19 06/03/19 05:35 13:14 05:17 Troponin I 1.01 H* 0.86 H* 0.81 H* 06/05/19 06/06/19 04:20 06:13 Troponin I 0.32 H* 0.23 H* Assessment/Plan As above, s/p RCA stent. Some epigastric symptoms pt worried is angina but pt also has constipation. Continue current cardiac meds as above Recommend ECG prn recurrent possible angina. 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 Does not appear to have exertional increase in SOB. GARCIA: Admission CXR c/w CHF. Multifactorial/differential of afib, RVR, diastolic dysfunction, lung problem , more. Appears anemic on exam today to me, but H+H normal on admission, recheck just in case, should not change as radial stick not femoral. With DM and elevated glucose levels, CAD, CHF, mild CM consider starting SGLT2i for diuretic properties and more. Alternatively or in conjunction with this the patient may feel better with 1x lasix or lasix 2-3 x/week until outpatient CV can be completed..
[2019-06-06] MEDS ORDERED: Magnesium Hydroxide LIQ* 30 ML UDC PO PRN (16:26)
[2019-06-06] MEDS ORDERED: Simethicone TAB* 80 MG TAB.CHEW PO PRN (16:27)
--- NOTE | 2019-06-06 16:38 | PN ---
Subjective Date of Service: 06/06/19 Interval History: Pt is feeling well. She states her stomach has been upset and she has had gas pains. She had a small BM after an enema in the ICU. She states she still feels constipated. Family History: Unchanged from Admission Social History: Unchanged from Admission Past Medical History: Unchanged from Admission Objective Active Medications: Acetaminophen (Tylenol Tab*) 650 mg PO Q4H PRN PRN Reason: MILD PAIN or TEMP > 100.4 Al Hydrox/Mg Hydrox/Simethicone (Maalox Plus*) 30 ml PO Q6H PRN PRN Reason: INDIGESTION Last Admin: 06/04/19 08:31 Dose: 30 ml Amiodarone HCl (Cordarone Tab*) 100 mg PO 0900,2099 [facility] Last Admin: 06/06/19 08:13 Dose: 100 mg Aspirin (Aspirin 81 Mg Chew Tab*) 81 mg PO DAILY [facility] Last Admin: 06/06/19 08:12 Dose: 81 mg Atorvastatin Calcium (Lipitor*) 40 mg PO 2099 [facility] Last Admin: 06/05/19 20:58 Dose: 40 mg Clopidogrel Bisulfate (Plavix Tab*) 75 mg PO DAILY [facility] Last Admin: 06/06/19 08:12 Dose: 75 mg Dextrose (D50w Syringe 50 Ml*) 12.5 gm IV PUSH .FOR FS < 60 - SS PRN PRN Reason: FS < 60 Digoxin (Lanoxin Tab*) 0.125 mg PO DAILY [facility] Insulin Human Lispro (Humalog*) 0 units SUBCUT [facility]; Protocol Last Admin: 06/06/19 12:30 Dose: Not Given Levothyroxine Sodium (Synthroid Tab*) 112 mcg PO QAM@0600 [facility] Last Admin: 06/06/19 05:58 Dose: 112 mcg Magnesium Hydroxide (Milk Of Magnesia Liq*) 30 ml PO Q6H PRN PRN Reason: CONSTIPATION Metoprolol Tartrate (Lopressor Tab*) 37.5 mg PO BID [facility] Last Admin: 06/06/19 08:12 Dose: 37.5 mg Mometasone Furoate (Asmanex 220 Mcg Mdi *) 1 puff INH QPM [facility] Last Admin: 06/05/19 20:43 Dose: Not Given Nitroglycerin (Nitroglycerin Tab 0.4 Mg*) 0.4 mg SL Q5M PRN PRN Reason: ANGINA Potassium Chloride (Potassium Chloride Liquid) 20 meq PO DAILY [facility] Last Admin: 06/06/19 08:12 Dose: 20 meq Rivaroxaban (Xarelto(*)) 15 mg PO DAILY@0830 [facility] Last Admin: 06/06/19 08:12 Dose: 15 mg Senna (Senokot 8.6 Mg Tab*) 1 tab PO BID PRN PRN Reason: CONSTIPATION Last Admin: 06/06/19 08:13 Dose: 1 tab Simethicone (Mylicon Tab*) 80 mg PO Q6H PRN PRN Reason: gas pain Sodium Biphosphate/Sodium Phosphate (Fleet Enema*) 1 bottle [place] DAILY PRN PRN Reason: CONSTIPATION Last Admin: 06/05/19 03:02 Dose: 1 bottle Vital Signs - 8 hr 06/06/19 11:15 Temperature 97.7 F Pulse Rate 80 Respiratory 16 Rate Blood Pressure 115/58 (mmHg) O2 Sat by Pulse 96 Oximetry Oxygen Devices in Use Now: None Appearance: Elderly female sitting up in bed, NAD Eyes: No Scleral Icterus Ears/Nose/Mouth/Throat: Mucous Membranes Moist Respiratory: Symmetrical Chest Expansion and Respiratory Effort, Clear to Auscultation Cardiovascular: NL Sounds; No Murmurs; No JVD, No Edema, - - irregularly irregular, controlled rate Abdominal: NL Sounds; No Tenderness; No Distention Extremities: No Clubbing, Cyanosis Skin: No Nodules or Sclerosis, - - bruising noted on L arm Neurological: Alert and Oriented x 3 Result Diagrams: 06/05/19 05:05 06/05/19 04:20 Assess/Plan/Problems-Billing Ms Burdick is a 80 yo F with PMH of AFib on Coumadin, HTN, HLD, DM, GERD who presented initially to [place] [facility] with c/o SOB and in Afib and was 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 - Patient Problems (1) NSTEMI (non-ST elevated myocardial infarction) Current Visit: Yes Status: Acute Code(s): I21.4 - NON-ST ELEVATION (NSTEMI) MYOCARDIAL INFARCTION SNOMED Code(s): 83405880 Comment: Pt with NSTEMI this admission. Continue aspirin, plavix, metoprolol , and atorvastatin. Will need to follow up with Dr. Ibanez. (2) Afib Current Visit: Yes Status: Acute Code(s): I48.91 - UNSPECIFIED ATRIAL FIBRILLATION SNOMED Code(s): 96245012 Comment: HR is controlled. Will continue amiodarone, digoxin and metoprolol. She has been changed from coumadin to xarelto. Will need to follow up with Dr. Ibanez as outpatient. (3) Cardiomyopathy Current Visit: Yes Status: Acute Code(s): I42.9 - CARDIOMYOPATHY, UNSPECIFIED SNOMED Code(s): 21903633 Comment: Echo 06/03/19 showed EF of 45-50% with wall motion abnormality. No evidence of fluid overload at this time. (4) Type II diabetes mellitus Current Visit: Yes Status: Acute Comment: Blood sugars are under good control. Continue lispro sliding scale. (5) DVT prophylaxis Current Visit: Yes Status: Acute Code(s): [id number] - SNOMED Code(s): 427104339 Comment: xarelto (6) Full code status Current Visit: Yes Status: Acute Code(s): Z78.9 - OTHER SPECIFIED HEALTH STATUS SNOMED Code(s): 674743728 Status and Disposition: inpatient
[2019-06-06 17:29] LABS: Hematocrit 45 % (35-47)
[2019-06-06] MEDS: Mometasone 220 MCG MDI INH SCH (19:22)
[2019-06-06] MEDS: Atorvastatin* 40 MG TAB PO SCH (21:10)
[2019-06-07] MEDS: Sodium Phosphate ADULT ENEMA* 118 ml bottle PR PRN (04:58)
[2019-06-07 06:10] LABS: Hematocrit 36 % (35-47); Hemoglobin 12.2 g/dL (12.0-16.0); Mean Corpuscular HGB Conc 34 g/dL (31-36); Mean Corpuscular Hemoglobin 30 pg (27-31); Mean Corpuscular Volume 90 fL (80-97); Mean Platelet Volume 7.7 fL (7.4-10.4); Platelet Count 295 10^3/uL (150-450); Red Blood Count 4.03 10^6 /uL (3.70-4.87); Red Cell Distribution Width 16 % (10-15); White Blood Count 7.5 10^3/uL (3.5-10.8)
[2019-06-07 06:20] LABS: INR 1.51 (0.82-1.09)
[2019-06-07 06:26] LABS: BUN/Creatinine Ratio 29.6 (8-20); EGFR African American 82.1 (>60); EGFR Non-African American 67.9 (>60); Potassium 4.2 mmol/L (3.5-5.0)
[2019-06-07] MEDS: Levothyroxine TAB* 112 MCG TAB PO SCH (06:35)
[2019-06-07 06:41] LABS: Digoxin 1.1 ng/ml (0.8-2.0)
[2019-06-07] MEDS: Metoprolol Tartrate TAB* 25 MG PO SCH ×2 (08:16→20:43)
[2019-06-07] MEDS: Clopidogrel TAB* 75 MG PO SCH (08:17)
[2019-06-07] MEDS: Amiodarone TAB* 200 MG PO SCH ×2 (08:17→21:12)
[2019-06-07] MEDS: Insulin LISPRO* 1 UNITS UNIT SUBCUT SCH ×3 (08:17→17:15)
[2019-06-07] MEDS: Aspirin 81 mg CHEW TAB* 81 MG TAB.CHEW PO SCH (08:18)
[2019-06-07] MEDS: Rivaroxaban TAB(*) 15 MG PO SCH (08:19)
[2019-06-07] MEDS: Digoxin TAB* 0.125 MG PO SCH (08:19)
[2019-06-07] MEDS: Potassium Chloride* LIQUID 20 MEQ/15 ML UDC PO SCH (08:19)
[2019-06-07 15:59] LABS: Albumin 3.2 g/dL (3.2-5.2); Albumin/Globulin Ratio 1.1 (1-3); Globulin 2.8 g/dL (2-4); Indirect Bilirubin 0.7 mg/dL (0.3-1.0); Total Bilirubin 0.8 mg/dL (0.2-1.0)
--- NOTE | 2019-06-07 16:28 | PN ---
Subjective Date of Service: 06/07/19 Interval History: Pt is feeling ok currently but she states she continues to have epigastric discomfort that comes and goes. It feels like an ache sometimes with a severe twisting feeling. She states it sometimes feels like she cant catch her breath. Family History: Unchanged from Admission Social History: Unchanged from Admission Past Medical History: Unchanged from Admission Objective Active Medications: Acetaminophen (Tylenol Tab*) 650 mg PO Q4H PRN PRN Reason: MILD PAIN or TEMP > 100.4 Last Admin: 06/07/19 08:18 Dose: 650 mg Al Hydrox/Mg Hydrox/Simethicone (Maalox Plus*) 30 ml PO Q6H PRN PRN Reason: INDIGESTION Last Admin: 06/04/19 08:31 Dose: 30 ml Amiodarone HCl (Cordarone Tab*) 100 mg PO 0900,2099 [facility] Last Admin: 06/07/19 08:17 Dose: 100 mg Aspirin (Aspirin 81 Mg Chew Tab*) 81 mg PO DAILY [facility] Last Admin: 06/07/19 08:18 Dose: 81 mg Atorvastatin Calcium (Lipitor*) 40 mg PO 2099 [facility] Last Admin: 06/06/19 21:10 Dose: 40 mg Clopidogrel Bisulfate (Plavix Tab*) 75 mg PO DAILY [facility] Last Admin: 06/07/19 08:17 Dose: 75 mg Dextrose (D50w Syringe 50 Ml*) 12.5 gm IV PUSH .FOR FS < 60 - SS PRN PRN Reason: FS < 60 Digoxin (Lanoxin Tab*) 0.125 mg PO DAILY [facility] Last Admin: 06/07/19 08:19 Dose: 0.125 mg Insulin Human Lispro (Humalog*) 0 units SUBCUT AC [facility]; Protocol Last Admin: 06/07/19 12:02 Dose: 3 units Levothyroxine Sodium (Synthroid Tab*) 112 mcg PO QAM@0600 [facility] Last Admin: 06/07/19 06:35 Dose: 112 mcg Magnesium Hydroxide (Milk Of Magnesia Liq*) 30 ml PO Q6H PRN PRN Reason: CONSTIPATION Metoprolol Tartrate (Lopressor Tab*) 37.5 mg PO BID [facility] Last Admin: 06/07/19 08:16 Dose: 37.5 mg Mometasone Furoate (Asmanex 220 Mcg Mdi *) 1 puff INH QPM [facility] Last Admin: 06/06/19 19:22 Dose: 1 puff Nitroglycerin (Nitroglycerin Tab 0.4 Mg*) 0.4 mg SL Q5M PRN PRN Reason: ANGINA Potassium Chloride (Potassium Chloride Liquid) 20 meq PO DAILY [facility] Last Admin: 06/07/19 08:19 Dose: 20 meq Rivaroxaban (Xarelto(*)) 15 mg PO DAILY@0830 [facility] Last Admin: 06/07/19 08:19 Dose: 15 mg Senna (Senokot 8.6 Mg Tab*) 1 tab PO BID PRN PRN Reason: CONSTIPATION Last Admin: 06/06/19 08:13 Dose: 1 tab Simethicone (Mylicon Tab*) 80 mg PO Q6H PRN PRN Reason: gas pain Last Admin: 06/07/19 08:19 Dose: 80 mg Sodium Biphosphate/Sodium Phosphate (Fleet Enema*) 1 bottle [place] DAILY PRN PRN Reason: CONSTIPATION Last Admin: 06/07/19 04:58 Dose: 1 bottle Vital Signs - 8 hr 06/07/19 06/07/19 08:19 11:15 Temperature 97.5 F Pulse Rate 84 75 Respiratory 16 Rate Blood Pressure 127/61 (mmHg) O2 Sat by Pulse 93 Oximetry Oxygen Devices in Use Now: None Appearance: Elderly female sitting up in bed, NAD Eyes: No Scleral Icterus Ears/Nose/Mouth/Throat: Mucous Membranes Moist Respiratory: Symmetrical Chest Expansion and Respiratory Effort, Clear to Auscultation Cardiovascular: NL Sounds; No Murmurs; No JVD, - - irregular, controlled HR, trace bilateral LE edema Abdominal: NL Sounds; No Tenderness; No Distention Extremities: No Clubbing, Cyanosis Skin: No Nodules or Sclerosis Neurological: Alert and Oriented x 3 Result Diagrams: 06/07/19 06:03 06/07/19 06:03 Assess/Plan/Problems-Billing Ms Burdick is a 80 yo F with PMH of AFib on Coumadin, HTN, HLD, DM, GERD who presented initially to [facility] with c/o SOB and in Afib and was transferred to [facility] 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 - Patient Problems (1) Epigastric pain Current Visit: Yes Status: Acute Code(s): R10.13 - EPIGASTRIC PAIN SNOMED Code(s): 87078179 Comment: Pt describes an intermittent pain in her epigastrum with a twisting feeling. Sometimes it improves after burping but it always seems to return. Pain seems worse after eating. It is not there all the time. Will add LFTs, lipase and check gallbladder US tomorrow AM. I wonder if anxiety is playing some role in her symptoms. (2) NSTEMI (non-ST elevated myocardial infarction) Current Visit: Yes Status: Acute Code(s): I21.4 - NON-ST ELEVATION (NSTEMI) MYOCARDIAL INFARCTION SNOMED Code(s): 48063515 Comment: Pt with NSTEMI this admission. Continue aspirin, plavix, metoprolol , and atorvastatin. Will need to follow up with Dr. Ibanez. (3) Afib Current Visit: Yes Status: Acute Code(s): I48.91 - UNSPECIFIED ATRIAL FIBRILLATION SNOMED Code(s): 95369093 Comment: HR is controlled. Will continue amiodarone, digoxin and metoprolol. She has been changed from coumadin to xarelto. Will need to follow up with Dr. Ibanez as outpatient. (4) Cardiomyopathy Current Visit: Yes Status: Acute Code(s): I42.9 - CARDIOMYOPATHY, UNSPECIFIED SNOMED Code(s): 09412901 Comment: Echo 06/03/19 showed EF of 45-50% with wall motion abnormality. No evidence of fluid overload at this time. (5) Type II diabetes mellitus Current Visit: Yes Status: Acute Comment: Blood sugars are under good control. Continue lispro sliding scale. (6) DVT prophylaxis Current Visit: Yes Status: Acute Code(s): RXS1719 - SNOMED Code(s): 470419418 Comment: carineto (7) Full code status Current Visit: Yes Status: Acute Code(s): Z78.9 - OTHER SPECIFIED HEALTH STATUS SNOMED Code(s): 419076939 Status and Disposition: inpatient
[2019-06-07] MEDS: Mometasone 220 MCG MDI INH SCH (20:12)
[2019-06-07] MEDS: Atorvastatin* 40 MG TAB PO SCH (21:12)
[2019-06-08] MEDS: Levothyroxine TAB* 112 MCG TAB PO SCH (05:25)
[2019-06-08] MEDS: Insulin LISPRO* 1 UNITS UNIT SUBCUT SCH ×3 (07:41→16:39)
[2019-06-08] MEDS: Potassium Chloride* LIQUID 20 MEQ/15 ML UDC PO SCH (09:31)
[2019-06-08] MEDS: Amiodarone TAB* 200 MG PO SCH (09:32)
[2019-06-08] MEDS: Digoxin TAB* 0.125 MG PO SCH (09:32)
[2019-06-08] MEDS: Rivaroxaban TAB(*) 15 MG PO SCH (09:32)
[2019-06-08] MEDS: Clopidogrel TAB* 75 MG PO SCH (09:32)
[2019-06-08] MEDS: Aspirin 81 mg CHEW TAB* 81 MG TAB.CHEW PO SCH (09:32)
[2019-06-08] MEDS: Metoprolol Tartrate TAB* 25 MG PO SCH (09:32)
--- NOTE | 2019-06-08 12:05 | PN ---
Subjective Date of Service: 06/08/19 Interval History: f/u [place]/CAD, CHF, afib patient still having intermittent epigastric discomfort and GARCIA which is not much different than the past several months no chest discomfort telemetry shows rate controlled afib Medications Active Medications: Acetaminophen (Tylenol Tab*) 650 mg PO Q4H PRN PRN Reason: MILD PAIN or TEMP > 100.4 Last Admin: 06/07/19 08:18 Dose: 650 mg Al Hydrox/Mg Hydrox/Simethicone (Maalox Plus*) 30 ml PO Q6H PRN PRN Reason: INDIGESTION Last Admin: 06/04/19 08:31 Dose: 30 ml Amiodarone HCl (Cordarone Tab*) 200 mg PO DAILY [facility] Aspirin (Aspirin 81 Mg Chew Tab*) 81 mg PO DAILY [facility] Last Admin: 06/08/19 09:32 Dose: 81 mg Atorvastatin Calcium (Lipitor*) 40 mg PO 2100 [facility] Last Admin: 06/07/19 21:12 Dose: 40 mg Clopidogrel Bisulfate (Plavix Tab*) 75 mg PO DAILY [facility] Last Admin: 06/08/19 09:32 Dose: 75 mg Dextrose (D50w Syringe 50 Ml*) 12.5 gm IV PUSH .FOR FS < 60 - SS PRN PRN Reason: FS < 60 Insulin Human Lispro (Humalog*) 0 units SUBCUT AC [facility]; Protocol Last Admin: 06/08/19 11:40 Dose: 6 units Levothyroxine Sodium (Synthroid Tab*) 112 mcg PO QAM@0600 [facility] Last Admin: 06/08/19 05:25 Dose: 112 mcg Magnesium Hydroxide (Milk Of Magnesia Liq*) 30 ml PO Q6H PRN PRN Reason: CONSTIPATION Metoprolol Succinate (Toprol Xl Tab*) 50 mg PO BID [facility] Mometasone Furoate (Asmanex 220 Mcg Mdi *) 1 puff INH QPM [facility] Last Admin: 06/07/19 20:12 Dose: 1 puff Nitroglycerin (Nitroglycerin Tab 0.4 Mg*) 0.4 mg SL Q5M PRN PRN Reason: ANGINA Potassium Chloride (Potassium Chloride Liquid) 20 meq PO DAILY [facility] Last Admin: 06/08/19 09:31 Dose: 20 meq Rivaroxaban (Xarelto(*)) 15 mg PO DAILY@0830 [facility] Last Admin: 06/08/19 09:32 Dose: 15 mg Senna (Senokot 8.6 Mg Tab*) 1 tab PO BID PRN PRN Reason: CONSTIPATION Last Admin: 06/06/19 08:13 Dose: 1 tab Simethicone (Mylicon Tab*) 80 mg PO Q6H PRN PRN Reason: gas pain Last Admin: 06/07/19 08:19 Dose: 80 mg Sodium Biphosphate/Sodium Phosphate (Fleet Enema*) 1 bottle [place] DAILY PRN PRN Reason: CONSTIPATION Last Admin: 06/07/19 04:58 Dose: 1 bottle Objective Vital Signs: Temp Pulse Resp BP Pulse Ox 97.5 F 67 20 117/70 98 06/08/19 11:00 06/08/19 11:00 06/08/19 11:00 06/08/19 11:00 06/08/19 11:00 Oxygen Devices in Use Now: Nasal Cannula Appearance: nad, pleasant Eyes: No Scleral Icterus Neck: - Respiratory: Symmetrical Chest Expansion and Respiratory Effort, - - decreased bases Cardiovascular: - - irregularly irregular, no significant murmur, trace left leg edema Abdominal: NL Sounds; No Tenderness; No Distention Extremities: - Neurological: Alert and Oriented x 3 Lines/Tubes/Other Access: Clean, Dry and Intact Peripheral IV Laboratory Results: 06/07/19 06:03 06/07/19 06:03 INR (Anticoag Therapy) 1.51 (0.82-1.09) H 06/07/19 06:03 APTT 89.1 seconds (26.0-38.0) H 06/02/19 08:08 Total Bilirubin 0.80 mg/dL (0.2-1.0) 06/07/19 06:03 Direct Bilirubin 0.10 mg/dL (0.03-0.18) 06/07/19 06:03 Indirect Bilirubin 0.7 mg/dL (0.3-1.0) 06/07/19 06:03 AST 13 U/L (13-39) 06/07/19 06:03 ALT 10 U/L (7-52) 06/07/19 06:03 Alkaline Phosphatase 49 U/L (34-104) 06/07/19 06:03 B-Natriuretic Peptide 957 pg/mL (<=100) H 06/01/19 15:17 Total Protein 6.0 g/dL (6.4-8.9) L 06/07/19 06:03 Albumin 3.2 g/dL (3.2-5.2) 06/07/19 06:03 Globulin 2.8 g/dL (2-4) 06/07/19 06:03 Albumin/Globulin Ratio 1.1 (1-3) 06/07/19 06:03 Triglycerides 121 mg/dL 06/05/19 04:20 Cholesterol 194 mg/dL 06/05/19 04:20 LDL Cholesterol 133 mg/dL 06/05/19 04:20 HDL Cholesterol 36.4 mg/dL 06/05/19 04:20 TSH 1.50 mcIU/mL (0.34-5.60) 06/01/19 15:17 06/01/19 06/01/19 06/01/19 15:17 18:31 21:28 Troponin I 1.13 H* 1.34 H* 1.10 H* 06/02/19 06/02/19 06/03/19 05:35 13:14 05:17 Troponin I 1.01 H* 0.86 H* 0.81 H* 06/05/19 06/06/19 04:20 06:13 Troponin I 0.32 H* 0.23 H* Diagnostic Imaging: Coronary arteries: The coronary circulation is right dominant. Left main: Normal, 0% stenosis. LAD: Normal, 0% stenosis. Left circumflex: Normal, 0% stenosis. Right coronary: Mildly calcified. Distal vessel lesion: There is a 95% stenosis s/p pci Exam Date: 06/08/19 Indication: Right upper quadrant pain. COMPARISON: June 01, 2019 CT Technique: RIGHT upper quadrant ultrasound. Report: Appropriate direction flow documented in the portal and hepatic veins. 18.0 cm liver is normal in echogenicity. Negative for focal hepatic lesions. Negative for intrahepatic biliary dilatation. 0.5 cm common bile duct. Adequately distended gallbladder demonstrates nonspecific mild wall thickening measuring up to 0.5 cm. Negative for cholelithiasis or gallbladder sludge. Negative for pericholecystic fluid. Negative for sonographic Albert's sign. The pancreatic head and tail are partially obscured due to bowel gas with the visualized pancreas unremarkable. Negative for ascites. RIGHT KIDNEY: 9.2 cm x 4.2 cm x 4.4 cm. #. Cortical thickness and echotexture: Normal. #. Focal lesions: None. #. Nephrolithiasis: No conspicuous stones. #. Collecting system: Negative for pelvicaliectasis. IMPRESSION: #. Adequately distended gallbladder demonstrates nonspecific mild wall thickening measuring up to 0.5 cm. Negative for cholelithiasis or gallbladder sludge. Negative for pericholecystic fluid. Negative for sonographic Albert's sign. #. Negative for biliary dilatation. EKG Data: ekg 06/07/2019 afib, ivcd with intermittent rate related lbbb aberrancy, diffuse TWI likely memory in part and less likely digoxin effect Assessment/Plan Changes recommended - change amiodarone from 100 mg po bid to 200 mg daily (ordered). Plans for rhythm control as an outpatient with Dr. Ibanez - discontinue digoxin (ordered) - change metoprolol tartrate 37.5 mg po bid to succinate 50 mg po bid (ordered) - Would discontinue aspirin at discharge and continue plavix and xarelto based on [place] AF-PCI study - Would restart home sglt2 inhibitor at discharge if not on formulary - Home Acei/HCTZ currently held
[2019-06-08] MEDS: Al Hydrox/Mg Hydrox/Simet LIQ* 30 ML UDC PO PRN (14:32)
[2019-06-08 15:44] VITALS: BP 119/54
[2019-06-08] MEDS ORDERED: Metoprolol Succinate XL TAB* 50 MG PO SCH (21:00)
[2019-06-09] MEDS ORDERED: Amiodarone TAB* 200 MG PO SCH (09:00)
--- NOTE | 2019-06-12 16:14 | DS ---
CC: Dr. Puckett; Dr. Ibanez* DATE OF ADMISSION: 06/01/2019. DATE OF DISCHARGE: 06/08/2019. PRIMARY CARE PHYSICIAN: Dr. Puckett. SUPERVISOR HANGING AND TRIMMING: Dr. Ibanez. PRINCIPAL DIAGNOSES: 1. Atrial fibrillation. 2. [id number] NH. 3. Intermittent epigastric discomfort. SECONDARY DIAGNOSES: 1. Hypothyroidism. 2. Type 2 diabetes. 3. Hypertension. 4. Asthma. DISCHARGE MEDICATIONS: 1. Flovent two puffs inhaled twice daily. 2. Amiodarone 200 mg p.o. daily. 3. Levothyroxine 112 mcg p.o. daily. 4. Jardiance 25 mg p.o. daily. 5. Metformin 500 mg p.o. b.i.d. 6. Simethicone 80 mg p.o. q.6 hours prn gas pain. 7. Xarelto 15 mg p.o. daily. 8. Nitroglycerin 0.4 mg sl q.5 minutes prn chest pain. 9. Metoprolol XL 50 mg p.o. b.i.d. 10. Plavix 75 mg p.o. daily. 11. Lipitor 40 mg p.o. at bedtime. HOSPITAL COURSE: Ms. Burdick is an 83-year-old female who follows with Dr. Ibanez for cardiology care who presented to the emergency room at [facility] with complaints of chest pain radiating to her back with associated shortness of breath. She was found to be in atrial fibrillation. She was given IV Diltiazem, IV Lasix, as well as aspirin and nitroglycerin. She was started on a Heparin drip. 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 The patient was ultimately admitted for a [id number] NH and treatment of atrial fibrillation with rapid ventricular response. The patient was seen in consultation by Dr. Hernandez on the day of admission. He recommended continuing IV Heparin and holding Coumadin. It was recommended to use beta blockers for rate control; however, IV Diltiazem could be considered. Additionally, he added low dose Digoxin. Transthoracic echocardiogram was performed on 2019. This revealed an EF of 40 to 45 percent which had decreased from 45 to 50 percent. There was a new inferior wall motion abnormality, new from her last echo of October 2016. The patient continued to be optimized while waiting reduction in her INR. She underwent cardiac catheterization on 2019 which revealed a 95 percent right coronary artery distal lesion. She underwent stenting to this. She had a drug eluting stent placed successfully. The patient recovered well from her catheterization; however, she then began to complain of recurrent epigastric discomfort. It was unclear what this was related to. She was evaluated for possible gallbladder disease as she noted the pain worsened after eating. Ultimately, it was felt that the intermittent epigastric pain she was experiencing was likely related to her hiatal hernia. On her final day of hospitalization, Dr. Boo Bey saw the patient and recommended changing her Amiodarone to 200 mg once daily, discontinuing Digoxin , and increasing her Metoprolol XL. The patient is being discharged on Plavix and Xarelto based on [place] AF-PCI study. The patient's /HCTZ combination therapy was held as her blood pressure was under good control on her current medication regimen. Her blood pressure will need to be monitored and this medication can be added back if needed. PHYSICAL EXAMINATION: On the day of discharge, the patient is awake, alert and oriented, sitting up in bed in no acute distress. Cardiac exam revealed a normal S1, S2 with an irregularly irregular rhythm, the rate was controlled. She had no lower extremity edema. The lungs were clear to auscultation bilaterally. The abdomen is soft, nontender, nondistended. FOLLOW-UP CONCERNS: The patient is being discharged home today, 06/08/2019. The patient is to follow-up with Dr. Puckett in the next one to two weeks and with Dr. Ibanez on 06/14/2019 at 10:45 a.m. ACTIVITY LEVEL: Per post cath instructions. CONDITION ON DISCHARGE: Stable. DIET: Heart-healthy diabetic. TIME SPENT: Thirty-five minutes were spent discharging this patient. [id number]/[facility] #: [id number] [facility]
== END 2019-06-08 17:50 | disposition home or self-care (01) | DRG 247 ==
LOC: ED 14:02 → MEDTELE 16:28 → ICU 06-04 11:59 → MEDTELE 06-05 09:57
PROVIDERS: ADMIT Hospitalist; ATTEND Hospitalist
PROC: 4A023N7 Measurement of Cardiac Sampling and Pressure, Left Heart, Percutaneous Approach (ICD-10-PCS; 2019-06-04)
PROC: B211YZZ Fluoroscopy of Multiple Coronary Arteries using Other Contrast (ICD-10-PCS; 2019-06-04)
PROC: 027044Z Dilation of Coronary Artery, One Artery with Drug-eluting Intraluminal Device, Percutaneous Endoscopic Approach (ICD-10-PCS; principal; 2019-06-04 10:30)
DX: I21.4 Non-ST elevation (NSTEMI) myocardial infarction (principal); I42.9 Cardiomyopathy, unspecified; I50.30 Unspecified diastolic (congestive) heart failure; I11.0 Hypertensive heart disease with heart failure; I25.10 Atherosclerotic heart disease of native coronary artery without angina pectoris; J45.30 Mild persistent asthma, uncomplicated; R10.13 Epigastric pain; I48.0 Paroxysmal atrial fibrillation; E78.5 Hyperlipidemia, unspecified; E11.9 Type 2 diabetes mellitus without complications; K21.9 Gastro-esophageal reflux disease without esophagitis; E03.9 Hypothyroidism, unspecified; I08.1 Rheumatic disorders of both mitral and tricuspid valves; I44.7 Left bundle-branch block, unspecified; K44.9 Diaphragmatic hernia without obstruction or gangrene; K40.90 Unilateral inguinal hernia, without obstruction or gangrene, not specified as recurrent; E83.42 Hypomagnesemia; K57.90 Diverticulosis of intestine, part unspecified, without perforation or abscess without bleeding; E66.9 Obesity, unspecified; Z68.30 Body mass index [BMI] 30.0-30.9, adult; Z85.42 Personal history of malignant neoplasm of other parts of uterus; Z88.1 Allergy status to other antibiotic agents; Z88.2 Allergy status to sulfonamides; Z79.84 Long term (current) use of oral hypoglycemic drugs; Z79.899 Other long term (current) drug therapy; Z79.01 Long term (current) use of anticoagulants; Z81.1 Family history of alcohol abuse and dependence; Z80.49 Family history of malignant neoplasm of other genital organs; Z82.49 Family history of ischemic heart disease and other diseases of the circulatory system; Z85.820 Personal history of malignant melanoma of skin
CPT/HCPCS: 36415; 71045; 74018; 76705; 80048; 80053; 80061; 80076; 80162; 83036; 83690; 83735; 83880; 84443; 84484; 85014; 85018; 85025; 85027; 85347; 85610; 85730; 93005; 93306; 93970; 94640; 96374; 99284; A9270-GY; J1160; J1644; J1650; J1940; J2250; J3010; J3475; J3490